=== PATIENT | female | born 1950 | race Caucasian/White ===

== ENCOUNTER → 2016-10-09 | Outpatient (CLI) | payer OTHER ==
[~2016-10-09] MED LIST: ASPEC81 PO; BUPR-269 PO; CALCTAB5 PO; CHOL100010 PO; INSUINJ4 SQ; METF1000 PO; METO25TA3 PO; MULTTAB58 PO; NTRGSL/4 UT; OMEP40CA PO; RANITAB33 PO; SIMV40TA2 PO; VITAMIN B12 INJ
[2016-10-09 17:53] LABS: CHOLESTEROL/HDL RATIO 2.9
== END | disposition home or self-care (01) ==
LOC: C.LABPVFM 11:28
PROVIDERS: ATTEND Internal Medicine Cardiovascular Disease
DX: E78.00 Pure hypercholesterolemia, unspecified (principal)

== ENCOUNTER → 2016-12-03 | Outpatient (CLI) | payer OTHER ==
--- NOTE | 2016-12-03 12:37 | DIAGNOSTIC IMAGING REPORT ---
ULTRASOUND OF THE CAROTID ARTERIES CLINICAL HISTORY: I65.29 Carotid artery [id number] COMPARISON STUDY: 04/14/2013 TECHNIQUE: Real-time, grayscale, and color Doppler sonography of the carotid arteries was performed. Imaging reviewed in the transverse and longitudinal planes. NASCET criteria was utilized for stenosis calcification. FINDINGS: There is mild to moderate atherosclerotic plaque present . The peak systolic velocity within the right internal carotid artery is 71 cm/sec. The systolic velocity ratio of right internal to common carotid artery is 1.4. The peak systolic velocity within the left internal carotid artery is 70 cm/sec. The systolic velocity ratio left internal to common carotid artery is 1.1. Antegrade flow is seen in the vertebral arteries. The external carotid arteries are patent. Blood pressure in the right arm measured 166 mm/Hg. Blood pressure in the left arm measured 163 mm/Hg. IMPRESSION: No evidence of hemodynamically significant carotid stenosis. Electronically signed by: Nitesh Upton M.D. 12/03/2016 12:35 PM Dictated Date/Time: 12/03/2016 12:34 PM
== END | disposition home or self-care (01) ==
LOC: C.ULTR 11:59
PROVIDERS: ATTEND Nurse Practitioner Family
DX: I65.23 Occlusion and stenosis of bilateral carotid arteries (principal); R42 Dizziness and giddiness; W19.XXXA Unspecified fall, initial encounter

== ENCOUNTER → 2017-01-10 | Outpatient (CLI) | payer OTHER ==
[2017-01-10 17:48] LABS: BLOOD UREA NITROGEN 13 mg/dl (7-18); BUN/CREATININE RATIO 23.4 (10-20); CALCIUM 8.8 mg/dl (8.5-10.1); CARBON DIOXIDE 27 mmol/L (21-32); CHLORIDE 105 mmol/L (98-107); CREATININE 0.56 mg/dl (0.60-1.20); GLUCOSE 118 mg/dl (70-99); SODIUM 142 mmol/L (136-145)
[2017-01-10 17:51] LABS: ESTIMATED AVERAGE GLUCOSE 166 mg/dl; HA1C FLAG Normal (Normal)
== END | disposition home or self-care (01) ==
LOC: C.LABPVFM 10:54
PROVIDERS: ATTEND Nurse Practitioner
DX: E55.9 Vitamin D deficiency, unspecified (principal); I10 Essential (primary) hypertension; E11.9 Type 2 diabetes mellitus without complications

== ENCOUNTER → 2017-01-16 | Outpatient (CLI) | payer OTHER | END | disposition home or self-care (01) | LOC: C.LABPVFM 14:01 | PROVIDERS: ATTEND Nurse Practitioner | DX: E55.9 Vitamin D deficiency, unspecified (principal); E53.8 Deficiency of other specified B group vitamins; R41.3 Other amnesia ==

== ENCOUNTER → 2017-02-25 | Outpatient (CLI) | payer OTHER ==
--- NOTE | 2017-02-25 14:31 | MAMMOGRAPHY REPORT ---
BILATERAL DIGITAL SCREENING MAMMOGRAM WITH CAD: 02/25/2017 CLINICAL HISTORY: Routine screening. TECHNIQUE: Current study was also evaluated with a Computer Aided Detection (CAD) system. Bilateral CC and MLO views were obtained. COMPARISON: Comparison is made to exams dated: 02/23/2016 mammogram, 09/22/2014 mammogram, 09/21/2013 m ammogram, 09/18/2012 mammogram, 01/29/2011 mammogram, and 01/26/2010 mammogram - [facility] enter. BREAST COMPOSITION: The tissue of both breasts is almost entirely fatty. FINDINGS: No suspicious masses, calcifications, or areas of architectural distortion are noted in ei ther breast. There has been no significant interval change compared to prior exams. IMPRESSION: ACR BI-RADS CATEGORY 1: NEGATIVE There is no mammographic evidence of malignancy. A 1 year screening mammogram is recommended. The pa tient will receive written notification of the results. Approximately 10% of breast cancers are not detected with mammography. A negative mammographic report should not delay biopsy if a clinically suggestive mass is present. Mindy Rangel M.D. ah/:02/25/2017 12:15:16 Ultrasound Technol: Thomas Chaudhari RT(R)(M), [facility] letter sent: Normal 1/2 BI-RADS Code: ACR BI-RADS Category 1: Negative
== END | disposition home or self-care (01) ==
LOC: C.MAMM 08:35
PROVIDERS: ATTEND Nurse Practitioner
DX: Z12.31 Encounter for screening mammogram for malignant neoplasm of breast (principal)

== ENCOUNTER → 2017-07-10 | Outpatient (CLI) | payer OTHER ==
[2017-07-10 13:06] LABS: BLOOD UREA NITROGEN 15 mg/dl (7-18); BUN/CREATININE RATIO 23.7 (10-20); CALCIUM 9.5 mg/dl (8.5-10.1); CARBON DIOXIDE 27 mmol/L (21-32); CHLORIDE 103 mmol/L (98-107); CREATININE 0.64 mg/dl (0.60-1.20); GLUCOSE 99 mg/dl (70-99); SODIUM 139 mmol/L (136-145)
[2017-07-10 13:35] LABS: ESTIMATED AVERAGE GLUCOSE 140 mg/dl; HA1C FLAG Normal (Normal)
== END | disposition home or self-care (01) ==
LOC: C.LABPVFM 11:06
PROVIDERS: ATTEND Nurse Practitioner
DX: E11.9 Type 2 diabetes mellitus without complications (principal); I10 Essential (primary) hypertension

== ENCOUNTER → 2017-07-30 | Outpatient (CLI) | payer OTHER ==
--- NOTE | 2017-07-30 16:30 | DIAGNOSTIC IMAGING REPORT ---
RIBS UNILATERAL WITH PA CHEST CLINICAL HISTORY: 67 years-old Female presenting with RIB PAIN LT. TECHNIQUE: Frontal and oblique views of the left ribs as well as PA view of the chest was obtained. COMPARISON: Chest x-ray from 06/20/2014. FINDINGS: Atherosclerosis of the aortic arch. Mild enlargement of the cardiac silhouette, unchanged. Bandlike opacity at the left lung base with blunting of the left costophrenic angle. No pneumothorax. Right lung and pleural space clear. Cholecystectomy clips noted. Suture margins noted in the epigastrium and left mid abdomen, possibly from prior gastric bypass. Cortical deformity of the anterolateral left third rib. No additional cortical deformity to suggest rib fracture. IMPRESSION: 1. Cortical deformity of the anterolateral left third rib. Correlate for point tenderness to assess for acuity. 2. Left basilar atelectasis and trace left pleural effusion suspected. Electronically signed by: Lino Gunter M.D. 07/30/2017 4:28 PM Dictated Date/Time: 07/30/2017 4:26 PM
== END | disposition home or self-care (01) ==
LOC: C.RADPV 15:57
PROVIDERS: ATTEND Family Medicine
DX: R07.81 Pleurodynia (principal); R93.7 Abnormal findings on diagnostic imaging of other parts of musculoskeletal system; R91.8 Other nonspecific abnormal finding of lung field

== ENCOUNTER 2017-08-22 13:16 | Emergency (ER) | payer OTHER ==
[~2017-08-22] VITALS: Ht 144.8 cm; Wt 82.9 kg
[2017-08-22 13:23] VITALS: TEMP 36.7; O2SAT 95; Ht 144.8 cm; Wt 82.9 kg
[2017-08-22 13:49] LABS: BASO % 0.5 %; BASO ABS # 0.04 K/uL (0-0.2); EOS % 1.6 %; EOS ABS # 0.13 K/uL (0-0.5); HEMATOCRIT 38.8 % (37-47); HEMOGLOBIN 12.6 g/dL (12.0-16.0); IG# 0.02 K/uL (0.00-0.02); LYMPH % 21.7 %; LYMPH ABS # 1.75 K/uL (1.2-3.4); MEAN CELL VOLUME 78.5 fL (80-100); MEAN CORPUSCULAR HEMOGLOBIN 25.5 pg (25-34); MEAN CORPUSCULAR HGB CONC 32.5 g/dl (32-36); MEAN PLATELET VOLUME 9.9 fL (7.4-10.4); MONO % 7.7 %; MONO ABS # 0.62 K/uL (0.11-0.59); NEUT % 68.3 %; PLATELET COUNT 233 K/uL (130-400); RED CELL DISTRIBUTION WIDTH CV 14.8 % (11.5-14.5); RED CELL DISTRIBUTION WIDTH SD 42.5 fL (36.4-46.3); WHITE BLOOD COUNT 8.06 K/uL (4.8-10.8)
[2017-08-22 14:00] LABS: PTT PATIENT 23.7 SECONDS (21.0-31.0)
[2017-08-22 14:14] LABS: ALBUMIN 3.7 gm/dl (3.4-5.0); ALT/SGPT 31 U/L (12-78); BLOOD UREA NITROGEN 15 mg/dl (7-18); CALCIUM 9.6 mg/dl (8.5-10.1); CARBON DIOXIDE 27 mmol/L (21-32); CREATININE 0.65 mg/dl (0.60-1.20); GLUCOSE 146 mg/dl (70-99); LIPASE 74 U/L (73-393); POTASSIUM 4.2 mmol/L (3.5-5.1); SODIUM 139 mmol/L (136-145)
--- NOTE | 2017-08-22 14:16 | DIAGNOSTIC IMAGING REPORT ---
HEAD WITHOUT CONTRAST (CT) CT DOSE: 537.48 mGy.cm HISTORY: Mental status change facial droop TECHNIQUE: Multiaxial CT images of the head were performed without the use of intravenous contrast. A dose lowering technique was utilized adhering to the principles of ALARA. Comparison: None. Findings: The paranasal sinuses and mastoid air cells are clear. The calvarium and skull base are intact. The ventricles and sulci are within normal limits. There is no mass, hematoma, midline shift, or acute infarct. Mild chronic small vessel change and atrophy considered age-related. Impression: No acute intracranial abnormality. Mild chronic atrophy and small vessel change unremarkable for age. The above report was generated using voice recognition software. It may contain grammatical, syntax or spelling errors. Electronically signed by: Leo Robles M.D. 08/22/2017 2:15 PM Dictated Date/Time: 08/22/2017 2:09 PM
[2017-08-22 14:20] LABS: ALKALINE PHOSPHATASE 70 U/L (45-117); AST/SGOT 19 U/L (15-37); CKMB 0.7 ng/ml (0.5-3.6); TOTAL PROTEIN 7.7 gm/dl (6.4-8.2)
[2017-08-22] MEDS ORDERED: BUPR200T2 PO (14:22)
[2017-08-22] MEDS ORDERED: METF-384 PO (14:22)
[2017-08-22] MEDS ORDERED: MULT-506 PO (14:22)
[2017-08-22] MEDS ORDERED: METO25TA3 PO (14:22)
[2017-08-22] MEDS ORDERED: CALC-51 PO (14:22)
[2017-08-22] MEDS ORDERED: CYNI1000 IM (14:22)
[2017-08-22] MEDS ORDERED: LISI2.5T5 PO (14:22)
[2017-08-22] MEDS ORDERED: CHOL1000 PO (14:22)
[2017-08-22] MEDS ORDERED: ASPI81TA28 PO (14:22)
[2017-08-22] MEDS ORDERED: INSDGI SC (14:22)
--- NOTE | 2017-08-22 14:42 | EMERGENCY ROOM VISIT NOTE ---
ED Visit Note First contact with patient: 13:27 Patient was seen by our PA/PAINT DIPPER. I was involved in the patient's care and did evaluate the patient myself. I was involved in the care throughout the ER stay. The patient presents with left facial numbness and weakness. 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 She has no extremity numbness or weakness-no other stroke findings. There is no facial cellulitis. Neurology will be contacted for advice on further care.
--- NOTE | 2017-08-22 16:56 | DIAGNOSTIC IMAGING REPORT ---
MRI OF THE BRAIN WITHOUT IV CONTRAST CLINICAL HISTORY: Left-sided facial droop. COMPARISON STUDY: CT of the brain dated 08/22/2017. TECHNIQUE: MRI of the brain was performed utilizing various T1 and T2-weighted sequences in the axial, sagittal, and coronal planes. IV contrast was not administered for this examination. The examination is modestly degraded by motion artifact. FINDINGS: Brain parenchyma: There are age-related involutional changes noting moderate to advanced confluent subcortical and periventricular microangiopathic disease. There is no hemorrhage or mass effect. There is no restricted diffusion to suggest acute ischemia. Thomas-white matter differentiation is preserved. No extra-axial fluid collection is seen. The cerebellar tonsils are normal in configuration. Ventricles, sulci, and cisterns: Prominent secondary to involutional change. Pituitary and sella: Unremarkable. Intracranial vasculature: Normal flow voids are maintained at the skull base. Orbits: The bony orbits are grossly intact. Orbital contents are normal in appearance noting bilateral ocular lens implants. Sinuses and mastoids: There is moderate mucosal thickening the right maxillary antrum. Trace fluid is seen within the sphenoid sinuses. Mucosal of thickening is seen within the ethmoid sinuses. The mastoid air cells are well pneumatized. Calvarium: Unremarkable. Cervical cord: Partially visualized cervical spinal cord is normal in morphology and signal intensity. IMPRESSION: No acute intracranial abnormality. Electronically signed by: Vimal Marquez M.D. 08/22/2017 4:54 PM Dictated Date/Time: 08/22/2017 4:52 PM
[2017-08-22] MEDS ORDERED: NITROFURANTOIN MONOHYDRATE 100 MG CAP PO STA (17:00)
[2017-08-22] MEDS ORDERED: NITR-5 PO (17:11)
[2017-08-22] MEDS ORDERED: PRED20TA2 PO (17:11)
--- NOTE | 2017-08-22 17:13 | EMERGENCY ROOM VISIT NOTE ---
History First contact with patient: 13:27 Chief Complaint: CVA SYMPTOMS Stated Complaint: STROKE SYMPTOMS Nursing Triage Summary: See triage note History of Present Illness The patient is a 67 year old female who presents to the Emergency Room with complaints of left facial weakness and droop which started at 8:30 PM last evening. The patient denies any weakness in her upper or lower extremities. The patient denies any memory loss. The patient denies any visual changes or dizziness. The patient denies any swelling of her legs or leg pain. The patient states that she went to [facility] today for an appointment and was sent here by ambulance for further evaluation. The patient denies any chest pain or shortness of breath. The patient denies any prior stroke she does admit to prior [place]. The patient is followed by Dr. Horowitz for her cardiology. The patient is not on any blood thinners. The patient does take cholesterol medication. Review of Systems 10 system review was performed and was negative unless stated otherwise history of present illness. Past Medical/Surgical History Medical Problems: (1) Diabetes (2) Heart disease (3) Hypertension Surgical Problems: (1) H/O gastric bypass (2) Hx of cholecystectomy Family History Diabetes mellitus FH: gallbladder disease FH: heart disease Hypertension Social History Smoking Status: Former Smoker Alcohol Use: none Drug Use: none Marital Status: Housing Status: lives with family Occupation Status: retired Current/Historical Medications Scheduled Aspirin (Aspirin Ec), 81 MG PO DAILY Bupropion (Wellbutrin Sr), 200 MG PO BID Calcium Carbonate-Vitamin D (Calcium), 1 TAB PO BID Cholecalciferol (Vitamin D3), 3 TAB PO DAILY Cyanocobalamin (Cyanocobalamin), 1 ML IM MONTHLY Insulin Glargine (Lantus), 30 UNITS SC DAILY Lisinopril (Lisinopril), 2.5 MG PO DAILY Metformin Hcl (Glucophage), 1,000 MG PO BID Metoprolol Succ (Toprol Xl) (Toprol-Xl), 12.5 MG PO DAILY Multivitamin (Multivitamin), 1 TAB PO DAILY Nitroglycerin (Nitrostat), 0.4 MG UT PRN Ranitidine Hcl (Zantac), 75 MG PO QAM Simvastatin (Zocor), 40 MG PO HS Physical Exam Vital Signs Date Time Temp Pulse Resp B/P (MAP) Pulse Ox O2 Delivery O2 Flow Rate FiO2 08/22/17 16:50 71 16 170/65 94 Room Air 08/22/17 13:34 68 08/22/17 13:23 95 Room Air 08/22/17 13:23 36.7 68 18 175/91 95 Room Air Physical Exam GENERAL: 67-year-old obese white female appears in no acute distress. MENTAL Status: Alert and oriented 3. EYES: PERRLA. EOMs intact. The patient is able to close her eyes but states she can still see a thin streak of light in the left eye. EARS: Canals clear. TMs without fluid level noted. FACE: Left-sided facial droop is noted. NECK: Supple, no lymphadenopathy noted. No carotid bruits noted. LUNGS: Clear auscultation without wheezes rales or rhonchi. CARDIAC: Regular rate and rhythm without murmur. Pulses is full and equal throughout. ABDOMEN: Positive bowel sounds all 4 quadrants. Soft, nontender to palpation without organomegaly or masses. NEURO: Slight decreased sensation on the left side of the face as compared to the right. Patient is able to raise her eyebrows, puff out her cheeks and stick out her tongue although her tongue deviates to the right. Strength of the tongue is equal to the left as well as to the right. She is able to shrug her shoulders. Bilateral upper and lower extremities with 5 out of 5 strength and symmetrical. Alternating finger motions are intact. Cerebellar function intact with [id number]. Negative pronator drift. LOWER EXTREMITY is: Calves are nontender to palpation . No Cyanosis or Edema Noted Medical Decision & Procedures ER Provider Diagnostic Interpretation: Patient Name: RALPH AGOSTO Unit Number: [id number] Dictated: 08/22/171651 Transcribed: 08/22/171651 EV Printed Date/Time: [~ rep prt dt]/[~ rep prt tm] [~ rep ct labl] - [~ rep ct ivnm] [facility] [place] [address] Dictated: 08/22/171651 Transcribed: 08/22/171651 EV Printed Date/Time: [~ rep prt dt]/[~ rep prt tm] [~ rep ct labl] - [~ rep ct ivnm] MRI OF THE BRAIN WITHOUT IV CONTRAST CLINICAL HISTORY: Left-sided facial droop. COMPARISON STUDY: CT of the brain dated 08/22/2017. TECHNIQUE: MRI of the brain was performed utilizing various T1 and T2-weighted sequences in the axial, sagittal, and coronal planes. IV contrast was not administered for this examination. The examination is modestly degraded by motion artifact. FINDINGS: Brain parenchyma: There are age-related involutional changes noting moderate to advanced confluent subcortical and periventricular microangiopathic disease. There is no hemorrhage or mass effect. There is no restricted diffusion to suggest acute ischemia. Thomas-white matter differentiation is preserved. No extra-axial fluid collection is seen. The cerebellar tonsils are normal in configuration. Ventricles, sulci, and cisterns: Prominent secondary to involutional change. Pituitary and sella: Unremarkable. Intracranial vasculature: Normal flow voids are maintained at the skull base. Orbits: The bony orbits are grossly intact. Orbital contents are normal in appearance noting bilateral ocular lens implants. Sinuses and mastoids: There is moderate mucosal thickening the right maxillary antrum. Trace fluid is seen within the sphenoid sinuses. Mucosal of thickening is seen within the ethmoid sinuses. The mastoid air cells are well pneumatized. Calvarium: Unremarkable. Cervical cord: Partially visualized cervical spinal cord is normal in morphology and signal intensity. IMPRESSION: No acute intracranial abnormality. Electronically signed by: Vimal Marquez M.D. 08/22/2017 4:54 PM Dictated Date/Time: 08/22/2017 4:52 PM The status of this report is Signed. Draft = Not yet reviewed or approved by Radiologist. Signed = Reviewed and approved by Radiologist. <AttendingPhy></AttendingPhy> <FamilyPhy>Eli Gavin C.R.N.P</FamilyPhy> < PrimaryPhy>Eli Gavin C.R.N.P</PrimaryPhy> <UnitNumber>[id number]</ UnitNumber> <VisitNumber>[id number]</VisitNumber> <PatientName>RALPH AGOSTO< /PatientName> <DateOfBirth>1950</DateOfBirth> <Location>[facility]</Location> < ServiceDate>08/22/17</ServiceDate> <MNE>ESINDI</MNE> <OrderingPhy>Ayanna Robles PA-C</OrderingPhy> <OrderingPhyMNE>f rep ord dr forrest</OrderingPhyMNE> < DictatingPhyMNE>f rep dict dr forrest</DictatingPhyMNE> <CCListMNE>f rep ct mne</ CCListMNE> <AdmittingPhyMNE>f pt admit dr forrest</AdmittingPhyMNE> <AttendingPhyMNE >f pt attend dr forrest</AttendingPhyMNE> <ConsultingPhyMNE>f pt consult dr forrest</ConsultingPhyMNE> <FamilyPhyMNE>f pt fam dr frorest</FamilyPhyMNE> <OtherPhyMNE>f pt other dr forrest</OtherPhyMNE> < PrimaryPhyMNE>f pt prim care dr forrest</PrimaryPhyMNE> <ReferringPhyMNE>f pt referring dr forrest</ReferringPhyMNE> Patient Name: RALPH AGOSTO Unit Number: [id number] Dictated: 08/22/171408 Transcribed: 08/22/17 140 MS Printed Date/Time: [~ rep prt dt]/[~ rep prt tm] [~ rep ct labl] - [~ rep ct ivnm] [facility] [place] [address] Dictated: 08/22/171408 Transcribed: 08/22/17 140 MS Printed Date/Time: [~ rep prt dt]/[~ rep prt tm] [~ rep ct labl] - [~ rep ct ivnm] HEAD WITHOUT CONTRAST (CT) CT DOSE: 537.48 mGy.cm HISTORY: Mental status change facial droop TECHNIQUE: Multiaxial CT images of the head were performed without the use of intravenous contrast. A dose lowering technique was utilized adhering to the principles of ALARA. Comparison: None. Findings: The paranasal sinuses and mastoid air cells are clear. The calvarium and skull base are intact. The ventricles and sulci are within normal limits. There is no mass, hematoma, midline shift, or acute infarct. Mild chronic small vessel change and atrophy considered age-related. Impression: No acute intracranial abnormality. Mild chronic atrophy and small vessel change unremarkable for age. The above report was generated using voice recognition software. It may contain grammatical, syntax or spelling errors. Electronically signed by: Leo Robles M.D. 08/22/2017 2:15 PM Dictated Date/Time: 08/22/2017 2:09 PM The status of this report is Signed. Draft = Not yet reviewed or approved by Radiologist. Signed = Reviewed and approved by Radiologist. <AttendingPhy></AttendingPhy> <FamilyPhy>Eli Gavin C.R.N.P</FamilyPhy> < PrimaryPhy>Eli Gavin C.R.N.P</PrimaryPhy> <UnitNumber>[id number]</ UnitNumber> <VisitNumber>[id number]</VisitNumber> <PatientName>RALPH AGOSTO< /PatientName> <DateOfBirth>1950</DateOfBirth> <Location>[facility]</Location> < ServiceDate>08/22/17</ServiceDate> <MNE>ESINDI</MNE> <OrderingPhy>Ayanna Robles PA-C</OrderingPhy> <OrderingPhyMNE>f rep ord dr forrest</OrderingPhyMNE> < DictatingPhyMNE>f rep dict dr forrest</DictatingPhyMNE> <CCListMNE>f rep ct mne</ CCListMNE> <AdmittingPhyMNE>f pt admit dr forrest</AdmittingPhyMNE> <AttendingPhyMNE >f pt attend dr forrest</AttendingPhyMNE> <ConsultingPhyMNE>f pt consult dr forrest</ConsultingPhyMNE> <FamilyPhyMNE>f pt fam dr forrest</FamilyPhyMNE> <OtherPhyMNE>f pt other dr forrest</OtherPhyMNE> < PrimaryPhyMNE>f pt prim care dr forrest</PrimaryPhyMNE> <ReferringPhyMNE>f pt referring dr forrest</ReferringPhyMNE> Laboratory Results 08/22/17 13:35 Red Blood Count 4.94, Mean Corpuscular Volume 78.5, Mean Corpuscular Hemoglobin 25.5, Mean Corpuscular Hemoglobin Concent 32.5, Mean Platelet Volume 9.9, Neutrophils (%) (Auto) 68.3, Lymphocytes (%) (Auto) 21.7, Monocytes (%) (Auto) 7.7, Eosinophils (%) (Auto) 1.6, Basophils (%) (Auto) 0.5, Neutrophils # (Auto) 5.50, Lymphocytes # (Auto) 1.75, Monocytes # (Auto) 0.62, Eosinophils # (Auto) 0.13, Basophils # (Auto) 0.04 08/22/17 13:35 Test 08/22/17 13:35 08/22/17 15:07 White Blood Count 8.06 K/uL (4.8-10.8) Red Blood Count 4.94 M/uL (4.2-5.4) Hemoglobin 12.6 g/dL (12.0-16.0) Hematocrit 38.8 % (37-47) Mean Corpuscular Volume 78.5 fL (80-100) Mean Corpuscular Hemoglobin 25.5 pg (25-34) Mean Corpuscular Hemoglobin Concent 32.5 g/dl (32-36) Platelet Count 233 K/uL (130-400) Mean Platelet Volume 9.9 fL (7.4-10.4) Neutrophils (%) (Auto) 68.3 % Lymphocytes (%) (Auto) 21.7 % Monocytes (%) (Auto) 7.7 % Eosinophils (%) (Auto) 1.6 % Basophils (%) (Auto) 0.5 % Neutrophils # (Auto) 5.50 K/uL (1.4-6.5) Lymphocytes # (Auto) 1.75 K/uL (1.2-3.4) Monocytes # (Auto) 0.62 K/uL (0.11-0.59) Eosinophils # (Auto) 0.13 K/uL (0-0.5) Basophils # (Auto) 0.04 K/uL (0-0.2) RDW Standard Deviation 42.5 fL (36.4-46.3) RDW Coefficient of Variation 14.8 % (11.5-14.5) Immature Granulocyte % (Auto) 0.2 % Immature Granulocyte # (Auto) 0.02 K/uL (0.00-0.02) Prothrombin Time 10.0 SECONDS (9.0-12.0) Prothromb Time International Ratio 1.0 (0.9-1.1) Activated Partial Thromboplast Time 23.7 SECONDS (21.0-31.0) Partial Thromboplastin Ratio 0.9 Anion Gap 10.0 mmol/L (3-11) Est Creatinine Clear Calc Drug Dose 75.7 ml/min Estimated GFR () 107.2 Estimated GFR (Non- 92.5 BUN/Creatinine Ratio 22.3 (10-20) Calcium Level 9.6 mg/dl (8.5-10.1) Total Bilirubin 0.6 mg/dl (0.2-1) Direct Bilirubin 0.1 mg/dl (0-0.2) Aspartate Amino Transf (AST/SGOT) 19 U/L (15-37) Alanine Aminotransferase (ALT/SGPT) 31 U/L (12-78) Alkaline Phosphatase 70 U/L (45-117) Total Creatine Kinase 53 U/L (26-192) Creatine Kinase MB 0.7 ng/ml (0.5-3.6) Creatine Kinase MB Ratio 1.3 (0-3.0) Troponin I < 0.015 ng/ml (0-0.045) Pro-B-Type Natriuretic Peptide 202 pg/ml (0-900) Total Protein 7.7 gm/dl (6.4-8.2) Albumin 3.7 gm/dl (3.4-5.0) Lipase 74 U/L (73-393) Urine Color YELLOW Urine Appearance CLEAR (CLEAR) Urine pH 7.5 (4.5-7.5) Urine Specific Witt 1.010 (1.000-1.030) Urine Protein NEG (NEG) Urine Glucose (UA) NEG (NEG) Urine Ketones NEG (NEG) Urine Occult Blood NEG (NEG) Urine Nitrite POS (NEG) Urine Bilirubin NEG (NEG) Urine Urobilinogen NEG (NEG) Urine Leukocyte Esterase MODERATE (NEG) Urine WBC (Auto) 1-5 /hpf (0-5) Urine RBC (Auto) 0-4 /hpf (0-4) Urine Hyaline Casts (Auto) 0 /lpf (0-5) Urine Epithelial Cells (Auto) 20-30 /lpf (0-5) Urine Bacteria (Auto) 4+ (NEG) ECG Indication: other (facial droop) Rhythm: normal sinus Findings: no acute ischemic change Change: no significant change ED Course The patient was evaluated. The patient's EMR medication list were reviewed. Patient's EKG was reviewed and interpreted by myself. There are no significant changes from 06/19/2014 as above. IV access was obtained. The patient was placed on a monitor and continuous pulse ox. CBC and differential, renal profile, LFTs and lipase levels were ordered. Coags were ordered. CK-MB, troponin and BNP were ordered. CT of the head was ordered interpreted by radiologist as above without any acute findings. Labs are reviewed and were unremarkable. The patient was independently evaluated by Dr. Prasad who agreed with treatment plan. I contacted Dr. Lara about the patient's physical findings. He stated if we got an MRI of the brain and that was negative this was most likely Smith's palsy. An MRI of the brain was then ordered. I spoke with the radiologist who stated an MRI without contrast was adequate MRI was reviewed as above without any abnormal findings. Labs are reviewed. Coags were normal. The patient's glucose was slightly elevated at 146. Remainder labs are unremarkable. Urinalysis revealed positive leukocytes positive nitrates and bacteria. The patient was given Macrobid 100 mg by mouth. She was also given prednisone 40 mg by mouth in the ER. The patient was informed of all findings and discharged home in stable condition.. Medical Decision Differential diagnosis include TIA, CVA, Smith's palsy [place] Drug Monitoring Program Search Results: patient reviewed within database Head Trauma GCS Score: 14 Medication Reconcilliation Current Medication List: was personally reviewed by me Blood Pressure Screening Patient's blood pressure: Elevated blood pressure Blood pressure disposition: Elevated BP felt to be situational Impression Primary Impression: Smith's palsy Additional Impression: UTI (urinary tract infection) Departure Information Dispostion Home / Self-Care Condition GOOD Prescriptions Nitrofurantoin Monohyd Macrocr (Macrobid) 100 Mg Cap 100 MG PO BID for 7 Days, #14 CAP Prov: Ayanna Robles PA-C 08/22/17 Prednisone (Prednisone Tab) 20 Mg Tab 2 TAB PO DAILY for 4 Days, #8 TAB Prov: Ayanna Robles PA-C 08/22/17 Referrals Eli Gavin, C.R.N.P (PCP) Forms HOME CARE DOCUMENTATION FORM, IMPORTANT VISIT INFORMATION, WORK / SCHOOL INSTRUCTIONS Patient Instructions ED UTI Cystitis Female, My [facility] Additional Instructions Take prednisone as prescribed. Keep close eye on your blood sugars all taking the prednisone since they may make her blood sugars go up. Take Macrobid as prescribed. Push fluids. Use [id number] Systane eye lubrication to the left eye until symptoms have resolved. Follow-up with your family doctor on Saturday for reevaluation. If symptoms worsen in the interim, return to ER.. Problem Qualifiers Additional Impression: UTI (urinary tract infection) Urinary tract infection type: acute cystitis Hematuria presence: without hematuria Qualified Codes: N30.00 - Acute cystitis without hematuria
[2017-08-22 17:42] VITALS: BP 115/76; PULSE 75; O2SAT 98
== END 2017-08-22 17:43 | disposition home or self-care (01) ==
LOC: EDBD 13:16 → C.EDB 13:17
DX: G51.0 Bell's palsy (principal); N39.0 Urinary tract infection, site not specified; I25.2 Old myocardial infarction; E11.9 Type 2 diabetes mellitus without complications; I10 Essential (primary) hypertension; Z90.49 Acquired absence of other specified parts of digestive tract; Z98.84 Bariatric surgery status; Z83.3 Family history of diabetes mellitus; Z82.49 Family history of ischemic heart disease and other diseases of the circulatory system; Z87.891 Personal history of nicotine dependence; Z79.82 Long term (current) use of aspirin; Z79.4 Long term (current) use of insulin; Z79.899 Other long term (current) drug therapy; E66.9 Obesity, unspecified; Z68.39 Body mass index [BMI] 39.0-39.9, adult

== ENCOUNTER → 2017-08-26 | Outpatient (CLI) | payer OTHER ==
[~2017-08-26] MED LIST changes: -ASPEC81 PO; +ASPI81TA28 PO; -BUPR-269 PO; +BUPR200T2 PO; +CALC-51 PO; -CALCTAB5 PO; +CHOL1000 PO; -CHOL100010 PO; +CYNI1000 IM; +INSDGI SC; -INSUINJ4 SQ; +LISI2.5T5 PO; +METF-384 PO; -METF1000 PO; +MULT-506 PO; -MULTTAB58 PO; +NITR-5 PO; -OMEP40CA PO; +PRED20TA2 PO; -VITAMIN B12 INJ
== END | disposition home or self-care (01) ==
LOC: C.LABPVFM 13:40
PROVIDERS: ATTEND Family Medicine
DX: G51.0 Bell's palsy (principal)

== ENCOUNTER → 2017-10-11 | Outpatient (CLI) | payer OTHER ==
[~2017-10-11] MED LIST changes: -NITR-5 PO; -PRED20TA2 PO
== END | disposition home or self-care (01) ==
LOC: C.LABPVFM 10:47
PROVIDERS: ATTEND Internal Medicine Cardiovascular Disease
DX: I10 Essential (primary) hypertension (principal); E78.00 Pure hypercholesterolemia, unspecified

== ENCOUNTER → 2017-12-03 | Outpatient (CLI) | payer OTHER ==
[~2017-12-03] MED LIST changes: +LISI-1116 PO; -LISI2.5T5 PO
[2017-12-03 13:37] LABS: HEMOGLOBIN A1C 7.3 % (4.5-5.6)
[2017-12-03 14:14] LABS: BLOOD UREA NITROGEN 12 mg/dl (7-18); CALCIUM 9.3 mg/dl (8.5-10.1); CARBON DIOXIDE 27 mmol/L (21-32); CREATININE 0.61 mg/dl (0.60-1.20); GLUCOSE 128 mg/dl (70-99); SODIUM 139 mmol/L (136-145)
== END | disposition home or self-care (01) ==
LOC: C.LABPVFM 11:12
PROVIDERS: ATTEND Family Medicine
DX: I10 Essential (primary) hypertension (principal); E11.9 Type 2 diabetes mellitus without complications; R30.0 Dysuria

== ENCOUNTER → 2017-12-09 | Outpatient (CLI) | payer OTHER | END | disposition home or self-care (01) | LOC: C.LABPVFM 13:30 | PROVIDERS: ATTEND Nurse Practitioner | DX: R53.83 Other fatigue (principal); R00.2 Palpitations ==

== ENCOUNTER → 2018-02-27 | Outpatient (CLI) | payer OTHER ==
--- NOTE | 2018-02-27 16:00 | MAMMOGRAPHY REPORT ---
BILATERAL DIGITAL SCREENING MAMMOGRAM TOMOSYNTHESIS WITH CAD: 02/27/2018 TECHNIQUE: The study was acquired using full field digital technology and interpreted from soft copy. Breast tomosynthesis in addition to standard 2D mammography was performed. Current study was also ev aluated with a Computer Aided Detection (CAD) system. COMPARISON: Comparison is made to exams dated: 02/25/2017 mammogram, 02/23/2016 mammogram, 09/22/2014 m ammogram, 09/21/2013 mammogram, 09/18/2012 mammogram, and 01/29/2011 mammogram - [facility] enter. BREAST COMPOSITION: The tissue of both breasts is almost entirely fatty. FINDINGS: No suspicious masses, calcifications, or areas of architectural distortion are noted in either breast . There has been no significant interval change compared to prior exams. Scattered bilateral benign-a ppearing calcifications are not significantly changed. Right subareolar asymmetry on the cc view is stable compared to prior exams including the 2009 exam. IMPRESSION: ACR BI-RADS CATEGORY 2: BENIGN There is no mammographic evidence of malignancy. A 1 year screening mammogram is recommended.( 019) The patient will receive written notification of the results. Some breast cancers are not detected with mammography. A negative mammographic report should not alaina y biopsy if a clinically suggestive mass is present. Mindy Rangel M.D. ah/:02/27/2018 13:57:37 Corporate Representative: RT [facility](Daniele)(M), [facility] letter sent: Normal 1/2 BI-RADS Code: ACR BI-RADS Category 2: Benign
== END | disposition home or self-care (01) ==
LOC: C.MAMM 13:30
PROVIDERS: ATTEND Nurse Practitioner
DX: Z12.31 Encounter for screening mammogram for malignant neoplasm of breast (principal)

== ENCOUNTER 2020-04-05 15:05 | Observation (INO) ==
[2020-04-05] MEDS ORDERED: SODIUM CHLORIDE 0.9% 1000ML 1,000 ML IV ONE (15:18)
[2020-04-05] MEDS ORDERED: ONDANSETRON INJ 2 MG/ML 2 ML VIAL IV STA (15:18)
[2020-04-05 15:35] LABS: Basophils # (auto) 0.02 K/uL (0-0.2); Basophils % (auto) 0.3 %; Eosinophils # (auto) 0.15 K/uL (0-0.5); Eosinophils % (auto) 2.1 %; Hematocrit (blood only) 40.6 % (37-47); Hemoglobin 13.2 g/dL (12.0-16.0); Immature Granulocytes # (auto) 0.02 K/uL (0.00-0.02); Immature Granulocytes % (auto) 0.3 %; Lymphocytes # (auto) 1.75 K/uL (1.2-3.4); Lymphocytes % (auto) 24.8 %; Mean Corpuscular Hemoglobin 26.5 pg (25-34); Mean Corpuscular Hgb Conc 32.5 g/dL (32-36); Mean Corpuscular Volume 81.4 fL (80-100); Mean Platelet Volume 10.2 fL (7.4-10.4); Monocytes # (auto) 0.63 K/uL (0.11-0.59); Monocytes % (auto) 8.9 %; Neutrophils # (auto) 4.48 K/uL (1.4-6.5); Neutrophils % (auto) 63.6 %; Platelet Count 211 K/uL (130-400); RDW Coefficient of Variation 14.5 % (11.5-14.5); RDW Standard Deviation 42.6 fL (36.4-46.3); Red Blood Count 4.99 M/uL (4.2-5.4); White Blood Count 7.05 K/uL (4.8-10.8)
--- NOTE | 2020-04-05 15:35 | Emergency Department Note ---
ED Visit Note I assisted Dr. Vargas in the care of this patient. Please see attending attestation for additional information. William Nunez DO Resident, Family & Community Medicine, [facility] . Resident Activity Tracking Resident Involvement: Resident Care Provided Care Provided: Adult Hospital Medicine : Headache Qualifiers: Headache type: unspecified Headache chronicity pattern: acute headache Intractability: not intractable Qualified Code(s): R51 - Headache
[2020-04-05] MEDS ORDERED: OPTIRAY 320 125ml IV ONE (15:43)
[2020-04-05 15:46] LABS: Partial Thromboplastin Ratio 0.9; Partial Thromboplastin Time 24.1 Seconds (21.0-31.0); Prothrombin Time 10.8 Seconds (9.0-12.0)
[2020-04-05 15:47] LABS: iSTAT Creatinine 0.4 mg/dl (0.6-1.3); iSTAT Hemoglobin 12.6 g/dl (12.0-16.0); iSTAT Ionized Calcium 1.18 mmol/l (1.12-1.32); iSTAT Potassium 4.3 mmol/L (3.3-5.0)
--- NOTE | 2020-04-05 15:50 | Emergency Department Note ---
Impression & Plan Brain TIA, Headache, Nausea ED Provider Note Provider: Bradley Vargas MD DATE OF SERVICE: 04/05/2020 CHIEF COMPLAINT: Weakness, headache, nausea HISTORY OF PRESENT ILLNESS: Patient is a 70-year-old female history of diabetes, CAD, hypertension, hyperlipidemia presenting here today via ambulance from her PCP's office. Around 1:45 PM developed some right-sided weakness in the right upper extremity and some slurred speech and right facial droop. Denies any trauma or recent illness. This has markedly improved since that time. Denies speech issues currently. Denies difficulty walking. Endorses some headache but is improving and nausea. Blood pressure was elevated for EMS but is improving here. Given 2 baby aspirin prior to arrival. Denies any visual changes. Denies a history of stroke. REVIEW OF SYSTEMS: A total of 10 review of systems was obtained and negative except as stated above in the HPI. PAST MEDICAL HISTORY: As noted above MEDICATIONS: Reviewed home medications. SOCIAL HISTORY: , lives at home, distant former smoker PHYSICAL EXAM: GENERAL: alert and oriented in no acute distress on stretcher Head: normocephalic and atraumatic EYES: No injection, discharge or icterus. PERRL NECK: Trachea midline. Supple. ENT: Mucous membranes pink and moist. Pharynx without erythema or exudate. LUNGS: Airway patent. No retractions. Breath sounds clear HEART: Regular rate and rhythm. No chest wall tenderness ABDOMEN: Soft and non-tender, without guarding or rebound. SKIN: Acyanotic, warm, dry, without rashes EXTREMITIES: Without swelling, tenderness or deformity NEUROLOGICAL: No aphasia. No facial droop or slurred speech at this time. Normal strength and tone in the extremities. Sensation maybe slightly decreased in RUE. No pronator drift or finger to nose ataxia. EK beats per normal sinus rhythm. No PVC. No acute ST segment elevation or depression. Lead III T wave inversion is notable. In comparison to previous available from August 222017 no change. CONTINUOUS CARDIAC MONITORING: was ordered and showed a heart rate of 65 bpm in NSR Patient's hypertension was referred to the hospitalist HOSPITAL COURSE: 1517 Resident evaluated the patient. 1534 Patient was first seen and H&P performed by myself 1608 Patient reassessed and updated. Patient was resting in bed states still some mild headache but no longer with weakness of the right upper extremity. Patient's laboratory studies and imaging reviewed. Differential includes Infection, dehydration, metabolic abnormality, hypo/hyperglycemia, electrolyte disturbance, anemia, hypoxia, cardiac sources, intracerebral event, toxicologic, neurologic, as well as other pathologies. IMPRESSION/MEDICAL DECISION MAKING: Patient presents with concerning symptoms developing of the past 2 hours for stroke. Made a stroke alert given this. Symptoms are mild now and given this I do not feel that she be a good TPA candidate given the risks associated with the medication. Blood pressure noted to be elevated but somewhat improving. Taken for scans. Basic labs obtained. No significant laboratory abnormality. CT of the head without evidence of bleed or mass. CT angiogram without significant acute occlusive disease noted per radiology report. Patient has minimal to no symptoms at this time. Do not believe again given this that she is a TPA candidate. Will admit for TIA-like symptomatologies given her age and risk factors as well as presentation earlier. Given some Reglan she does complain still of a mild headache. Blood pressure has been improving. Given 2 additional baby aspirin for total of 4 today. Patient's urinalysis is somewhat questionable will send for culture at this time but given she does endorse some dysuria treated with ceftriaxone empirically. No believe this entirely explains her symptoms today. DIAGNOSIS: TIA, right upper extremity weakness DISPOSITION: Hospitalist will evaluate Patient was agreeable with this plan. Past Med/Surg History Medical History (Updated 04/05/20 @ 16:22 by Bradley Vargas M.D.) Anemia Arteriosclerotic coronary artery disease Carotid artery plaque Carotid bruit Grief reaction Inflammatory polyps of colon Iron deficiency anemia Lyme disease Memory difficulty Osteopenia Tubular adenoma of colon Surgical History History of cataract surgery History of cholecystectomy History of coronary artery stent placement Cath stent 1 distal right coronary artery History of dental surgery History of gastric bypass History of hysterectomy Family History Family/Other Colorectal cancer Cousin Aunt Breast cancer Father Myocardial infarction Denies family history of Ovarian cancer Prostate cancer Social History Smoking Status: Former smoker Hx Alcohol Use: No Hx Substance Use: No Preferred Language: [place] marital status: Current Living Situation: Spouse current occupational status: retired Feels Safe at Home: Yes caffeine: Yes during the past year weight has: remained stable Dental Care, Regularly: No Seatbelt Use: always Sunscreen Use: No Allergies Allergies Allergy/AdvReac Type Severity Reaction Status Date / Time No Known Allergies Allergy Verified 04/05/20 16:52 Home Meds Home Medications Medication Instructions Recorded Confirmed cyanocobalamin (vitamin B-12) 1,000 mcg IM MONTHLY ml 03/27/19 04/05/20 1,000 mcg/mL injection solution aspirin [Aspirin Low Dose] 81 mg PO QAM 04/05/20 04/05/20 cholecalciferol (vitamin D3) 3,000 units PO QAM 04/05/20 04/05/20 escitalopram oxalate [Lexapro] 10 mg PO QAM 04/05/20 04/05/20 lisinopril 5 mg PO QAM 04/05/20 04/05/20 metformin 1,000 mg PO BID 04/05/20 04/05/20 metoprolol succinate 25 mg PO QAM 04/05/20 04/05/20 multivitamin [Daily Multi-Vitamin] 1 tab PO QAM 04/05/20 04/05/20 nitroglycerin 0.4 mg SL DIRECTED PRN 04/05/20 04/05/20 simvastatin 40 mg PO QPM 04/05/20 04/05/20 Previous Rx's Medication Instructions Recorded insulin glargine 100 unit/mL (3 40 units SQ HS 90 Days #36 ml 04/17/19 mL) subcutaneous pen Results & Data (ED) Vital Signs Vital Signs - 24 hr 04/05/20 15:14 04/05/20 15:22 04/05/20 15:31 Temperature 36.5 C Temperature Source Oral Pulse Rate 67 64 Pulse Rate [Apical] Pulse Rate from SpO2 Sensor 63 Pulse Rhythm [Apical] Respiratory Rate 20 18 Respiratory Effort / Characteristics Non-Labored Spontaneous Respiratory Depth Normal Respiratory Pattern Regular Blood Pressure 174/67 H 126/85 Blood Pressure [Right Arm] Blood Pressure Mean 102 113 Blood Pressure Mean [Right Arm] Pulse Oximetry 88 L 97 96 Oxygen Delivery Method Room Air Nasal Cannula Oxygen Flow Rate 2 Sepsis Recent Fever Within 48 Hours No Sepsis New/Unexplained Change in Mental Status No Sepsis Action Taken by Nursing No Action Required 04/05/20 16:01 04/05/20 16:07 04/05/20 17:25 Temperature Temperature Source Pulse Rate 64 62 Pulse Rate [Apical] 65 Pulse Rate from SpO2 Sensor Pulse Rhythm [Apical] Regular Respiratory Rate 18 17 18 Respiratory Effort / Characteristics Non-Labored Respiratory Depth Normal Respiratory Pattern Blood Pressure 167/76 H 172/81 H Blood Pressure [Right Arm] 157/73 H Blood Pressure Mean 110 130 Blood Pressure Mean [Right Arm] 101 Pulse Oximetry 96 96 98 Oxygen Delivery Method Room Air Oxygen Flow Rate Sepsis Recent Fever Within 48 Hours Sepsis New/Unexplained Change in Mental Status Sepsis Action Taken by Nursing Laboratory Data Result diagrams: 04/05/20 14:50 04/05/20 14:50 Lab Results 04/05/20 04/05/20 04/05/20 Range/Units 14:50 14:50 14:50 WBC 7.05 (4.8-10.8) K/uL RBC 4.99 (4.2-5.4) M/uL Hgb 13.2 (12.0-16.0) g/dL POC Hgb (12.0-16.0) g/dl Hct 40.6 (37-47) % POC Hct (37-47) % MCV 81.4 (80-100) fL MCH 26.5 (25-34) pg MCHC 32.5 (32-36) g/dL RDW Std Deviation 42.6 (36.4-46.3) fL RDW Coeff of Chris 14.5 (11.5-14.5) % Plt Count 211 (130-400) K/uL MPV 10.2 (7.4-10.4) fL Immature Gran % (Auto) 0.3 % Neut % (Auto) 63.6 % Lymph % (Auto) 24.8 % [place] % (Auto) 8.9 % Eos % (Auto) 2.1 % Baso % (Auto) 0.3 % Neut # (Auto) 4.48 (1.4-6.5) K/uL Lymph # (Auto) 1.75 (1.2-3.4) K/uL [place] # (Auto) 0.63 H (0.11-0.59) K/uL Eos # (Auto) 0.15 (0-0.5) K/uL Baso # (Auto) 0.02 (0-0.2) K/uL Immature Gran # (Auto) 0.02 (0.00-0.02) K/uL PT 10.8 (9.0-12.0) Seconds INR 1.0 (0.9-1.1) APTT 24.1 (21.0-31.0) Seconds PTT Ratio 0.9 POC Sodium (135-144) mmol/L Sodium 140 (136-145) mmol/L POC Potassium (3.3-5.0) mmol/L Potassium 3.8 (3.5-5.1) mmol/L POC Chloride (101-112) mmol/L Chloride 103 (98-107) mmol/L Carbon Dioxide 30 (21-32) mmol/L POC Total CO2 (24-31) mmol/L Anion Gap 7.0 (3-11) POC Anion Gap (16-25) mmol/L POC BUN (7-18) mg/dl BUN 10 (7-18) mg/dl Creatinine 0.49 L (0.6-1.2) mg/dl POC Creatinine (0.6-1.3) mg/dl Est Cr Clr Drug Dosing 100.5 ml/min Est GFR ( Amer) 115.2 Est GFR (Non-Af Amer) 99.4 BUN/Creatinine Ratio 19.8 (10-20) Glucose 104 H (70-99) mg/dl POC Glucose (other) (70-99) mg/dl Calcium 9.3 (8.5-10.1) mg/dl POC Ioniz Calcium [place] (1.12-1.32) mmol/l Magnesium 1.6 L (1.8-2.4) mg/dl Total Bilirubin 0.7 (0.2-1) mg/dl AST 11 L (15-37) U/L ALT 20 (12-78) U/L Alkaline Phosphatase 58 (45-117) U/L Troponin I < 0.015 (0-0.045) ng/ml Total Protein 7.7 (6.4-8.2) gm/dl Albumin 3.7 (3.4-5.0) gm/dl Globulin 4.0 (2.5-4.0) gm/dl Albumin/Globulin Ratio 0.9 (0.9-2) Urine Color Urine Appearance (Clear) Urine pH (4.5-7.5) Ur Specific [place] (1.000-1.030) Urine Protein (Negative) Urine Glucose (UA) (Negative) Urine Ketones (Negative) Urine Blood (Negative) Urine Nitrite (Negative) Urine Bilirubin (Negative) Urine Urobilinogen (Negative) Ur Leukocyte Esterase (Negative) Urine WBC (Auto) (0-5) /hpf Urine RBC (Auto) (0-4) /hpf U Hyaline Cast (Auto) (0-5) /lpf U Epithel Cells (Auto) (0-5) /lpf Urine Bacteria (Auto) (Negative) Blood Type Antibody Screen 04/05/20 04/05/20 04/05/20 Range/Units 15:24 15:34 16:23 WBC (4.8-10.8) K/uL RBC (4.2-5.4) M/uL Hgb (12.0-16.0) g/dL POC Hgb 12.6 (12.0-16.0) g/dl Hct (37-47) % POC Hct 37 (37-47) % MCV (80-100) fL MCH (25-34) pg MCHC (32-36) g/dL RDW Std Deviation (36.4-46.3) fL RDW Coeff of Chris (11.5-14.5) % Plt Count (130-400) K/uL MPV (7.4-10.4) fL Immature Gran % (Auto) % Neut % (Auto) % Lymph % (Auto) % [place] % (Auto) % Eos % (Auto) % Baso % (Auto) % Neut # (Auto) (1.4-6.5) K/uL Lymph # (Auto) (1.2-3.4) K/uL [place] # (Auto) (0.11-0.59) K/uL Eos # (Auto) (0-0.5) K/uL Baso # (Auto) (0-0.2) K/uL Immature Gran # (Auto) (0.00-0.02) K/uL PT (9.0-12.0) Seconds INR (0.9-1.1) APTT (21.0-31.0) Seconds PTT Ratio POC Sodium 140 (135-144) mmol/L Sodium (136-145) mmol/L POC Potassium 4.3 (3.3-5.0) mmol/L Potassium (3.5-5.1) mmol/L POC Chloride 99 L (101-112) mmol/L Chloride (98-107) mmol/L Carbon Dioxide (21-32) mmol/L POC Total CO2 32 H (24-31) mmol/L Anion Gap (3-11) POC Anion Gap 15.0 L (16-25) mmol/L POC BUN 11 (7-18) mg/dl BUN (7-18) mg/dl Creatinine (0.6-1.2) mg/dl POC Creatinine 0.4 L (0.6-1.3) mg/dl Est Cr Clr Drug Dosing ml/min Est GFR ( Amer) Est GFR (Non-Af Amer) BUN/Creatinine Ratio (10-20) Glucose (70-99) mg/dl POC Glucose (other) 110 H (70-99) mg/dl Calcium (8.5-10.1) mg/dl POC Ioniz Calcium [place] 1.18 (1.12-1.32) mmol/l Magnesium (1.8-2.4) mg/dl Total Bilirubin (0.2-1) mg/dl AST (15-37) U/L ALT (12-78) U/L Alkaline Phosphatase (45-117) U/L Troponin I (0-0.045) ng/ml Total Protein (6.4-8.2) gm/dl Albumin (3.4-5.0) gm/dl Globulin (2.5-4.0) gm/dl Albumin/Globulin Ratio (0.9-2) Urine Color [place] Urine Appearance Clear (Clear) Urine pH 7.0 (4.5-7.5) Ur Specific [place] 1.031 H (1.000-1.030) Urine Protein Negative (Negative) Urine Glucose (UA) Negative (Negative) Urine Ketones Negative (Negative) Urine Blood Negative (Negative) Urine Nitrite Positive A (Negative) Urine Bilirubin Negative (Negative) Urine Urobilinogen Negative (Negative) Ur Leukocyte Esterase Trace H (Negative) Urine WBC (Auto) 1-5 (0-5) /hpf Urine RBC (Auto) 0-4 (0-4) /hpf U Hyaline Cast (Auto) 0 (0-5) /lpf U Epithel Cells (Auto) 10-20 H (0-5) /lpf Urine Bacteria (Auto) 4+ H (Negative) Blood Type A Positive Antibody Screen NEGATIVE Administered Medications Discontinued Medications Aspirin (Aspirin Chew 324 Mg) 162 mg PO NOW STA Stop: 04/05/20 16:14 Last Admin: 04/05/20 16:16 Dose: 162 mg Documented by: [id number] Sodium Chloride (Nss 1000ml) 1,000 mls @ 999 mls/hr IV .Q1H1M ONE Stop: 04/05/20 16:18 Last Infusion: 04/05/20 17:26 Dose: 0 mls/hr Documented by: [id number] Admin: 04/05/20 15:58 Dose: 999 mls/hr Documented by: [id number] Ceftriaxone Sodium (Rocephin) 1,000 mg in 50 mls @ 100 mls/hr IV NOW STA Stop: 04/05/20 17:27 Last Admin: 04/05/20 17:26 Dose: 100 mls/hr Documented by: [id number] Ioversol (Optiray 320 125ml) 116 ml IV ONCE ONE Stop: 04/05/20 15:44 Last Admin: 04/05/20 15:43 Dose: 116 ml Documented by: [id number] Metoclopramide HCl (Metoclopramide Hcl Inj 5 Mg/Ml 2 Ml Vial) 5 mg IV ONE ONE Stop: 04/05/20 16:14 Last Admin: 04/05/20 16:16 Dose: 5 mg Documented by: [id number] Ondansetron HCl (Ondansetron Inj 2 Mg/Ml 2 Ml Vial) 4 mg IV NOW STA Stop: 04/05/20 15:19 Last Admin: 04/05/20 15:58 Dose: 4 mg Documented by: [id number] Discharge Plan Visit Data Chief Complaint: Illness Stated Complaint: HEADACHE, DIZZINESS, NAUSEA ED Provider: Bradley Vargas ED Midlevel Provider: William Nunez Discharge Problem: Brain TIA, Headache, Nausea Patient Disposition: Being Evaluated by Hospitalist Forms Stand Alone Forms: My [facility] Prescriptions Prescriptions: No Action Lantus Solostar U-100 Insulin 100 unit/mL (3 mL) insulin pen 40 units SQ HS 90 Days Qty: 36 RF: 5 cyanocobalamin (vitamin B-12) 1,000 mcg/mL solution 1,000 mcg IM MONTHLY RF: 0 aspirin [Aspirin Low Dose] 81 mg Tablet,Delayed Release (Dr/Ec) 81 mg PO QAM RF: 0 multivitamin [Daily Multi-Vitamin] tablet 1 tab PO QAM RF: 0 simvastatin 40 mg tablet 40 mg PO QPM RF: 0 metformin 1,000 mg tablet 1,000 mg PO BID RF: 0 nitroglycerin 0.4 mg tablet, sublingual 0.4 mg SL DIRECTED PRN (Reason: Chest Pain) RF: 0 lisinopril 5 mg tablet 5 mg PO QAM RF: 0 metoprolol succinate 25 mg tablet extended release 24 hr 25 mg PO QAM RF: 0 escitalopram oxalate [Lexapro] 10 mg tablet 10 mg PO QAM RF: 0 cholecalciferol (vitamin D3) 3,000 unit tablet 3,000 units PO QAM RF: 0 Referrals Referrals: Eli Gavin CRNP [Primary Care Provider] -
--- NOTE | 2020-04-05 15:53 | CT Scan Report ---
CT head/brain wo con CLINICAL HISTORY: Stroke evaluation COMPARISON STUDY: MRI the brain dated 08/22/2017 TECHNIQUE: Axial CT of the brain is performed from the vertex to the skull base. IV contrast was not administered for this examination. A dose lowering technique was utilized adhering to the principles of ALARA. CT DOSE: FINDINGS: No intra or extra-axial mass lesions are visualized. There is no CT evidence of acute cortical infarc tion. There is no evidence of midline shift. There is no acute hemorrhage. No calvarial fractures ar e visualized. There are patchy white matter hypodensities likely on a small vessel basis. There is no evidence of pathologic ventricular dilatation. There is mild sphenoid sinus mucosal thickening IMPRESSION: No acute intracranial findings ACT 112: Negative or not required by law. Electronically signed by: Nitesh Upton M.D. 04/05/2020 3:52 PM
[2020-04-05 15:54] LABS: Alanine Aminotransferase 20 U/L (12-78); Albumin Level 3.7 gm/dl (3.4-5.0); Aspartate Aminotransferase 11 U/L (15-37); BUN Creatinine Ratio 19.8 (10-20); Blood Urea Nitrogen 10 mg/dl (7-18); Calcium 9.3 mg/dl (8.5-10.1); Carbon Dioxide 30 mmol/L (21-32); Chloride 103 mmol/L (98-107); Creatinine Clr Calc Pharmacy 100.5 ml/min; Est GFR (African American) 115.2; Est GFR (Non-African American) 99.4; Glucose 104 mg/dl (70-99); Magnesium 1.6 mg/dl (1.8-2.4); Potassium 3.8 mmol/L (3.5-5.1); Sodium 140 mmol/L (136-145)
[2020-04-05 15:59] LABS: Albumin Globulin Ratio 0.9 (0.9-2); Alkaline Phosphatase 58 U/L (45-117); Bilirubin,Total 0.7 mg/dl (0.2-1); Total Protein 7.7 gm/dl (6.4-8.2); Troponin I < 0.015 ng/ml (0-0.045)
--- NOTE | 2020-04-05 16:08 | CT Scan Report ---
CT angio neck with con CLINICAL HISTORY: Stroke evaluation COMPARISON STUDY: Carotid Doppler ultrasound dated 12/03/2016 TECHNIQUE: CT angiography was performed from the aortic arch to the skull base. MIP imaging was perfo rmed. The patient was scanned in a dynamic helical fashion during intravenous administration of 116 c c of Optiray 320. A dose lowering technique was utilized adhering to the principles of ALARA. CT DOSE: 1415.99 mGy.cm Technique: CT angiogram of the carotid and vertebral arteries was obtained using intravenous contrast and 3-D reconstruction. NASCET criteria was utilized. Findings: The right carotid revealed no evidence of aneurysm and no evidence of dissection. There is no evidenc e of hemodynamic significant stenosis. The left carotid revealed no evidence of hemodynamic significant stenosis. There is no evidence of an eurysm. There is no evidence of dissection. There is mild to moderate left common carotid plaque with out evidence of hemodynamically significant stenosis. There is unusual appearance the proximal basila r artery. There is a small web versus marked focal tortuosity. This finding is of doubtful acute clin ical significance. There is no evidence of hemodynamically significant vertebral stenosis. There is n o evidence of vertebral dissection. There is mild atheromatous narrowing the proximal left subclavian artery. There is mucosal thickening within the sphenoid sinus. IMPRESSION: 1. No evidence of hemodynamically significant carotid stenosis 2. No evidence of vertebral artery stenosis 3. Unusual appearance of the proximal basilar artery. There is a small web versus marked focal tortuo sity. This finding is of doubtful acute clinical significance. ACT 112: Negative or not required by law. Electronically signed by: Nitesh Upton M.D. 04/05/2020 4:07 PM
--- NOTE | 2020-04-05 16:11 | CT Scan Report ---
CT ANGIOGRAM OF THE BRAIN CLINICAL HISTORY: Strokelike symptoms. COMPARISON STUDY: Unenhanced CT of the brain performed concurrently on 04/05/2020. TECHNIQUE: Following the IV administration of 116 cc of Optiray 320, CT angiogram of the brain was pe rformed from the skull base to the vertex. Images are reviewed in the axial, sagittal, and coronal pl anes. 3-D MIPS images are created and assessed. IV contrast was administered without complication. A dose lowering technique was utilized adhering to the principles of ALARA. FINDINGS: Brain parenchyma: There is age-related involutional change noting moderate to advanced subcortical an d periventricular microangiopathic disease. There is no hemorrhage, mass effect, or evidence of acute territorial ischemia by CT criteria. There is no evidence of enhancing mass lesion on the angiogram phase images. No extra-axial fluid collection is seen. Thomas-white matter differentiation is preserved . Ventricles, sulci, and cisterns: Prominent secondary to involutional change. CT angiogram of the brain: There is atherosclerotic calcification of the cavernous carotid arteries. The internal carotid arteries are widely patent, as are the anterior and middle cerebral arteries. Th e vertebrobasilar system and posterior cerebral arteries are widely patent. The vertebral arteries ar e codominant. There is tortuosity at the origin of the basilar artery with a possible with. There is mild focal dilatation of the basilar and the site which measures up to 5 mm. No definite aneurysm is identified. There is no high-grade stenosis or focal vessel cutoff identified throughout the intracra nial circulation. Dural sinuses: Clear as visualized. Orbits: The bony orbits are intact. The orbital contents are normal as visualized noting bilateral oc ular lens implants. Sinuses and mastoids: Mild mucosal thickening is noted in the sphenoid sinuses. There is trace mucosa l thickening in the right maxillary antrum. The remaining paranasal sinuses are clear. The mastoid ai r cells are well pneumatized. Calvarium: Unremarkable. IMPRESSION: 1. There is no hemorrhage, mass effect, or evidence of acute territorial ischemia by CT criteria noti ng angiographic phase technique. 2. Changes at the origin of the basilar artery as above. This is of doubtful acute significance. 3. Otherwise unremarkable CT angiogram of the brain. ACT 112: Negative or not required by law. Electronically signed by: Vimal Marquez M.D. 04/05/2020 4:10 PM
[2020-04-05] MEDS ORDERED: METOCLOPRAMIDE HCL INJ 5 MG/ML 2 ML VIAL IV ONE (16:13)
[2020-04-05] MEDS ORDERED: ASPIRIN CHEW 324 MG PO STA (16:13)
--- NOTE | 2020-04-05 16:36 | XRay Report ---
XR chest 1V portable HISTORY: 70 years-old Female weakness acute weakness COMPARISON: Chest and rib radiographs 07/30/2017 TECHNIQUE: Portable AP view of the chest FINDINGS: Calcified plaque of the thoracic aortic arch. Mild cardiomegaly. Mild chronic interstitial coarsening of the lung bases. There is no pneumothorax, large pleural effusion, overt pulmonary edema or airspa ce consolidation typical for pneumonia. Degenerative changes of the shoulders and spine. Mild sigmoid al thoracolumbar scoliosis. IMPRESSION: Cardiomegaly without acute process. ACT 112: Negative or not required by law. The above report was generated using voice recognition software. It may contain grammatical, syntax o r spelling errors. Electronically signed by: Karson Matamoros M.D. 04/05/2020 4:35 PM
[2020-04-05 16:38] LABS: Appearance Urine Clear (Clear); Bacteria Urine Automated 4+ (Negative); Bilirubin Urine Negative (Negative); Blood Urine Negative (Negative); Cast Urine Automated 0 /lpf (0-5); Color Urine Orange; Glucose Urine UA Negative (Negative); Ketones Urine Negative (Negative); Leukocyte Esterase Urine Trace (Negative); Nitrite Urine Positive (Negative); Protein Urine Negative (Negative); RBC Urine Automated 0-4 /hpf (0-4); Specific Gravity Urine 1.031 (1.000-1.030); Urobilinogen Urine Negative (Negative)
[2020-04-05] MEDS ORDERED: cefTRIAXone SODIUM 1,000 MG/50 ML BAG IV STA (16:58)
[2020-04-05] MEDS ORDERED: MAGNESIUM SULFATE / D5W 1 GM/100 ML BAG IV ONE (17:30)
--- NOTE | 2020-04-05 17:31 | History & Physical Report ---
Date of Service April 05, 2020 Assessment & Plan (1) Stroke-like symptoms: Symptoms currently resolved. NIH 0. ABCD 2 score 7 -high risk We will hold antihypertensives at this time. DAPT - aspirin 81 mg p.o. daily and clopidogrel 75 mg p.o. daily Continue simvastatin 40 mg p.o. every afternoon given previous LDL at goal. MRI brain without contrast PT/OT/speech Consult neurology (2) Vitamin D deficiency: Continue cholecalciferol 3000 units p.o. every morning (3) Vitamin B12 deficiency: Low normal despite B12 IM injections. Will add oral supplementation. (4) Diabetes mellitus: HbA1C 7.6 in February Hold metformin due to IV contrast given with CTA Usually takes Lantus 40 units SQ at bedtime Switch to Lantus 20 units twice daily with NovoLog a.m. 110-140, correction 20, carb ratio 7 (5) UTI (urinary tract infection): Symptomatic with urinary urgency although going on for the last month. Continue ceftriaxone 1 g IV pending follow up urine culture (6) Depression: Continue Lexapro 10 mg p.o. every morning (7) DVT prophylaxis: SCDs Admission and Anticipated Discharge Date Admission Date: 04/05/2020 History of Present Illness Chief Complaint: Stroke-like symptoms Primary Care Provider: KATARZYNA Sibley Cristiane Montenegro is a 70-year-old female who presents to the ER with stroke-like symptoms. Approximately 1:30-1:45pm onset, right upper extremity weakness, severe headache on left side, and word finding difficulty. She was taken to her primary care doctor who called for an ambulance to come to the ER. In the ER her symptoms were mostly resolved therefore no TPA recommended. Symptoms resolved in approximately 2 hours. At the time of admission she has no symptoms. She has never had a stroke before. Notable history of hyperlipidemia, hypertension, type 2 diabetes. She was also noted to have a possible UTI in the ER. She does allude to urinary urgency for the last month although denies fevers, chills, suprapubic or flank tenderness, dysuria, urinary frequency. Allergies Allergy/AdvReac Type Severity Reaction Status Date / Time No Known Allergies Allergy Verified 04/05/20 16:52 Home Medications Home Medications Medication Instructions Recorded Confirmed Type cyanocobalamin (vitamin B-12) 1,000 mcg IM MONTHLY ml 03/27/19 04/05/20 History 1,000 mcg/mL injection solution insulin glargine 100 unit/mL (3 40 units SQ HS 90 Days #36 ml 04/17/19 04/05/20 Rx mL) subcutaneous pen aspirin [Aspirin Low Dose] 81 mg PO QAM 04/05/20 04/05/20 History cholecalciferol (vitamin D3) 3,000 units PO QAM 04/05/20 04/05/20 History escitalopram oxalate [Lexapro] 10 mg PO QAM 04/05/20 04/05/20 History lisinopril 5 mg PO QAM 04/05/20 04/05/20 History metformin 1,000 mg PO BID 04/05/20 04/05/20 History metoprolol succinate 25 mg PO QAM 04/05/20 04/05/20 History multivitamin [Daily Multi-Vitamin] 1 tab PO QAM 04/05/20 04/05/20 History nitroglycerin 0.4 mg SL DIRECTED PRN 04/05/20 04/05/20 History simvastatin 40 mg PO QPM 04/05/20 04/05/20 History Past Med/Surg History Medical History Anemia Arteriosclerotic coronary artery disease Carotid artery plaque Carotid bruit Grief reaction Inflammatory polyps of colon Iron deficiency anemia Lyme disease Memory difficulty Osteopenia Tubular adenoma of colon Surgical History History of cataract surgery History of cholecystectomy History of coronary artery stent placement Cath stent 1 distal right coronary artery History of dental surgery History of gastric bypass History of hysterectomy Family History Family/Other Colorectal cancer Cousin Aunt Breast cancer Father Myocardial infarction Denies family history of Ovarian cancer Prostate cancer Social History Smoking Status: Former smoker Hx Alcohol Use: No Hx Substance Use: No Preferred Language: Greek Communication Ability: Effective Beliefs That Will Affect Care: None marital status: Current Living Situation: Spouse current occupational status: retired Feels Safe at Home: Yes caffeine: Yes during the past year weight has: remained stable Dental Care, Regularly: No Seatbelt Use: always Sunscreen Use: No Review of Systems Review of Systems: All systems reviewed & are unremarkable except as noted in HPI & below Physical Exam Constitutional: WD/WN, vitals as above Eyes: PERRL, conjunctivae normal, anicteric sclerae ENMT: external ear and nose normal, oropharynx normal Neck: trachea midline, no thyromegaly Respiratory: normal respiratory effort, lungs clear to auscultation Cardiovascular: Rate/Rhythm: regular rate and regular rhythm Heart Sounds: no murmur Vessels: no JVD Extremities: normal capillary refill; no calf tenderness and no pedal edema Gastrointestinal (Abdomen): normal bowel sounds, soft, nontender, no hepatosplenomegaly Musculoskeletal: no cyanosis or clubbing, extremities motor strength 5/5 Skin: no rashes, warm and dry Neurologic: CN's II-XI intact bilaterally, moves all extremities and awake; no focal motor deficits and not confused Speech / Cognition: normal speech Motor/Sensory: no tremor, no pronator drift and no sensory deficit Psychiatric: A+Ox3, euthymic affect Genitourinary: no CVA tenderness Lymphatic: no cervical or axillary lymphadenopathy Results & Data Results & [facility] ([facility]) Vital Signs (Past 12 Hours) Vital Signs Temp Pulse Pulse Resp BP BP Pulse Ox 04/05/20 17:25 65 18 157/73 H 98 04/05/20 16:07 62 17 172/81 H 96 04/05/20 16:01 64 18 167/76 H 96 04/05/20 15:31 64 18 126/85 96 04/05/20 15:22 97 04/05/20 15:14 36.5 C 67 20 174/67 H [address] head/brain wo con IMPRESSION: No acute intracranial findings CT ANGIOGRAM OF THE BRAIN IMPRESSION: 1. There is no hemorrhage, mass effect, or evidence of acute territorial ischemia by CT criteria noting angiographic phase technique. 2. Changes at the origin of the basilar artery as above. This is of doubtful acute significance. 3. Otherwise unremarkable CT angiogram of the brain. CT angio neck with con IMPRESSION: 1. No evidence of hemodynamically significant carotid stenosis 2. No evidence of vertebral artery stenosis 3. Unusual appearance of the proximal basilar artery. There is a small web versus marked focal tortuosity. This finding is of doubtful acute clinical significance. ECG Indication: other (Strokelike symptoms) Rate (beats per minute): 62 Rhythm: normal sinus Findings: no acute ischemic change Comparison ECG Date: from (August 22, 2017) Change: no significant change Code Status & VTE Plan Code Status Full VTE Prophylaxis Plan VTE Prophylaxis will be ordered: Yes Reason for no VTE drug order: Treatment not indicated PG Care Time/CCT Total # of Minutes Spent Total Time Spent with Patient: Total time spent is greater than 50% in coordination of care (as documented) at patient's floor/unit and/or counseling patient: Coding Level of Care Code 51492 OBS Care - Level 3 Diagnoses Stroke-like symptoms R29.90 Vitamin D deficiency E55.9 Vitamin B12 deficiency E53.8 Diabetes mellitus E11.9 UTI (urinary tract infection) N39.0 Depression F32.9 DVT prophylaxis Z29.9
[2020-04-05] MEDS ORDERED: ESCITALOPRAM OXALATE 10 MG TAB PO ONE (18:30)
[2020-04-05] MEDS ORDERED: GLUCAGON FOR INJ 1 MG VIAL SQ PRN (19:43)
[2020-04-05] MEDS ORDERED: ONDANSETRON INJ 2 MG/ML 2 ML VIAL IV PRN (19:43)
[2020-04-05] MEDS ORDERED: CARBOHYDRATES FOR HYPOGLYCEMIA PO PRN (19:43)
[2020-04-05] MEDS ORDERED: PHARMACIST DISCHARGE MED REC CONSULT PRN (19:43)
[2020-04-05] MEDS ORDERED: GLUCOSE 10 TABS/TUBE PO PRN (19:43)
[2020-04-05] MEDS ORDERED: GLUCOSE 40% GEL 15 GM TUBE PO PRN (19:43)
[2020-04-05] MEDS ORDERED: ALUMINUM/MAGNESIUM SUSP 30 ML UDC PO PRN (19:43)
[2020-04-05] MEDS ORDERED: POLYETHYLENE (MIRALAX) 17 GM PACK PO PRN (19:43)
[2020-04-05] MEDS ORDERED: ACETAMINOPHEN 325 MG TAB PO PRN (19:43)
[2020-04-05] MEDS ORDERED: DEXTROSE 50% 50 ML SYRINGE IV PRN (19:43)
[2020-04-05] MEDS ORDERED: CLOPIDOGREL BISULFATE 75 MG TAB PO ONE (20:00)
[2020-04-05] MEDS ORDERED: SIMVASTATIN 40 MG TAB PO SCH (21:00)
[2020-04-05] MEDS: INSULIN ASPART 100 UNITS/ML 3 ML PEN SC SCH (21:09)
[2020-04-05] MEDS: INSULIN GLARGINE SOLOSTAR 100 UNITS/ML 3 ML PEN SC SCH (21:10)
--- NOTE | 2020-04-06 06:05 | Electrocardiogram Report ---
Test Reason : Blood Pressure : / mmHG Vent. Rate : 062 BPM Atrial Rate : 062 BPM P-R Int : 162 ms QRS Dur : 098 ms QT Int : 438 ms P-R-T Axes : 025 006 034 degrees QTc Int : 444 ms Normal sinus rhythm Inferior infarct (cited on or before 20-JUN-1999) Cannot rule out Anterior infarct , age undetermined Abnormal ECG When compared with ECG of 22-AUG-2017 13:23, No significant change was found Confirmed by Harrison Spears ([id number]) on 04/06/2020 6:05:21 AM Referred By: Confirmed By:Harrison Spears
[2020-04-06 06:34] LABS: Basophils # (auto) 0.02 K/uL (0-0.2); Basophils % (auto) 0.3 %; Eosinophils # (auto) 0.16 K/uL (0-0.5); Eosinophils % (auto) 2.3 %; Hematocrit (blood only) 38.6 % (37-47); Hemoglobin 12.6 g/dL (12.0-16.0); Immature Granulocytes # (auto) 0.01 K/uL (0.00-0.02); Immature Granulocytes % (auto) 0.1 %; Lymphocytes # (auto) 1.61 K/uL (1.2-3.4); Lymphocytes % (auto) 23.5 %; Mean Corpuscular Hemoglobin 26.8 pg (25-34); Mean Corpuscular Hgb Conc 32.6 g/dL (32-36); Mean Platelet Volume 9.7 fL (7.4-10.4); Monocytes % (auto) 10.2 %; Neutrophils # (auto) 4.34 K/uL (1.4-6.5); Neutrophils % (auto) 63.6 %; Platelet Count 206 K/uL (130-400); RDW Coefficient of Variation 14.5 % (11.5-14.5); RDW Standard Deviation 43.3 fL (36.4-46.3); Red Blood Count 4.71 M/uL (4.2-5.4); White Blood Count 6.84 K/uL (4.8-10.8)
[2020-04-06 06:50] LABS: Estimated Average Glucose 169 mg/dl; Hemoglobin A1C 7.5 % (4.5-5.6)
[2020-04-06 06:57] LABS: BUN Creatinine Ratio 12.9 (10-20); Calcium 9.2 mg/dl (8.5-10.1); Creatinine Clr Calc Pharmacy 93.6 ml/min; Est GFR (African American) 112.3; Est GFR (Non-African American) 96.9; Potassium 3.8 mmol/L (3.5-5.1)
--- NOTE | 2020-04-06 07:49 | Magnetic Resonance Report ---
MRI OF THE BRAIN WITHOUT CONTRAST CLINICAL HISTORY: expressive dysphasia, RUE weakness COMPARISON STUDY: MRI the brain dated 08/22/2017, CT scan dated 04/05/2020 FINDINGS: Sagittal T1, axial diffusion, proton density and T2 weighted axial, coronal FLAIR, and axial T1-weigh alicia images were acquired. No intra or extra-axial mass lesions are visualized Axial diffusion-weighted images reveal no evidence of acute or subacute infarction. There is no evidence of ventricular dilatation. Proton density T2-weighted and FLAIR images reveal mild to moderate foci of increased T2 signal withi n the white matter, likely on a small vessel basis. There are no abnormal flow voids. There is sphenoid sinus mucosal thickening. IMPRESSION: 1. No acute intracranial findings 2. No evidence of intracranial mass in this noncontrast study 3. No evidence of acute or subacute infarction ACT 112: Negative or not required by law. Electronically signed by: Nitesh Upton M.D. 04/06/2020 7:47 AM
[2020-04-06] MEDS: INSULIN GLARGINE SOLOSTAR 100 UNITS/ML 3 ML PEN SC SCH (08:24)
[2020-04-06] MEDS: INSULIN ASPART 100 UNITS/ML 3 ML PEN SC SCH ×2 (08:35→12:40)
[2020-04-06] MEDS ORDERED: CYANOCOBALAMIN 500 MCG TABLET (VITAMIN B-12) PO SCH (09:00)
[2020-04-06] MEDS ORDERED: MULTIVITAMIN TAB PO SCH (09:00)
[2020-04-06] MEDS ORDERED: METOPROLOL SUCC 25MG EXT REL TAB PO SCH (09:00)
[2020-04-06] MEDS ORDERED: CLOPIDOGREL BISULFATE 75 MG TAB PO SCH (09:00)
[2020-04-06] MEDS ORDERED: lisinopriL 5 MG TAB PO SCH (09:00)
[2020-04-06] MEDS ORDERED: ESCITALOPRAM OXALATE 10 MG TAB PO SCH (09:00)
[2020-04-06] MEDS ORDERED: ASPIRIN 81 MG ECTAB PO SCH (09:00)
[2020-04-06] MEDS ORDERED: CHOLECALCIFEROL 1,000 UNITS 25 MCG TAB PO SCH (09:00)
--- NOTE | 2020-04-06 10:03 | Neurology Consultation ---
Date of Consultation April 06, 2020 Assessment & Plan (1) TIA (transient ischemic attack): Transient ischemic attack localizing to the left cerebral hemisphere, characterized by dysarthria, possible element of expressive aphasia, and right hemiparesis, face and arm, primarily arm. Symptoms resolved in about 1 hour. Negative neuro imaging evaluation and intact neurological examination this morning. Stroke/TIA risk factors for this patient include hypertension, hyperlipidemia, and diabetes mellitus. I would recommend adding clopidogrel 75 mg/day to her medication regimen. After 3 weeks, however, patient should discontinue daily low-dose aspirin and continue with clopidogrel monotherapy. Follow-up with results of echocardiogram. Consider obtaining a 30-day cardiac event monitor. No further immediate recommendations. History of Present Illness Reason for Consultation: Strokelike symptoms Requesting Physician: Nick Smallwood MD Attending Physician: Ajit Jhaveri DO History of Present Illness The patient is a 70-year-old female who presented to the emergency department yesterday with a chief complaint of slurred speech and right upper extremity weakness. Her symptoms resolved within about 1 hour, she was significantly improved by the time she was evaluated in the emergency department. She recalls having some difficulty with word finding and perhaps some weakness along the right side of her face as well. She was driving as a passenger in a motor vehicle at the time of symptom onset. Her then brought her to the emergency department for further assessment. She recalls having some mild headache and dizziness, no associated vision disturbance or vertigo. She does not recall having significant weakness of the right lower limb. Patient denies having any symptomatic recurrence overnight or this morning. She currently feels fine and denies any residual or lingering neurological symptoms. Past medical history notable for hypertension, diabetes mellitus, and hyperlipidemia. She is a former smoker although quit 20 years ago. Patient's blood pressure was moderately elevated yesterday, although appears improved today. She was not hypoglycemic at the time of presentation. Comprehensive neuro imaging has been completed including CT of the head, CT angiography of the head and neck, and follow-up brain MRI. No significant abnormalities identified on these test. No evidence of acute or subacute stroke. Imaging described in further detail below. Allergies Allergy/AdvReac Type Severity Reaction Status Date / Time No Known Allergies Allergy Verified 04/05/20 16:52 Home Medications Home Medications Medication Instructions Recorded Confirmed Type cyanocobalamin (vitamin B-12) 1,000 mcg IM MONTHLY ml 03/27/19 04/05/20 History 1,000 mcg/mL injection solution insulin glargine 100 unit/mL (3 40 units SQ HS 90 Days #36 ml 04/17/19 04/05/20 Rx mL) subcutaneous pen aspirin [Aspirin Low Dose] 81 mg PO QAM 04/05/20 04/05/20 History cholecalciferol (vitamin D3) 3,000 units PO QAM 04/05/20 04/05/20 History escitalopram oxalate [Lexapro] 10 mg PO QAM 04/05/20 04/05/20 History lisinopril 5 mg PO QAM 04/05/20 04/05/20 History metformin 1,000 mg PO BID 04/05/20 04/05/20 History metoprolol succinate 25 mg PO QAM 04/05/20 04/05/20 History multivitamin [Daily Multi-Vitamin] 1 tab PO QAM 04/05/20 04/05/20 History nitroglycerin 0.4 mg SL DIRECTED PRN 04/05/20 04/05/20 History simvastatin 40 mg PO QPM 04/05/20 04/05/20 History Patient History Medical History Anemia Arteriosclerotic coronary artery disease Carotid artery plaque Carotid bruit Grief reaction Inflammatory polyps of colon Iron deficiency anemia Lyme disease Memory difficulty Osteopenia Tubular adenoma of colon Surgical History History of cataract surgery History of cholecystectomy History of coronary artery stent placement Cath stent 1 distal right coronary artery History of dental surgery History of gastric bypass History of hysterectomy Family History Family/Other Colorectal cancer Cousin Aunt Breast cancer Father Myocardial infarction Denies family history of Ovarian cancer Prostate cancer Social History Smoking Status: Former smoker Hx Alcohol Use: No Hx Substance Use: No Preferred Language: [place]ian Communication Ability: Effective Beliefs That Will Affect Care: None marital status: Current Living Situation: Spouse current occupational status: retired Feels Safe at Home: Yes caffeine: Yes during the past year weight has: remained stable Dental Care, Regularly: No Seatbelt Use: always Sunscreen Use: No Review of Systems Constitutional: no fever and no chills Eyes: no blind spots and no diplopia Ear, Nose, Mouth, Throat: no ear pain and no hearing loss Respiratory: no cough and no dyspnea Cardiovascular: no chest pain and no palpitations Gastrointestinal: no nausea and no vomiting Genitourinary: no urinary incontinence Musculoskeletal: + back pain Integumentary: + lesions Granuloma annulare Neurologic: as per Subjective / HPI, + localized weakness and + abnormal speech Psychiatric: no depression and no anxiety Hematologic / Lymphatic: no easy bleeding and no easy bruising Exam (Neuro) Constitutional: well developed and well nourished; no acute distress Eyes: normal visual shrestha by confrontation, PERRL, normal accommodation and EOM intact bilaterally; no fundoscopic abnormality, no nystagmus and no papilledema Cardiovascular: Vessels: normal carotid upstroke; no carotid bruit Neurologic: Oriented to:: Person, Place and Time Memory: Short Term Intact and Remote Intact Attention: Span Intact and Concentration Intact Language: Naming Objects and Repeating Phrases Speech Fluency: negative Dysarthria Speech Aphasia: negative Aphasia Fund of Knowledge: Current Events, Past History and Vocabulary Cranial Nerves: Normal II (Visual shrestha full to confrontation, visual acuity normal), III, IV, (Pupils equal round reactive to light and accommodation, eye movements normal), V (Facial sensation intact), VII (There is no facial droop or weakness), VIII (Hearing intact), IX, X (Palate elevates to midline), XI (Shoulder shrug intact) and XII (Tongue protrudes to midline) Motor Strength: Normal Lower Extremities and Normal Upper Extremities; negative Pronator Drift Motor Tone: Normal Lower Extremities and Normal Upper Extremities Muscle Bulk/Involuntary Movements: No Involuntary Movements; negative Muscle Atrophy Sensation: Light Touch Intact, Pain/Temperature Intact, Vibration Intact and Proprioception Intact Coordination: Normal; negative Limited Balance, Dysdiadochokinesia, Finger-Nose Abnormal and Heel-Chavez Abnormal Deep Tendon Reflexes: Rt Triceps: 2+, Lt Triceps: 2+, Rt Biceps: 2+, Lt Biceps: 2+, Rt Brachioradialis: 2+, Lt Brachioradialis: 2+, Rt Patellar: 2+, Lt Patellar: 2+, Rt Ankle: 2+ and Lt Ankle: 2+ Special Tests: negative Babinski Present Gait: Normal Station and Gait Results & Data ([facility]) Vital Signs (Past 12 Hours) Vital Signs Temp Pulse Pulse Resp BP Pulse Ox 04/06/20 07:26 72 04/06/20 06:52 36.9 C 71 18 117/71 90 04/06/20 03:58 37.0 C 69 18 132/66 92 04/06/20 01:53 71 04/05/20 23:25 36.3 C L 72 20 157/73 H 90 04/05/20 22:20 67 Laboratory Results WBC 6.84, hemoglobin 12.6, hematocrit 38.6, platelet count 206, sodium 142, potassium 3.8, BUN 7, creatinine 0.53, glucose 89, hemoglobin A1c 7.5, calcium 9.2, triglycerides 209, cholesterol 113, LDL 36, VLDL 42, HDL [address] of the head negative for hemorrhage or acute process. CTA of the head reveals some tortuosity at the origin of the basilar artery. CTA of the neck negative for hemodynamically significant carotid or vertebral stenosis. Unusual appearance to the proximal basilar artery noted, possibly due to a small web or focal tortuosity. MRI of the brain negative for acute or subacute stroke. There is a mild to moderate degree of chronic small vessel ischemic change. I reviewed the images as well as the radiologist's interpretation of these tests. An electrocardiogram reveals a normal sinus rhythm, 62 bpm Coding Level of Care Code 61452 Initial In Care Lvl 3 Diagnoses TIA (transient ischemic attack) G45.9
[2020-04-06] MEDS ORDERED: STROKE PATIENT DISCHARGE STA (12:41)
--- NOTE | 2020-04-06 12:44 | Discharge Summary ---
Date of Service April 06, 2020 Admission HPI Per Admitting Provider Cristiane Montenegro is a 70-year-old female who presents to the ER with stroke-like symptoms. Approximately 1:30-1:45pm onset, right upper extremity weakness, severe headache on left side, and word finding difficulty. She was taken to her primary care doctor who called for an ambulance to come to the ER. In the ER her symptoms were mostly resolved therefore no TPA recommended. Symptoms resolved in approximately 2 hours. At the time of admission she has no symptoms. She has never had a stroke before. Notable history of hyperlipidemia, hypertension, type 2 diabetes. She was also noted to have a possible UTI in the ER. She does allude to urinary urgency for the last month although denies fevers, chills, suprapubic or flank tenderness, dysuria, urinary frequency. Principal Diagnosis Transient ischemic attack Discharge Exam Constitutional well developed, + obese and comfortable; no acute distress Eyes PERRL, conjunctivae normal, anicteric sclerae ENMT external ear and nose normal, oropharynx normal Neck trachea midline, no thyromegaly Respiratory normal respiratory effort, lungs clear to auscultation Cardiovascular RRR, no murmur, no edema Gastrointestinal (Abdomen) normal bowel sounds, soft, nontender, no hepatosplenomegaly Musculoskeletal no cyanosis or clubbing, extremities motor strength 5/5 Skin no rashes, warm and dry Neurologic patellar DTR's 2+ bilat, sensation intact and PERRL, EOMI, accommodation nl, no face palsy, no dysarthria Psychiatric A+Ox3, euthymic affect Lymphatic no cervical or axillary lymphadenopathy Discharge Data Allergies Allergy/AdvReac Type Severity Reaction Status Date / Time No Known Allergies Allergy Verified 04/05/20 16:52 Consultations 04/05/20 16:35 ED Decision to Admit Stat 04/05/20 19:43 Consult Case Management - Discharge Planning Routine Consult Neurology Routine Ordered Studies 04/05/20 15:17 CT angio head w con Stat CT angio neck with con Stat CT head/brain wo con Stat 04/05/20 19:43 MR brain wo con Routine Hospital Course (1) Stroke-like symptoms: Symptoms currently resolved. NIH 0. MRI brain did NOT show any evidence of acute stroke evaluated by Dr. Mike, neurology, appreciate recommendations, will need to provide secondary stroke prevention treat with Plavix 75mg and aspirin for 21 days, after that time stop aspirin and only use Plavix will continue Zocor as LDL is at goal increase Lisinopril to 10mg for better blood pressure goal, can be titrated up as outpatient goal is < 140/90 HbA1c not quite at goal at 7.5%, work with PCP to improve a little more, goal would be 7.0% may be able to increase Lantus as long as there are no hypoglycemic episodes will order 30 day monitor to wear at home to look for paroxysmal atrial fibri llation will discharge to home, she is feeling well, no neurological deficits (2) Vitamin D deficiency: Continue cholecalciferol 3000 units p.o. every morning (3) Vitamin B12 deficiency: Low normal despite B12 IM injections. Will add oral supplementation. (4) Diabetes mellitus: HbA1C 7.6 in February, now 7.5% Usually takes Lantus 40 units SQ at bedtime on discharge will continue Metformin and Lantus 40 units HS could consider increasing Lantus slightly, or splitting dose, try to follow lower carb diet (5) UTI (urinary tract infection): Symptomatic with urinary urgency although going on for the last month. treated with ceftriaxone 1 g IV urine culture grew out E coli, coleman sensitive discharged on Keflex 500mg BID for 5 more days (6) Depression: Continue Lexapro 10 mg p.o. every morning Total Time Total Time Spent Total Time Spent (In Minutes): 32 minutes Total Time Includes: Examination of the Patient, Discharge Planning, Medication Reconciliation and Communication With Other Providers (Dr. Mike) Discharge Plan Discharge Items Patient Disposition: Home - Self-Care Reason For Visit: STROKE LIKE SYMPTOMS,UTI Discharge Diagnosis: Transient ischemic attack UTI, gram negative bacilli Condition on Discharge: Good Goals: medical management of risk factors for stroke Holter monitor for 30 days to assess for atrial fibrillation complete course of Keflex for UTI Activity: Resume your previous activity Exercise/Sports: Gradually increase as tolerated Driving/Machine Use: Resume 3 days after discharge Weightbearing: Full weightbearing Non-emergency contact: Primary Care Provider Call non-emergency contact if: you have any medication questions and your symptoms worsen Follow-up/Referrals: Eli Gavin CRNP [Primary Care Provider] - 04/13/20 11:30 am (we have scheduled a follow up appt with Dr Pollack on Apr 13 @ 1130. Please arrive 15 minutes prior to appt time. If this appt does not fit your schedule please call [phone] to reschedule.) Brandon Mike MD [Physician] - 06/01/20 3:00 pm (You have an appt with Dr Mike on SaturdayJun 01 at 3pm. Please arrive 15 minutes prior to your appt time. [address] [phone]) Diet: Carb Consistent or DM2 and Heart Healthy Addtl Attending Provider Instructions: Medications: - PLAVIX: 75mg daily, take with aspirin for 21 days and then stop the aspirin and only take Plavix - LISINOPRIL: increase to 10mg daily for better blood pressure control - KEFLEX: 500mg twice a day for 5 more days to treat UTI STOP ASPIRIN AFTER 21 DAYS Transient ischemic attack: symptoms of stroke that lasted one hour, MRI brain without any clear signs of stroke having a TIA increases the risk of having stroke in the future we will work to minimize your future risk by treating blood pressure, diabetes, cholesterol will get a Holter monitor to try to identify atrial fibrillation as risk factor Plavix 75mg daily for antiplatelet therapy continue aspirin for 21 days and then stop aspirin, use only Plavix continue Zocor will increase Lisinopril 10mg daily Hb A1c is 7.5%, could be better controlled, continue Lantus and metformin could consider increasing Lantus slightly if you don't have issues with hypoglycemia try to follow a lower carbohydrate diet follow up with primary care provider UTI, culture growing gram negative bacilli past cultures have grown sensitive E coli will complete 5 more days of Keflex, start tomorrow morning Risk Factors for Stroke: You can reduce your chances of stroke by working with your medical provider to adopt a healthy lifestyle. Some specific ways to lower your chance of stroke are: * If you are a smoker, now is the time to stop smoking cigarettes * If you are diabetic, improve the control of your blood sugars * Avoid excessive amounts of alcohol * Control high blood pressure * Lose weight if you are overweight * Be sure to lead an active lifestyle * Eat a healthy diet low in salt, cholesterol and fat You should know about other risk factors for stroke that you are unable to control. These include: * Age 55 years or older * Male gender * Certain racial groups: , or / * Family History of Stroke, Mini stroke or Heart Attack * Sickle Cell Disease Follow Up: It is important for you to keep your follow up appointments with your medical provider. Who to Call and When: Medical Emergencies: Call 911 immediately if you experience any of the following warning signs and symptoms of Stroke: * Sudden numbness or weakness of the face, arm or leg, especially on one side of the body * Sudden confusion, trouble speaking or understanding * Sudden trouble seeing in one or both eyes * Sudden trouble walking, dizziness, loss of balance or coordination * Sudden severe headache with no cause Do not delay calling 911 if you experience any warning signs or symptoms of a stroke. Delay in seeking medical attention may affect what treatments can be given to you. . Pending Studies at Discharge: Yes Studies:: echocardiogram Stand-Alone Forms: [facility], Smoking Cessation Medications and DC Order Prescriptions: New clopidogrel 75 mg Tablet 75 mg PO QAM 30 Days Qty: 30 RF: 3 lisinopril 10 mg tablet 10 mg PO DAILY Qty: 30 RF: 3 cephalexin [Keflex] 500 mg capsule 500 mg PO BID 5 Days Qty: 10 RF: 0 Continued Lantus Solostar U-100 Insulin 100 unit/mL (3 mL) insulin pen 40 units SQ HS 90 Days Qty: 36 RF: 5 cyanocobalamin (vitamin B-12) 1,000 mcg/mL solution 1,000 mcg IM MONTHLY RF: 0 aspirin [Aspirin Low Dose] 81 mg Tablet,Delayed Release (Dr/Ec) 81 mg PO QAM RF: 0 multivitamin [Daily Multi-Vitamin] tablet 1 tab PO QAM RF: 0 simvastatin 40 mg tablet 40 mg PO QPM RF: 0 metformin 1,000 mg tablet 1,000 mg PO BID RF: 0 nitroglycerin 0.4 mg tablet, sublingual 0.4 mg SL DIRECTED PRN (Reason: Chest Pain) RF: 0 metoprolol succinate 25 mg tablet extended release 24 hr 25 mg PO QAM RF: 0 escitalopram oxalate [Lexapro] 10 mg tablet 10 mg PO QAM RF: 0 cholecalciferol (vitamin D3) 3,000 unit tablet 3,000 units PO QAM RF: 0 Discontinued lisinopril 5 mg tablet 5 mg PO QAM RF: 0 Discharge Orders: Discharge Order (Routine); Ordered 04/06/20 Ordered By: Ajit John/Other Patient Handouts: Managing Type 2 Diabetes Admission Data Admit Date/Time: 04/05/20 17:41 Attending Provider: Ajit Jhaveri Admit Provider: Nick Smallwood Primary Care Provider: Eli Gavin Other Providers: Nick Smallwood ; Brandon Mike Other Interventions: Discharge Summary Assessment (RN) Last Done: 04/06/20 13:44 Coding Level of Care Code 72664 OBS Care - Discharge Diagnoses Stroke-like symptoms R29.90 Vitamin D deficiency E55.9 Vitamin B12 deficiency E53.8 Diabetes mellitus E11.9 UTI (urinary tract infection) N39.0 Depression F32.9
[2020-04-06] MEDS ORDERED: cefTRIAXone SODIUM 2,000 MG in DEXTROSE 5% 50 ML IV ONE (13:00)
--- NOTE | 2020-04-06 13:42 | Pharmacy Report ---
Pharmacist Stroke Counseling - Date of Service April 06, 2020 - Scope: Pharmacy has been consulted to provide medication discharge counseling for this patient admitted with [ischemic stroke] [hemorrhagic stroke] [transient ischemic attack] as per the Pharmacist Discharge Counseling for Stroke Patients Pro tocol. - Medications on Discharge: Home Medications Medication Instructions Recorded Confirmed cyanocobalamin (vitamin B-12) 1,000 mcg IM MONTHLY ml 03/27/19 04/05/20 1,000 mcg/mL injection solution aspirin [Aspirin Low Dose] 81 mg PO QAM 04/05/20 04/05/20 cholecalciferol (vitamin D3) 3,000 units PO QAM 04/05/20 04/05/20 escitalopram oxalate [Lexapro] 10 mg PO QAM 04/05/20 04/05/20 lisinopril 5 mg PO QAM 04/05/20 04/05/20 metformin 1,000 mg PO BID 04/05/20 04/05/20 metoprolol succinate 25 mg PO QAM 04/05/20 04/05/20 multivitamin [Daily Multi-Vitamin] 1 tab PO QAM 04/05/20 04/05/20 nitroglycerin 0.4 mg SL DIRECTED PRN 04/05/20 04/05/20 simvastatin 40 mg PO QPM 04/05/20 04/05/20 Medication Instructions Recorded insulin glargine 100 unit/mL (3 40 units SQ HS 90 Days #36 ml 04/17/19 mL) subcutaneous pen cephalexin [Keflex] 500 mg PO BID 5 Days #10 cap 04/06/20 clopidogrel 75 mg PO QAM 30 Days #30 tab 04/06/20 lisinopril 10 mg PO DAILY #30 tab 04/06/20 - Action: The above medications, specifically ones for stroke treatment/prophylaxis, have been reviewed in detail with the patient and/or patient off premise service representative(s) prior to discharge. This includes indication, common adverse reactions, drug interactions, and medication administration. Medication counseling has been employed using the teach-back method to ensure understanding. - Outcome: The patient and/or patient off premise service representative(s) have demonstrated understanding of the medications. Additional comments: Reviewed new medications with patient over the phone. Talked about plan for continuation of plavix/aspirin for 3 weeks, then continuation of plavix alone. Patient aware to monitor for any increase in bruising/bleeding. Noted dose increase for her lisinopril. No questions/concerns from patient during interview. Thank you for allowing pharmacy to be involved in the care of this patient. Please call [phone] with any additional questions
--- NOTE | 2020-04-06 15:07 | XCELERA ---
[id number]
== END 2020-04-06 15:42 | disposition home or self-care (01) ==
LOC: 2N 15:05 → ED 15:05 → SUATTDRO 17:41 → 2N 19:04 → 2W 21:11

== ENCOUNTER 2020-08-12 17:14 | Observation (INO) ==
--- NOTE | 2020-08-12 17:35 | Emergency Department Note ---
Impression & Plan TIA (transient ischemic attack), Hypertension, Vomiting ED Provider Note NAME: RALPH AGOSTO AGE: 70 SEX: F : 1950 ARRIVES VIA: Walk-In INFORMANT: Patient ED PROVIDER(S): Andrea Benavides DO CHIEF COMPLAINT: Right hand weakness trouble talking and confusion HPI: Patient is a 70-year-old female who presents the ER for symptoms which started around 12:00. She notes that at that point she noticed right hand weakness. Associated with that she has been having trouble with her tongue and talking. She notes she cannot get out what she wants to say. Headache started after that. She has been having some vomiting. She denies any chest pain or shortness of breath. Denies any belly pain, nausea, vomiting or diarrhea. No dysuria, urgency, or frequency. She admits to taking Plavix. No other exacerbating or remitting factors. ROS: See above HPI for pertinent positives & negatives. A total of 10 systems reviewed and were otherwise negative. PAST MEDICAL HISTORY:See Below PAST SURGICAL HISTORY:See Below FAMILY HISTORY:See Below SOCIAL HISTORY:See Below HOME MEDICATIONS:See Below ALLERGIES:See Below VITALS:See Below PHYSICAL EXAMINATION: GENERAL: Sitting up in bed, alert, chronically ill-appearing, intermittently dry heaving EYE EXAM: normal conjunctiva. PERRL and EOM's intact. OROPHARYNX: mucous membranes are moist NECK: supple, no nuchal rigidity, no adenopathy, non-tender LUNGS: Clear to auscultation. Normal chest wall mechanics HEART: no murmurs, S1 normal and S2 normal ABDOMEN: abdomen soft, non-tender, normo-active bowel sounds, no masses, no rebound or guarding. BACK: Back is symmetrical on inspection and there is no deformity, no midline tenderness, no CVA tenderness. SKIN: no rashes and no bruising UPPER EXTREMITIES: upper extremities are grossly normal. LOWER EXTREMITIES: No pitting edema. NEURO EXAM: Normal sensorium, cranial nerves II-XII intact with exception of a mild right-sided facial droop, normal speech with word finding, no weakness of arms, no weakness of legs. No drift.Gross sensation intact. MEDICAL DECISION MAKING: Patient is a 70-year-old female who presents the ER for right hand weakness and she was out of the window for TPA due to the extended period of time that she waited. Labs showed no significant leukocytosis or anemia. INR unremarkable. BMP with slight elevation of glucose. Magnesium was low at 1.7. LFTs troponin were unremarkable. CT as well as CT angio of the head and neck were unremarkable. Covid was negative. Case was discussed with Dr. Garcia from [facility]. She notes the patient is out of the TPA window. Would allow blood pressures to be between 180-220. Patient was given IV Zofran fluids and a dose of morphine for the headache. Pressures did come down to 180s. She was updated bedside. Discussed with hospitalist for further evaluation. Triage Nursing notes reviewed. Prior medical records reviewed Vital Signs: reviewed and remarkable for HTN and tachy Differential diagnosis: Differential Diagnosis includes but is not limited to ischemic Stroke, hemorrha gic stroke, bells palsy, mass, neoplasm, migraine headache, seizure, subarachnoid hemorrhage, TIA, and transient global amnesia. ER treatment provided: See below Diagnostics interpreted by me: ECG: Sinus tachycardia rate of 109 Normal axis No PVCs Poor baseline Nonspecific ST wave changes in the inferior and lateral leads Cardiac Monitoring: An order was placed for continuous cardiac monitoring. The monitor shows a rate of 101 with sinus rhythm. Laboratory studies: As stated above and show below. Imaging studies: CT angio of the head and neck as well as noncontrast of the head showed no acute pathology Consultation(s): Discussed with Dr. Garcia from [facility] as discussed above Discussed the hospitalist for further evaluation ED COURSE: Procedures: none Critical Care: None Past Med/Surg History Medical History (Updated 08/12/20 @ 22:27 by Andrea Benavides DO) Anemia Arteriosclerotic coronary artery disease Carotid artery plaque Carotid bruit Grief reaction Headache Inflammatory polyps of colon Iron deficiency anemia Lyme disease Memory difficulty Nausea Osteopenia Tubular adenoma of colon Surgical History History of cataract surgery History of cholecystectomy History of coronary artery stent placement Cath stent 1 distal right coronary artery History of dental surgery History of gastric bypass History of hysterectomy Family History Family/Other Colorectal cancer Cousin Aunt Breast cancer Father Myocardial infarction Denies family history of Ovarian cancer Prostate cancer Social History Smoking Status: Former smoker Hx Alcohol Use: No Hx Substance Use: No Preferred Language: Andorran Communication Ability: Effective Beliefs That Will Affect Care: None marital status: Current Living Situation: Spouse current occupational status: retired Feels Safe at Home: Yes caffeine: Yes during the past year weight has: remained stable Dental Care, Regularly: No Seatbelt Use: always Sunscreen Use: No Assistive Devices: Denture - Upper and Denture - Lower Allergies Allergies Allergy/AdvReac Type Severity Reaction Status Date / Time No Known Allergies Allergy Verified 08/12/20 19:08 Home Meds Home Medications Medication Instructions Recorded Confirmed cyanocobalamin (vitamin B-12) 1,000 mcg IM MONTHLY ml 03/27/19 08/12/20 1,000 mcg/mL injection solution cholecalciferol (vitamin D3) 3,000 units PO QAM 04/05/20 08/12/20 metoprolol succinate 25 mg PO QAM 04/05/20 08/12/20 multivitamin [Daily Multi-Vitamin] 1 tab PO QAM 04/05/20 08/12/20 nitroglycerin 0.4 mg SL DIRECTED PRN 04/05/20 08/12/20 simvastatin 40 mg PO QPM 04/05/20 08/12/20 acetaminophen [Tylenol Extra 1,000 mg PO Q6H PRN 08/10/20 08/12/20 Strength] lisinopril 10 mg PO QAM 08/10/20 08/12/20 Previous Rx's Medication Instructions Recorded clopidogrel 75 mg tablet 75 mg PO QAM #90 tab 04/13/20 metformin 1,000 mg tablet 1,000 mg PO BID #180 tab 04/25/20 insulin glargine 100 unit/mL (3 45 unit SQ HS 90 Days #40.5 ml 06/09/20 mL) subcutaneous pen Results & Data (ED) Vital Signs Vital Signs - 24 hr 08/12/20 17:19 08/12/20 18:00 08/12/20 18:25 Pulse Rate 123 H Pulse Rate [Right Finger] 100 H Respiratory Rate 18 14 Respiratory Effort / Characteristics Non-Labored Respiratory Depth Normal Respiratory Pattern Regular Blood Pressure 222/104 H Blood Pressure [Right Arm] 201/118 H Blood Pressure Mean 143 Blood Pressure Mean [Right Arm] 145 Pulse Oximetry 94 88 L 95 Oxygen Delivery Method Room Air Room Air Nasal Cannula Oxygen Flow Rate 2 Sepsis Recent Fever Within 48 Hours No Sepsis New/Unexplained Change in Mental Status Yes Sepsis Action Taken by Nursing Physician Notified 08/12/20 18:34 08/12/20 18:46 Pulse Rate Pulse Rate [Right Finger] 95 H 96 H Respiratory Rate 19 14 Respiratory Effort / Characteristics Non-Labored Respiratory Depth Normal Respiratory Pattern Blood Pressure Blood Pressure [Right Arm] 203/104 H 196/97 H Blood Pressure Mean Blood Pressure Mean [Right Arm] 137 130 Pulse Oximetry 99 98 Oxygen Delivery Method Nasal Cannula Nasal Cannula Oxygen Flow Rate 2 2 Sepsis Recent Fever Within 48 Hours Sepsis New/Unexplained Change in Mental Status Sepsis Action Taken by Nursing Laboratory Data Result diagrams: 08/12/20 17:33 08/12/20 17:33 Lab Results 08/12/20 08/12/20 08/12/20 Range/Units 17:33 17:33 17:33 WBC 10.00 (4.8-10.8) K/uL RBC 5.12 (4.2-5.4) M/uL Hgb 13.5 (12.0-16.0) g/dL Hct 41.6 (37-47) % MCV 81.3 (80-100) fL MCH 26.4 (25-34) pg MCHC 32.5 (32-36) g/dL RDW Std Deviation 42.8 (36.4-46.3) fL RDW Coeff of Chris 14.6 H (11.5-14.5) % Plt Count 258 (130-400) K/uL MPV 10.2 (7.4-10.4) fL Immature Gran % (Auto) 0.4 % Neut % (Auto) 67.8 % Lymph % (Auto) 23.0 % [place] % (Auto) 7.0 % Eos % (Auto) 1.6 % Baso % (Auto) 0.2 % Neut # (Auto) 6.78 H (1.4-6.5) K/uL Lymph # (Auto) 2.30 (1.2-3.4) K/uL [place] # (Auto) 0.70 H (0.11-0.59) K/uL Eos # (Auto) 0.16 (0-0.5) K/uL Baso # (Auto) 0.02 (0-0.2) K/uL Immature Gran # (Auto) 0.04 H (0.00-0.02) K/uL PT 10.3 (9.0-12.0) Seconds INR 1.0 (0.9-1.1) APTT 24.8 (21.0-31.0) Seconds PTT Ratio 0.9 Sodium (136-145) mmol/L Potassium (3.5-5.1) mmol/L Chloride (98-107) mmol/L Carbon Dioxide (21-32) mmol/L Anion Gap (3-11) BUN (7-18) mg/dl Creatinine (0.6-1.2) mg/dl Est Cr Clr Drug Dosing ml/min Est GFR ( Amer) Est GFR (Non-Af Amer) BUN/Creatinine Ratio (10-20) Glucose (70-99) mg/dl POC Glucose (70-99) mg/dl Calcium (8.5-10.1) mg/dl Magnesium (1.8-2.4) mg/dl Total Bilirubin (0.2-1) mg/dl AST (15-37) U/L ALT (12-78) U/L Alkaline Phosphatase (45-117) U/L Troponin I (0-0.045) ng/ml Total Protein (6.4-8.2) gm/dl Albumin (3.4-5.0) gm/dl Globulin (2.5-4.0) gm/dl Albumin/Globulin Ratio (0.9-2) COVID-19 Eval Order SARS-CoV-2, RNA, NAAT (NEGATIVE) Blood Type A Positive Antibody Screen NEGATIVE 08/12/20 08/12/20 08/12/20 Range/Units 17:33 17:52 17:56 WBC (4.8-10.8) K/uL RBC (4.2-5.4) M/uL Hgb (12.0-16.0) g/dL Hct (37-47) % MCV (80-100) fL MCH (25-34) pg MCHC (32-36) g/dL RDW Std Deviation (36.4-46.3) fL RDW Coeff of Chris (11.5-14.5) % Plt Count (130-400) K/uL MPV (7.4-10.4) fL Immature Gran % (Auto) % Neut % (Auto) % Lymph % (Auto) % [place] % (Auto) % Eos % (Auto) % Baso % (Auto) % Neut # (Auto) (1.4-6.5) K/uL Lymph # (Auto) (1.2-3.4) K/uL [place] # (Auto) (0.11-0.59) K/uL Eos # (Auto) (0-0.5) K/uL Baso # (Auto) (0-0.2) K/uL Immature Gran # (Auto) (0.00-0.02) K/uL PT (9.0-12.0) Seconds INR (0.9-1.1) APTT (21.0-31.0) Seconds PTT Ratio Sodium 137 (136-145) mmol/L Potassium 4.2 (3.5-5.1) mmol/L Chloride 102 (98-107) mmol/L Carbon Dioxide 26 (21-32) mmol/L Anion Gap 9.0 (3-11) BUN 14 (7-18) mg/dl Creatinine 0.65 (0.6-1.2) mg/dl Est Cr Clr Drug Dosing 75.4 ml/min Est GFR ( Amer) 105.0 Est GFR (Non-Af Amer) 90.6 BUN/Creatinine Ratio 21.7 H (10-20) Glucose 126 H (70-99) mg/dl POC Glucose 143 H (70-99) mg/dl Calcium 9.2 (8.5-10.1) mg/dl Magnesium 1.7 L (1.8-2.4) mg/dl Total Bilirubin 0.6 (0.2-1) mg/dl AST 8 L (15-37) U/L ALT 18 (12-78) U/L Alkaline Phosphatase 56 (45-117) U/L Troponin I < 0.015 (0-0.045) ng/ml Total Protein 8.3 H (6.4-8.2) gm/dl Albumin 4.1 (3.4-5.0) gm/dl Globulin 4.2 H (2.5-4.0) gm/dl Albumin/Globulin Ratio 1.0 (0.9-2) COVID-19 Eval Order Covid19 IDNow Pending sale to [facility] SARS-CoV-2, RNA, NAAT (NEGATIVE) Blood Type Antibody Screen 08/12/20 Range/Units 17:56 WBC (4.8-10.8) K/uL RBC (4.2-5.4) M/uL Hgb (12.0-16.0) g/dL Hct (37-47) % MCV (80-100) fL MCH (25-34) pg MCHC (32-36) g/dL RDW Std Deviation (36.4-46.3) fL RDW Coeff of Chris (11.5-14.5) % Plt Count (130-400) K/uL MPV (7.4-10.4) fL Immature Gran % (Auto) % Neut % (Auto) % Lymph % (Auto) % [place] % (Auto) % Eos % (Auto) % Baso % (Auto) % Neut # (Auto) (1.4-6.5) K/uL Lymph # (Auto) (1.2-3.4) K/uL [place] # (Auto) (0.11-0.59) K/uL Eos # (Auto) (0-0.5) K/uL Baso # (Auto) (0-0.2) K/uL Immature Gran # (Auto) (0.00-0.02) K/uL PT (9.0-12.0) Seconds INR (0.9-1.1) APTT (21.0-31.0) Seconds PTT Ratio Sodium (136-145) mmol/L Potassium (3.5-5.1) mmol/L Chloride (98-107) mmol/L Carbon Dioxide (21-32) mmol/L Anion Gap (3-11) BUN (7-18) mg/dl Creatinine (0.6-1.2) mg/dl Est Cr Clr Drug Dosing ml/min Est GFR ( Amer) Est GFR (Non-Af Amer) BUN/Creatinine Ratio (10-20) Glucose (70-99) mg/dl POC Glucose (70-99) mg/dl Calcium (8.5-10.1) mg/dl Magnesium (1.8-2.4) mg/dl Total Bilirubin (0.2-1) mg/dl AST (15-37) U/L ALT (12-78) U/L Alkaline Phosphatase (45-117) U/L Troponin I (0-0.045) ng/ml Total Protein (6.4-8.2) gm/dl Albumin (3.4-5.0) gm/dl Globulin (2.5-4.0) gm/dl Albumin/Globulin Ratio (0.9-2) COVID-19 Eval Order SARS-CoV-2, RNA, NAAT NEGATIVE (NEGATIVE) Blood Type Antibody Screen Administered Medications Discontinued Medications Sodium Chloride (Nss 1000ml) 500 mls @ 999 mls/hr IV .Q31M ONE Stop: 08/12/20 18:41 Last Infusion: 08/12/20 18:51 Dose: 0 mls/hr Documented by: [id number] Admin: 08/12/20 18:25 Dose: 999 mls/hr Documented by: [id number] Promethazine HCl 12.5 mg/ (Sodium Chloride) 50.5 mls @ 202 mls/hr IV NOW STA Stop: 08/12/20 19:33 Last Infusion: 08/12/20 20:12 Dose: 0 mls/hr Documented by: [id number] Admin: 08/12/20 19:42 Dose: 202 mls/hr Documented by: [id number] Ioversol (Optiray 320 125ml) 116 ml IV ONCE ONE Stop: 08/12/20 17:42 Last Admin: 08/12/20 17:43 Dose: 116 ml Documented by: [id number] Morphine Sulfate (Morphine Sulfate 4 Mg/Ml 1 Ml Carp\Vial) 4 mg IV NOW STA Stop: 08/12/20 18:13 Last Admin: 08/12/20 18:25 Dose: 4 mg Documented by: [id number] Ondansetron HCl (Ondansetron Inj 2 Mg/Ml 2 Ml Vial) Confirm Administered Dose 4 mg .ROUTE .STK-MED ONE Stop: 08/12/20 18:02 Last Admin: 08/12/20 18:05 Dose: 4 mg Documented by: [id number] Ondansetron HCl (Ondansetron Inj 2 Mg/Ml 2 Ml Vial) 4 mg IV NOW STA Stop: 08/12/20 18:38 Last Admin: 08/12/20 18:42 Dose: 4 mg Documented by: [id number] Discharge Plan Visit Data Chief Complaint: Stroke/CVA Symptoms Stated Complaint: STROKE, ED Provider: Andrea Benavides Discharge Problem: TIA (transient ischemic attack), Hypertension, Vomiting Patient Disposition: Admitted As Inpatient Discharge Instructions Interventions: ED Discharge Assessment Last Done: 08/12/20 20:21 Discharge Problem: Hypertension Qualifiers: Hypertension type: unspecified Qualified Code(s): I10 - Essential (primary) hypertension Vomiting Qualifiers: Vomiting type: unspecified Vomiting Intractability: unspecified Nausea presence: unspecified Qualified Code(s): R11.10 - Vomiting, unspecified
[2020-08-12] MEDS ORDERED: OPTIRAY 320 125ml IV ONE (17:41)
[2020-08-12 17:45] LABS: Basophils # (auto) 0.02 K/uL (0-0.2); Basophils % (auto) 0.2 %; Eosinophils # (auto) 0.16 K/uL (0-0.5); Eosinophils % (auto) 1.6 %; Hematocrit (blood only) 41.6 % (37-47); Hemoglobin 13.5 g/dL (12.0-16.0); Immature Granulocytes # (auto) 0.04 K/uL (0.00-0.02); Immature Granulocytes % (auto) 0.4 %; Mean Corpuscular Hemoglobin 26.4 pg (25-34); Mean Corpuscular Hgb Conc 32.5 g/dL (32-36); Mean Corpuscular Volume 81.3 fL (80-100); Mean Platelet Volume 10.2 fL (7.4-10.4); Neutrophils # (auto) 6.78 K/uL (1.4-6.5); Neutrophils % (auto) 67.8 %; Platelet Count 258 K/uL (130-400); RDW Coefficient of Variation 14.6 % (11.5-14.5); RDW Standard Deviation 42.8 fL (36.4-46.3); Red Blood Count 5.12 M/uL (4.2-5.4)
--- NOTE | 2020-08-12 17:51 | CT Scan Report ---
CT head/brain wo con CLINICAL HISTORY: Stroke Like Symptoms COMPARISON STUDY: CT scan dated 08/10/2020 TECHNIQUE: Axial CT of the brain is performed from the vertex to the skull base. IV contrast was not administered for this examination. A dose lowering technique was utilized adhering to the principles of ALARA. CT DOSE: FINDINGS: No intra or extra-axial mass lesions are visualized. There is no CT evidence of acute cortical infarc tion. There is no evidence of midline shift. There is no acute hemorrhage. No calvarial fractures ar e visualized. There are moderate white matter hypodensities likely on a small vessel basis. There is no evidence of pathologic ventricular dilatation. There is no evidence of acute sinusitis IMPRESSION: No acute intracranial findings ACT 112: Negative or not required by law. Electronically signed by: Nitesh Upton M.D. 08/12/2020 5:50 PM
[2020-08-12 18:01] LABS: Partial Thromboplastin Ratio 0.9; Partial Thromboplastin Time 24.8 Seconds (21.0-31.0); Prothrombin Time 10.3 Seconds (9.0-12.0)
[2020-08-12] MEDS ORDERED: ONDANSETRON INJ 2 MG/ML 2 ML VIAL ONE (18:01)
--- NOTE | 2020-08-12 18:01 | CT Scan Report ---
CT angio neck with con CLINICAL HISTORY: Stroke Like Symptoms COMPARISON STUDY: 04/05/2020 TECHNIQUE: CT angiography was performed from the aortic arch to the skull base. MIP imaging was perfo rmed. The patient was scanned in a dynamic helical fashion during intravenous administration of 116 c c of Optiray 320. A dose lowering technique was utilized adhering to the principles of ALARA. CT DOSE: 1458.95 mGy.cm Technique: CT angiogram of the carotid and vertebral arteries was obtained using intravenous contrast and 3-D reconstruction. NASCET criteria was utilized. Findings: Visualized portions lung apices reveal mild interlobular septal thickening and multiple scattered sub pleural right apical subcentimeter nodules likely infectious/inflammatory. The right carotid revealed no evidence of aneurysm and no evidence of dissection. There is no evidenc e of hemodynamic significant stenosis. The left carotid revealed no evidence of hemodynamic significant stenosis. There is no evidence of an eurysm. There is no evidence of dissection. Calcific plaque is visualized at the left carotid bifurca tion without evidence of significant luminal narrowing. There is no evidence of hemodynamically significant vertebral stenosis. There is no evidence of verte bral dissection. The vertebral basilar junction remains unusual in appearance with tortuosity as well as a possible basilar web. IMPRESSION: No evidence of hemodynamically significant carotid or vertebral artery stenosis. No evidence of disse ction. ACT 112: Negative or not required by law. Electronically signed by: Nitesh Upton M.D. 08/12/2020 6:00 PM
[2020-08-12 18:04] LABS: Alanine Aminotransferase 18 U/L (12-78); Albumin Level 4.1 gm/dl (3.4-5.0); Aspartate Aminotransferase 8 U/L (15-37); BUN Creatinine Ratio 21.7 (10-20); Blood Urea Nitrogen 14 mg/dl (7-18); Calcium 9.2 mg/dl (8.5-10.1); Carbon Dioxide 26 mmol/L (21-32); Chloride 102 mmol/L (98-107); Creatinine Clr Calc Pharmacy 75.4 ml/min; Est GFR (Non-African American) 90.6; Glucose 126 mg/dl (70-99); Magnesium 1.7 mg/dl (1.8-2.4); Potassium 4.2 mmol/L (3.5-5.1); Sodium 137 mmol/L (136-145)
--- NOTE | 2020-08-12 18:05 | CT Scan Report ---
CT angio head w con CLINICAL HISTORY: Stroke Like Symptoms TECHNIQUE: CT angiography of the head was performed in a dynamic helical fashion during intravenous a dministration of 116 cc of Optiray 320. MIP imaging was performed. A dose lowering technique was util ized adhering to the principles of ALARA. CT DOSE: COMPARISON STUDY: April 05, 2020 FINDINGS: There are no lesion suspicious for aneurysm. There are no major intracranial branch occlusi ons. The dural venous sinuses appear patent. There is tortuosity of the vertebral basilar junction. T he proximal basilar artery continues to have an unusual appearance of a small web cannot be excluded. This remains unchanged. This is felt to be of acute clinical significance. IMPRESSION: 1. No change from the prior study. No significant findings. ACT 112: Negative or not required by law. Electronically signed by: Nitesh Upton M.D. 08/12/2020 6:04 PM
[2020-08-12 18:09] LABS: Alkaline Phosphatase 56 U/L (45-117); Bilirubin,Total 0.6 mg/dl (0.2-1); Globulin 4.2 gm/dl (2.5-4.0); Total Protein 8.3 gm/dl (6.4-8.2); Troponin I < 0.015 ng/ml (0-0.045)
[2020-08-12] MEDS ORDERED: SODIUM CHLORIDE 0.9% 1000ML 500 ML IV ONE (18:11)
[2020-08-12] MEDS ORDERED: MoRPHine SULFATE 4 MG/ML 1 ML CARP\\VIAL IV STA (18:12)
[2020-08-12] MEDS ORDERED: ONDANSETRON INJ 2 MG/ML 2 ML VIAL IV STA (18:37)
--- NOTE | 2020-08-12 18:45 | XRay Report ---
XR chest 1V portable CLINICAL HISTORY: Stroke Like Symptoms COMPARISON STUDY: 08/10/2020 FINDINGS: The heart is enlarged. There is elevation of interstitium, likely secondary to mild interst itial pulmonary edema. Interstitial infectious/inflammatory processes could appear similar but is fel t to be typically less likely. There is no focal pulmonary consolidation. There are no pleural effusi ons.[ IMPRESSION: 1. Interval development of interstitial thickening, likely secondary to mild interstitial pulmonary e patricia. ACT 112: Negative or not required by law. Electronically signed by: Nitesh Upton M.D. 08/12/2020 6:44 PM
[2020-08-12] MEDS ORDERED: PROMETHAZINE HCL 12.5 MG in SODIUM CHLORIDE 0.9% 50 ML IV STA (19:19)
--- NOTE | 2020-08-12 20:37 | History & Physical Report ---
Date of Service August 12, 2020 Assessment & Plan (1) TIA (transient ischemic attack): Suspected TIA with right upper extremity weakness and expressive dysphasia similar to prior TIA in April. Complete stroke workup with MRI wo contrast Given recent TTE will defer this to neurology if required. Add aspirin to clopidogrel Continue simvastatin given LDL at goal (will defer to neurology whether they feel this needs to be increased to a high density statin. Allow permissive hypertension (discontinue lisinopril). PT/OT/Speech consult Consult neurology (2) Vomiting: ? Due to hypertensive urgency however suspect made worse with morphine use, will try to avoid further opiates. Continue ondansetron 4 mg every 6 hourly as needed. Additional Phenergan to be given now. (3) Hypertension: Hold lisinopril to allow for permissive hypertension. We will continue her usual metoprolol to avoid rebound tachycardia. Treat blood pressure overnight if systolic persistently > 220. (4) Diabetes mellitus: HbA1c with a.m. labs. Previously 6.6 in May. Consult pharmacy for glycemic control in the setting of acute TIA/CVA (5) DVT prophylaxis: SCDs. No chemical prophylaxis unless there is prolonged past tomorrow. Admission and Anticipated Discharge Date Admission Date: August 12, 2020 History of Present Illness Chief Complaint: Strokelike symptoms Primary Care Provider: KATARZYNA Sibley Cristiane Montenegro is a 70 year old female who presents to the ER with stroke-like symptoms. She noted right arm weakness quickly followed by expressive dysphasia (she felt unable to get the right words out) and bilateral lower extremity lack of co-ordination which started at 12pm and lasted for 15 minutes (although she still notes very mild right upper extremity weakness). Associated frontal headache, nausea and vomiting. The vomiting has got worse since morphine was given in the ER. No history of migraines. She had a similar episode in April with normal MRI findings at that time. Treated with dual antiplatelet therapy at the time but subsequently switched to clopidogrel alone. 30-day outpatient event monitor was negative for atrial fibrillation. In the ER she was outside the window to administer TPA. Telestroke was called and recommended usual stroke work-up at this time. Recommended allowing permissive hypertension with systolic blood pressure > 180. CT head and angiograms showed no acute intracranial findings. She was referred to medicine for admission and ongoing management for strokelike symptoms -suspected TIA. Allergies Allergy/AdvReac Type Severity Reaction Status Date / Time No Known Allergies Allergy Verified 08/12/20 19:08 Home Medications Medication Instructions Recorded Confirmed Type cyanocobalamin (vitamin B-12) 1,000 mcg IM MONTHLY ml 03/27/19 08/12/20 History 1,000 mcg/mL injection solution cholecalciferol (vitamin D3) 3,000 units PO QAM 04/05/20 08/12/20 History metoprolol succinate 25 mg PO QAM 04/05/20 08/12/20 History multivitamin [Daily Multi-Vitamin] 1 tab PO QAM 04/05/20 08/12/20 History nitroglycerin 0.4 mg SL DIRECTED PRN 04/05/20 08/12/20 History simvastatin 40 mg PO QPM 04/05/20 08/12/20 History clopidogrel 75 mg tablet 75 mg PO QAM #90 tab 04/13/20 08/12/20 Rx metformin 1,000 mg tablet 1,000 mg PO BID #180 tab 04/25/20 08/12/20 Rx insulin glargine 100 unit/mL (3 45 unit SQ HS 90 Days #40.5 ml 06/09/20 08/12/20 Rx mL) subcutaneous pen acetaminophen [Tylenol Extra 1,000 mg PO Q6H PRN 08/10/20 08/12/20 History Strength] lisinopril 10 mg PO QAM 08/10/20 08/12/20 History Past Med/Surg History Medical History (Updated 08/13/20 @ 10:32 by Nick Smallwood MD) Anemia Arteriosclerotic coronary artery disease Carotid artery plaque Carotid bruit Grief reaction Headache Inflammatory polyps of colon Iron deficiency anemia Lyme disease Memory difficulty Nausea Osteopenia Tubular adenoma of colon Surgical History History of cataract surgery History of cholecystectomy History of coronary artery stent placement Cath stent 1 distal right coronary artery History of dental surgery History of gastric bypass History of hysterectomy Family History Family/Other Colorectal cancer Cousin Aunt Breast cancer Father Myocardial infarction Denies family history of Ovarian cancer Prostate cancer Social History Smoking Status: Former smoker Hx Alcohol Use: No Hx Substance Use: No Preferred Language: [place] Communication Ability: Effective Beliefs That Will Affect Care: None marital status: Current Living Situation: Spouse current occupational status: retired Feels Safe at Home: Yes caffeine: Yes during the past year weight has: remained stable Dental Care, Regularly: No Seatbelt Use: always Sunscreen Use: No Assistive Devices: Denture - Upper and Denture - Lower Review of Systems Review of Systems: All systems reviewed & are unremarkable except as noted in HPI & below Physical Exam Constitutional: well developed, + acute distress (vomiting) and + morbidly obese; + not well nourished Eyes: PERRL, conjunctivae normal, anicteric sclerae ENMT: external ear and nose normal, oropharynx normal Neck: normal visual inspection and trachea midline Respiratory: normal respiratory effort, lungs clear to auscultation Cardiovascular: RRR, no murmur, no edema Gastrointestinal (Abdomen): normal bowel sounds, soft, nontender, no hepatosplenomegaly Musculoskeletal: no cyanosis or clubbing, extremities motor strength 5/5 Skin: no rashes, warm and dry Neurologic: moves all extremities, + focal motor deficit (Mild reduced pm head cook strength on right side) and awake; not confused Speech / Cognition: normal speech Motor/Sensory: no tremor, no pronator drift and no sensory deficit Psychiatric: A+Ox3, euthymic affect Results & Data Results & Data ([facility]) Vital Signs (Past 12 Hours) Vital Signs Pulse Pulse Resp BP BP Pulse Ox 08/12/20 18:46 96 H 14 196/97 H 98 08/12/20 18:34 95 H 19 203/104 H 99 08/12/20 18:25 100 H 14 201/118 H 95 08/12/20 17:19 123 H 18 222/[address] head/brain wo con IMPRESSION: No acute intracranial findings CT angio head w con IMPRESSION: 1. No change from the prior study. No significant findings. CT angio neck with con IMPRESSION: No evidence of hemodynamically significant carotid or vertebral artery stenosis. No evidence of dissection. Medications Administered ER medications given: None ECG Indication: tachycardia Rate (beats per minute): 109 Rhythm: sinus tachycardia Findings: no acute ischemic change Comparison ECG Date: from (August 10, 2020) Change: the following changes noted (Rate change only) Code Status & VTE Plan Code Status Full VTE Prophylaxis Plan VTE Prophylaxis will be ordered: Yes PG Care Time/CCT Total # of Minutes Spent Total Time Spent with Patient: Total time spent is greater than 50% in coordination of care (as documented) at patient's floor/unit and/or counseling patient: Coding Level of Care Code 12843 OBS Care - Level 3 Diagnoses TIA (transient ischemic attack) G45.9 Vomiting R11.10 Nausea presence: unspecified Vomiting Intractability: unspecified Vomiting type: unspecified Hypertension I10 Hypertension type: unspecified Diabetes mellitus E11.9 DVT prophylaxis Z29.9 (1) Vomiting Nausea presence: unspecified Vomiting Intractability: unspecified Vomiting type: unspecified Qualified Code(s): R11.10 - Vomiting, unspecified (2) Hypertension Hypertension type: unspecified Qualified Code(s): I10 - Essential (primary) hypertension
[2020-08-12] MEDS ORDERED: ALUMINUM/MAGNESIUM SUSP 30 ML UDC PO PRN (22:00)
[2020-08-12] MEDS ORDERED: POLYETHYLENE (MIRALAX) 17 GM PACK PO PRN (22:00)
[2020-08-12] MEDS ORDERED: ACETAMINOPHEN 325 MG TAB PO PRN (22:00)
[2020-08-12] MEDS ORDERED: PHARMACIST DISCHARGE MED REC CONSULT PRN (22:00)
[2020-08-12] MEDS ORDERED: ONDANSETRON INJ 2 MG/ML 2 ML VIAL IV PRN (22:00)
[2020-08-12] MEDS ORDERED: ACETAMINOPHEN 500 MG TAB PO PRN (22:06)
[2020-08-12] MEDS ORDERED: SIMVASTATIN 40 MG TAB PO SCH (22:10)
[2020-08-12] MEDS ORDERED: PHARMACY GLYCEMIC MGMT CONSULT PRN (22:16)
[2020-08-12] MEDS ORDERED: CARBOHYDRATES FOR HYPOGLYCEMIA PO PRN (22:30)
[2020-08-12] MEDS ORDERED: GLUCOSE 40% GEL 15 GM TUBE PO PRN (22:30)
[2020-08-12] MEDS ORDERED: GLUCOSE 10 TABS/TUBE PO PRN (22:30)
[2020-08-12] MEDS ORDERED: DEXTROSE 50% 50 ML SYRINGE IV PRN (22:30)
[2020-08-12] MEDS ORDERED: GLUCAGON FOR INJ 1 MG VIAL SQ PRN (22:30)
[2020-08-12] MEDS ORDERED: INSULIN GLARGINE SOLOSTAR 100 UNITS/ML 3 ML PEN SC ONE (22:45)
[2020-08-12] MEDS: LACTATED RINGER'S 1,000 ML IV SCH (22:52)
[2020-08-12] MEDS: INSULIN ASPART 100 UNITS/ML 3 ML PEN SC SCH (22:59)
[2020-08-12] MEDS: ASPIRIN 81 MG ECTAB PO SCH (23:34)
[2020-08-13] MEDS: INSULIN ASPART 100 UNITS/ML 3 ML PEN SC SCH ×2 (00:29→06:21)
--- NOTE | 2020-08-13 07:23 | Magnetic Resonance Report ---
MRI OF THE BRAIN WITHOUT CONTRAST CLINICAL HISTORY: expressive dysphasia, RUE weakness ?CVA COMPARISON STUDY: MRI the brain dated 04/05/2020, noncontrast head CT dated 08/12/2020 FINDINGS: Sagittal T1, axial diffusion, proton density and T2 weighted axial, coronal FLAIR, and axial T1-weigh alicia images were acquired. No intra or extra-axial mass lesions are visualized Axial diffusion-weighted images reveal no evidence of acute or subacute infarction. There is no evidence of ventricular dilatation. Proton density T2-weighted and FLAIR images reveal scattered foci of increased T2 signal within the w romie matter, likely on a small vessel basis. There are no abnormal flow voids. IMPRESSION: 1. No acute intracranial findings 2. No evidence of acute or subacute infarction 3. No evidence of intracranial mass in this noncontrast study 4. Foci of increased T2 and FLAIR signal within the white matter, similar to the prior study and like ly on a small vessel ischemic basis ACT 112: Negative or not required by law. Electronically signed by: Nitesh Upton M.D. 08/13/2020 7:22 AM
[2020-08-13 07:30] LABS: Basophils # (auto) 0.01 K/uL (0-0.2); Basophils % (auto) 0.1 %; Hemoglobin 11.9 g/dL (12.0-16.0); Immature Granulocytes # (auto) 0.02 K/uL (0.00-0.02); Immature Granulocytes % (auto) 0.2 %; Lymphocytes # (auto) 1.72 K/uL (1.2-3.4); Lymphocytes % (auto) 17.4 %; Mean Corpuscular Hemoglobin 26.2 pg (25-34); Mean Corpuscular Hgb Conc 32.2 g/dL (32-36); Mean Corpuscular Volume 81.3 fL (80-100); Monocytes # (auto) 1.12 K/uL (0.11-0.59); Monocytes % (auto) 11.3 %; Neutrophils # (auto) 7.03 K/uL (1.4-6.5); Platelet Count 247 K/uL (130-400); RDW Coefficient of Variation 14.6 % (11.5-14.5); RDW Standard Deviation 43.1 fL (36.4-46.3); Red Blood Count 4.55 M/uL (4.2-5.4)
[2020-08-13 07:52] LABS: Estimated Average Glucose 137 mg/dl; Hemoglobin A1C 6.4 % (4.5-5.6)
[2020-08-13] MEDS: ASPIRIN 81 MG ECTAB PO SCH (08:12)
[2020-08-13] MEDS: LACTATED RINGER'S 1,000 ML IV SCH (08:12)
[2020-08-13 08:13] LABS: BUN Creatinine Ratio 30.7 (10-20); Creatinine Clr Calc Pharmacy 115.4 ml/min; Est GFR (African American) 121.2; Est GFR (Non-African American) 104.6; Potassium 3.6 mmol/L (3.5-5.1)
[2020-08-13] MEDS ORDERED: METOPROLOL SUCC 25MG EXT REL TAB PO SCH (09:00)
[2020-08-13] MEDS ORDERED: CHOLECALCIFEROL 1,000 UNITS 25 MCG TAB PO SCH (09:00)
[2020-08-13] MEDS ORDERED: CLOPIDOGREL BISULFATE 75 MG TAB PO SCH (09:00)
[2020-08-13] MEDS ORDERED: MULTIVITAMIN TAB PO SCH (09:00)
--- NOTE | 2020-08-13 10:08 | Neurology Consultation ---
Date of Consultation August 13, 2020 Assessment & Plan (1) TIA (transient ischemic attack): Probable TIA localizing to the left cerebral hemisphere/left middle cerebral artery territory. This episode occurs while on clopidogrel 75 mg/day. As with her previous evaluations, no evidence of a significant vascular lesion on CT angiography of the head and neck that would potentially explain her symptoms. However, given this patient's history of ischemic cardiomyopathy with areas of severe hypokinesis and akinesis identified on echocardiography this past April I wonder if she may be having recurrent cardiac embolic events. It is notable that her recent outpatient 30-day cardiac event monitor was negative for atrial fibrillation, however. At this point, I would recommend obtaining an up-to-date transthoracic echocardiogram with bubble study to evaluate for any significant change and possibly exclude a thrombus. Would recommend dual antiplatelet therapy for 3 weeks consisting of daily low- dose aspirin and clopidogrel 75 mg/day. After which, I would discontinue the aspirin and continue with clopidogrel monotherapy as longer duration dual antiplatelet therapy is not proven effective for secondary stroke risk reduction relative to increased bleeding risk. However, it may be advisable to consider anticoagulation for this patient in light of her previous echocardiogram findings. Would follow-up with up-to-date echocardiogram as above and consider obtaining a cardiology consultation in this regard as well. She does follow with Dr. Horowitz as an outpatient. Another diagnostic possibility for this patient could include complicated migraine. However, I am a bit reluctant to attribute her presentations to this condition. She does not have a known history of migraine and I think it would require that we overlook her cardiovascular risk factors. History of Present Illness Reason for Consultation: Strokelike symptoms Requesting Physician: Nick Smallwood MD Attending Physician: Nick Smallwood MD History of Present Illness The patient is a 70-year old female with a chief complaint of right arm weakness and associated difficulty with expressive speech that began acutely yesterday afternoon while at home paying bills. She also experienced an associated low- grade headache as well as nausea and vomiting. She admits that the weakness and speech change resolved within a few hours although she elected to come to the emergency department 5 hours later for further evaluation and management. She was observed to have a mild right sided facial droop during her initial evaluation. She was outside of the window for administration of TPA. Initial imaging evaluation including CT of the head and CT angiography of the head and neck were completed and are unremarkable. She was admitted to the hospital for further evaluation and management with a diagnosis of probable TIA which upon further review and according to the patient was very similar to her presentation this past April during which time I had evaluated her in the hospital for a probable TIA localizing to the left cerebral hemisphere characterized by dysarthria, possible expressive aphasia, and a right hemiparesis affecting the face and arm, primarily the arm, resolving in about 1 hour. Stroke risk factors at that time included hypertension, hyperlipidemia, and diabetes mellitus. She also has a history of a chronic ischemic cardiomyopathy for which she follows with Dr. Horowitz. At the time of this patient's last hospitalization she had been taking daily low-dose aspirin. She was treated with dual antiplatelet therapy for 3 weeks and subsequently discontinued aspirin in favor of clopidogrel 75 mg/day. She did complete an outpatient 30-day cardiac event monitor this past May that was negative for atrial fibrillation. I saw her for a clinic follow-up appointment on 06/01/2020 and had recommended that she continue with clopidogrel, atorvastatin, and her other cardiovascular risk modifying medications at that time. She has also complained of some mild difficulty with memory, although nothing that appears to be significant. I see that she had presented to our emergency department on 08/10/2020 complaining of headache. She had an unremarkable CT of the head at that time. Her headache may have been related to hypertension and hypomagnesemia. The patient did complete a follow- up brain MRI during her current hospitalization. No acute process identified. No evidence of acute or subacute stroke, hemorrhage, or other significant pathology other than chronic small vessel ischemic disease, similar to her previous MRI done 04/05/2020. Patient does not have a known history of migraine and she denies this particular diagnosis. She does admit that her headache and nausea have resolved. Allergies Allergy/AdvReac Type Severity Reaction Status Date / Time No Known Allergies Allergy Verified 08/12/20 19:08 Home Medications Medication Instructions Recorded Confirmed Type cyanocobalamin (vitamin B-12) 1,000 mcg IM MONTHLY ml 03/27/19 08/12/20 History 1,000 mcg/mL injection solution cholecalciferol (vitamin D3) 3,000 units PO QAM 04/05/20 08/12/20 History metoprolol succinate 25 mg PO QAM 04/05/20 08/12/20 History multivitamin [Daily Multi-Vitamin] 1 tab PO QAM 04/05/20 08/12/20 History nitroglycerin 0.4 mg SL DIRECTED PRN 04/05/20 08/12/20 History simvastatin 40 mg PO QPM 04/05/20 08/12/20 History clopidogrel 75 mg tablet 75 mg PO QAM #90 tab 04/13/20 08/12/20 Rx metformin 1,000 mg tablet 1,000 mg PO BID #180 tab 04/25/20 08/12/20 Rx insulin glargine 100 unit/mL (3 45 unit SQ HS 90 Days #40.5 ml 06/09/20 08/12/20 Rx mL) subcutaneous pen acetaminophen [Tylenol Extra 1,000 mg PO Q6H PRN 08/10/20 08/12/20 History Strength] lisinopril 10 mg PO QAM 08/10/20 08/12/20 History Patient History Medical History Anemia Arteriosclerotic coronary artery disease Carotid artery plaque Carotid bruit Grief reaction Headache Inflammatory polyps of colon Iron deficiency anemia Lyme disease Memory difficulty Nausea Osteopenia Tubular adenoma of colon Surgical History History of cataract surgery History of cholecystectomy History of coronary artery stent placement Cath stent 1 distal right coronary artery History of dental surgery History of gastric bypass History of hysterectomy Family History Family/Other Colorectal cancer Cousin Aunt Breast cancer Father Myocardial infarction Denies family history of Ovarian cancer Prostate cancer Social History Smoking Status: Former smoker Hx Alcohol Use: No Hx Substance Use: No Preferred Language: [place] Communication Ability: Effective Beliefs That Will Affect Care: None marital status: Current Living Situation: Spouse current occupational status: retired Feels Safe at Home: Yes caffeine: Yes during the past year weight has: remained stable Dental Care, Regularly: No Seatbelt Use: always Sunscreen Use: No Assistive Devices: Denture - Upper and Denture - Lower Review of Systems Constitutional: no fever and no chills Eyes: no blind spots and no diplopia Ear, Nose, Mouth, Throat: no ear pain and no hearing loss Respiratory: no cough and no dyspnea Cardiovascular: no chest pain and no palpitations Gastrointestinal: as per Subjective / HPI, + nausea and + vomiting Genitourinary: no dysuria Musculoskeletal: no myalgia Integumentary: no rash and no lesions Neurologic: as per Subjective / HPI, + localized weakness, + headache(s) and + abnormal speech These symptoms have resolved. Psychiatric: no depression and no anxiety Hematologic / Lymphatic: no easy bleeding and no easy bruising Exam (Neuro) Constitutional: well developed and well nourished; no acute distress Eyes: normal visual shrestha by confrontation, PERRL, normal accommodation and EOM intact bilaterally; no fundoscopic abnormality, no nystagmus and no papilledema Cardiovascular: Vessels: normal carotid upstroke; no carotid bruit Neurologic: Oriented to:: Person, Place and Time Memory: Short Term Intact and Remote Intact Attention: Span Intact and Concentration Intact Language: Naming Objects and Repeating Phrases Speech Fluency: negative Dysarthria Speech Aphasia: negative Aphasia Fund of Knowledge: Current Events, Past History and Vocabulary Cranial Nerves: Normal II (Visual shrestha full to confrontation, visual acuity normal), III, IV, (Pupils equal round reactive to light and accommodation, eye movements normal), V (Facial sensation intact), VII (There is no facial droop or weakness), VIII (Hearing intact), IX, X (Palate elevates to midline), XI (Shoulder shrug intact) and XII (Tongue protrudes to midline) Motor Strength: Normal Lower Extremities and Normal Upper Extremities; negative Pronator Drift Motor Tone: Normal Lower Extremities and Normal Upper Extremities Muscle Bulk/Involuntary Movements: No Involuntary Movements; negative Muscle Atrophy Sensation: Light Touch Intact, Pain/Temperature Intact, Vibration Intact and Proprioception Intact Coordination: Normal; negative Limited Balance, Dysdiadochokinesia, Finger-Nose Abnormal and Heel-Chavez Abnormal Deep Tendon Reflexes: Rt Triceps: 2+, Lt Triceps: 2+, Rt Biceps: 2+, Lt Biceps: 2+, Rt Brachioradialis: 2+, Lt Brachioradialis: 2+, Rt Patellar: 2+, Lt Patellar: 2+, Rt Ankle: 2+ and Lt Ankle: 2+ Special Tests: negative Babinski Present Gait: Normal Station and Gait Results & Data ([facility]) Vital Signs (Past 12 Hours) Vital Signs Temp Pulse Pulse Resp BP Pulse Ox 08/13/20 07:41 36.9 C 87 16 118/72 92 08/13/20 03:36 37.1 C 84 15 112/65 95 08/13/20 00:17 89 08/12/20 22:55 36.9 C 90 17 188/90 H 95 08/12/20 22:04 92 H Laboratory Results WBC 9.90, hemoglobin 11.9, hematocrit 37.0, platelet count 247, sodium 138, potassium 3.6, BUN 13, creatinine 0.42, glucose 79, hemoglobin A1c 6.4, calcium 9.0 Lipid panel completed 04/06/2020 reviewed: Triglycerides 209, cholesterol 113, LDL 36, VLDL 42, HDL [address] of the head negative for hemorrhage or acute process. CTA of the head and neck negative for hemodynamically significant stenosis, dissection, or aneurysm. There is some tortuosity at the origin of the basilar artery that was seen on a previous CTA done this past April as well. MRI of the brain negative for acute or subacute stroke. There is evidence of chronic small vessel ischemic disease. These findings were observed by the interpreting radiologist. I reviewed the images and agree. An electrocardiogram completed yesterday revealed sinus tachycardia, 109 bpm. There was some evidence of an inferior chronic infarct that have been seen on previous ECG as well. 30-day cardiac event monitoring completed on 05/12/2020 reviewed. Normal sinus rhythm, few PACs and PVCs. No atrial fibrillation. An echocardiogram completed 04/06/2020 revealed a mildly dilated left ventricle with low normal systolic function, ejection fraction 50 to 55% with severe hypokinesis to akinesis of the basal to mid inferior wall. Akinesis of the inferolateral wall. Mild hypokinesis of the base to mild inferoseptal wall. No left ventricular hypertrophy. No visualized right to left interatrial shunting. Left atrium moderately dilated. Coding Level of Care Code 84706 Initial Inpt Care Lvl 3 Diagnoses TIA (transient ischemic attack) G45.9
--- NOTE | 2020-08-13 11:06 | Electrocardiogram Report ---
Test Reason : Blood Pressure : / mmHG Vent. Rate : 109 BPM Atrial Rate : 109 BPM P-R Int : 164 ms QRS Dur : 108 ms QT Int : 340 ms P-R-T Axes : 072 034 007 degrees QTc Int : 457 ms Poor data quality, interpretation may be adversely affected Sinus tachycardia Possible Inferior infarct (cited on or before 20-JUN-1999) Abnormal ECG When compared with ECG of 10-AUG-2020 12:22, Premature ventricular complexes are no longer Present Confirmed by Erasmo Salvador ([id number]) on 08/13/2020 11:06:14 AM Referred By: REFERRED SELF Confirmed By:Magdiel Salvador
[2020-08-13] MEDS ORDERED: INSULIN ASPART 100 UNITS/ML 3 ML PEN SC SCH (11:30)
--- NOTE | 2020-08-13 11:36 | Pharmacy Report ---
Pharmacy Glycemic Short Note 2 - Date of Service August 13, 2020 - Glycemic Short BSG Results (Last 24 hours): 08/12/20 08/12/20 08/12/20 17:33 17:52 22:03 Glucose 126 H POC Glucose 143 H 178 H 08/13/20 08/13/20 08/13/20 00:22 06:19 07:10 Glucose 79 POC Glucose 161 H 87 OUTPATIENT ANTIDIABETIC REGIMEN: * Lantus 45 units SQ qHS * metformin * A1c = 6.6% 06/02/20 ASSESSMENT: * Cristiane is a 70 yo T2DM female admitted for TIA * She is well controlled at home on Lantus + metformin * She was given a partial dose of Lantus last evening for NPO status. Diet to be resumed today with lunch. * Fasting BSG is below goal despite reduction in Lantus. Will titrate dose conservatively. * Will split home dose of 45 units/day into a 50% basal and 50% bolus regimen. PLAN FOR INPATIENT GLYCEMIC CONTROL: * Hold outpatient oral diabetes medications * Basal insulin * Lantus per scale SQ qHS * 15 units for BSG < 120 * 20 units for BSG 120-200 * 25 units for BSG > 200 * Bolus insulin * NovoLog per scale ACHS or Q6hrs while NPO * Goal Range: Low 110 mg/dL - High 140 mg/dL * Correction Factor: 30 mg/dL/unit * Nutritional / Prandial insulin per carb ratio of 1 unit per 12 grams CHO consumed PLAN FOR DISCHARGE: * A1c of 6.6% is at goal * May continue home regimen on discharge
--- NOTE | 2020-08-13 12:15 | XCELERA ---
[id number]
--- NOTE | 2020-08-13 16:36 | Discharge Summary ---
Date of Service August 13, 2020 Admission HPI Per Admitting Provider Cristiane Montenegro is a 70 year old female who presents to the ER with stroke-like symptoms. She noted right arm weakness quickly followed by expressive dysphasia (she felt unable to get the right words out) and bilateral lower extremity lack of co-ordination which started at 12pm and lasted for 15 minutes (although she still notes very mild right upper extremity weakness). Associated frontal headache, nausea and vomiting. The vomiting has got worse since morphine was given in the ER. No history of migraines. She had a similar episode in April with normal MRI findings at that time. Treated with dual antiplatelet therapy at the time but subsequently switched to clopidogrel alone. 30-day outpatient event monitor was negative for atrial fibrillation. In the ER she was outside the window to administer TPA. Telestroke was called and recommended usual stroke work-up at this time. Recommended allowing permissive hypertension with systolic blood pressure > 180. CT head and angiograms showed no acute intracranial findings. She was referred to medicine for admission and ongoing management for strokelike symptoms -suspected TIA. Principal Diagnosis TIA Discharge Exam Constitutional WD/WN, vitals as above Respiratory normal respiratory effort, lungs clear to auscultation Cardiovascular Rate/Rhythm: regular rate and regular rhythm Heart Sounds: + murmur (systolic ) Gastrointestinal (Abdomen) normal bowel sounds, soft, nontender, no hepatosplenomegaly Musculoskeletal no cyanosis or clubbing, extremities motor strength 5/5 Skin no rashes, warm and dry Neurologic CN's II-XI intact bilaterally, moves all extremities and awake Psychiatric A+Ox3, euthymic affect Discharge Data Allergies Allergy/AdvReac Type Severity Reaction Status Date / Time No Known Allergies Allergy Verified 08/12/20 19:08 Consultations 08/12/20 18:23 ED Decision to Admit Stat 08/12/20 22:00 Consult Case Management - Discharge Planning Routine Consult Neurology Routine Ordered Studies 08/12/20 17:29 CT angio head w con Stat CT angio neck with con Stat CT head/brain wo con Stat 08/12/20 19:35 MR brain wo con Stat Hospital Course (1) TIA (transient ischemic attack): TIA with right upper extremity weakness and expressive dysphasia similar to prior TIA in April. MRI, CTA head/neck - no acute findings, no hemodynamically significant carotid or vertebral stenosis Echo showed chronic WMA/severe inferior hypokinesis. Patient was sinus rhythm with PVCs on the monitor. Continue clopidogrel, add 81 mg asa for 3 weeks and then discontinue Change simvastatin to atorvastatin for better plaque stability Allowed permissive hypertension (held lisinopril) PT/OT/Speech consult Consulted neurology Discussed necessity of anticoagulation with cardiology per neurology rec - no anticoagulation but would have patient follow with her general office assistant (Dr. Horowitz) outpatient and possibly obtain loop recorder to evaluate for occult atrial fibrillation (2) Vomiting: Possibly due to hypertensive urgency - no vomiting today, able to eat a small amount (3) Hypertension: Hold lisinopril to allow for permissive hypertension, continued metoprolol Blood pressures in ED as high as 222/104, but today 1teens/70s (4) Diabetes mellitus: A1c . Previously 6.4% in May. Resume home meds at discharge but hold metformin until Saturday for CT contrast (5) Pulmonary hypertension: On echo right ventricular systolic pressure elevated at 30-40 mmHg Sleep apnea? Could consider sleep study if patient has not had in the past (6) Hypomagnesemia: Mag 1.7 on admission - appears frequently low in looking back through past values initiate po replacment for home (7) Elevated blood protein: Follow up with pcp (8) DVT prophylaxis: SCDs. Total Time Total Time Spent Total Time Spent (In Minutes): greater than 30 minutes Discharge Plan Discharge Items Patient Disposition: Home - Self-Care Reason For Visit: STROKE LIKE SYMPTOMS Discharge Diagnosis: TIA (trans ischemic attack) Activity: Resume your previous activity Driving/Machine Use: no driving until cleared by your provider Non-emergency contact: Primary Care Provider Call non-emergency contact if: you have any medication questions and your symptoms worsen Follow-up/Referrals: Eli Gavin CRNP [Primary Care Provider] - (follow up one week ) Dheeraj Horowitz MD [Physician] - (follow up in one week ) Diet: Heart Healthy Addtl Attending Provider Instructions: (1) TIA (transient ischemic attack): You were admitted for a TIA, sometimes referred to as a "mini-stroke". Your MRI and CT did not show a stroke had occurred in your brain, meaning there is no indication of new brain cell due to oxygen deprivation. You should add a baby aspirin for the next three weeks and then discontinue. Continue clopidogrel Your simvastatin was changed to atorvastatin Please follow up with your general office assistant in a week to discuss any further cardiac monitoring that he may wish you to have. Please wait to resume driving until you are cleared by your primary care provider at follow up Because you had contrast with your brain imaging you will need to HOLD YOUR METFORMIN until Tuesday 08/15 (2) Hypertension: Your blood pressure was quite high on admission but has now normalized. Please check your blood pressure daily at home and keep a log to take with you to your primary care provider (3) Hypomagnesemia It appears that you frequently have low serum magnesium. Will have you start a daily supplement and follow up with your provider Pending Studies at Discharge: No Stand-Alone Forms: Medications to Prevent Stroke, My [email or web address], Smoking Cessation Medications and DC Order Prescriptions: New atorvastatin 40 mg Tablet 40 mg PO QAM Qty: 30 RF: 0 aspirin 81 mg Tablet,Delayed Release (Dr/Ec) 81 mg PO QAM Qty: 21 RF: 0 magnesium oxide 500 mg tablet 500 mg PO DAILY Qty: 30 RF: 0 Continued metformin 1,000 mg tablet 1,000 mg PO BID Qty: 180 RF: 3 Lantus Solostar U-100 Insulin 100 unit/mL (3 mL) insulin pen 45 unit SQ HS 90 Days Qty: 40.5 RF: 5 cyanocobalamin (vitamin B-12) 1,000 mcg/mL solution 1,000 mcg IM MONTHLY RF: 0 clopidogrel 75 mg tablet 75 mg PO QAM Qty: 90 RF: 1 multivitamin [Daily Multi-Vitamin] tablet 1 tab PO QAM RF: 0 nitroglycerin 0.4 mg tablet, sublingual 0.4 mg SL DIRECTED PRN (Reason: Chest Pain) RF: 0 metoprolol succinate 25 mg tablet extended release 24 hr 25 mg PO QAM RF: 0 cholecalciferol (vitamin D3) 3,000 unit tablet 3,000 units PO QAM RF: 0 acetaminophen [Tylenol Extra Strength] 500 mg Tablet 1,000 mg PO Q6H PRN (Reason: Fever Or Pain) RF: 0 lisinopril 10 mg tablet 10 mg PO QAM RF: 0 Discontinued simvastatin 40 mg tablet 40 mg PO QPM RF: 0 Discharge Orders: Discharge Order (Routine); Ordered 08/13/20 Ordered By: Anna Arnold Admission Data Admit Date/Time: 08/12/20 19:09 Attending Provider: Andrea Benson Admit Provider: Nick Smallwood Primary Care Provider: Eli Gavin Other Providers: Nick Smallwood ; Brandon Mike Other Interventions: Discharge Summary Assessment (RN) Last Done: 08/13/20 17:23 Supervising Physician Co-Signing Physician Notes I personally examined the patient and verified all rose points of history and exam, discussed case, and agree with decision making with Tuan COLÓN feeling better. ready to go home. vitals noted nad heent nc at mmm no focal neuro deficits noted TIA -outpt w/u ongoing for possible cardioembolic source. symptoms quite similar to prior so concern also on intracranial small vessel disease - change statin to atorva, asa/plavix both for 3wks then plavix stable for home, otherwise as above Coding Level of Care Code D/C Day Management >30 mins Diagnoses TIA (transient ischemic attack) G45.9 Vomiting R11.10 Nausea presence: unspecified Vomiting Intractability: unspecified Vomiting type: unspecified Hypertension I10 Hypertension type: unspecified Diabetes mellitus E11.9 Pulmonary hypertension I27.20 Hypomagnesemia E83.42 Elevated blood protein E88.09 DVT prophylaxis Z29.9
[2020-08-13] MEDS ORDERED: STROKE PATIENT DISCHARGE STA (16:58)
--- NOTE | 2020-08-13 17:31 | Pharmacy Report ---
Pharmacist Stroke Counseling - Date of Service August 13, 2020 - Scope: Pharmacy has been consulted to provide medication discharge counseling for this patient admitted with transient ischemic attack as per the Pharmacist Discharge Counseling for Stroke Patients Protocol. - Medications on Discharge: Home Medications Medication Instructions Recorded Confirmed cyanocobalamin (vitamin B-12) 1,000 mcg IM MONTHLY ml 03/27/19 08/12/20 1,000 mcg/mL injection solution cholecalciferol (vitamin D3) 3,000 units PO QAM 04/05/20 08/12/20 metoprolol succinate 25 mg PO QAM 04/05/20 08/12/20 multivitamin [Daily Multi-Vitamin] 1 tab PO QAM 04/05/20 08/12/20 nitroglycerin 0.4 mg SL DIRECTED PRN 04/05/20 08/12/20 acetaminophen [Tylenol Extra 1,000 mg PO Q6H PRN 08/10/20 08/12/20 Strength] lisinopril 10 mg PO QAM 08/10/20 08/12/20 New Rx's Medication Instructions Recorded clopidogrel 75 mg tablet 75 mg PO QAM #90 tab 04/13/20 metformin 1,000 mg tablet 1,000 mg PO BID #180 tab 04/25/20 insulin glargine 100 unit/mL (3 45 unit SQ HS 90 Days #40.5 ml 06/09/20 mL) subcutaneous pen aspirin 81 mg PO QAM #21 tab 08/13/20 atorvastatin 40 mg PO QAM #30 tab 08/13/20 magnesium oxide 500 mg PO DAILY #30 tab 08/13/20 - Action: The above medications, specifically ones for stroke treatment/prophylaxis, have been reviewed in detail with the patient and/or patient product representative(s) prior to discharge. This includes indication, common adverse reactions, drug interactions, and medication administration. Medication counseling has been employed using the teach-back method to ensure understanding. - Outcome: The patient and/or patient product representative(s) have demonstrated understanding of the medications. Additional comments: - Patient understands that simvastatin will be changed to atorvastatin and to look out for new onset muscle pains/weaknesses - Patient to hold metformin until Saturday given recent iodinated contrast - patient agreeable - Lastly, patient understands that aspirin to be taken with clopidogrel for 21 day period and then return to clopidogrel only - No obvious barriers to medication compliance noted Thank you for allowing pharmacy to be involved in the care of this patient. Please call [phone] with any additional questions
[2020-08-13] MEDS ORDERED: INSULIN GLARGINE SOLOSTAR 100 UNITS/ML 3 ML PEN SC SCH (21:00)
[2020-08-14] MEDS ORDERED: ATORVASTATIN 40 MG TAB PO SCH (09:00)
== END 2020-08-13 18:10 | disposition home or self-care (01) ==
LOC: 2N 17:14 → ED 17:14 → SUATTDRO 19:09 → 2N 20:21

== ENCOUNTER 2022-09-14 07:45 | Observation (INO) ==
--- NOTE | 2022-08-01 11:24 | PAT Medication Instructions ---
Medication Instructions Date of Service August 01, 2022 Home Medications Medication Instructions Recorded aspirin 81 mg tablet,delayed 81 mg PO QAM #21 tabs 08/13/20 release pen needle, diabetic 31 gauge x #100 ea 02/15/2112/18" (Azucena Pentlourdes) atorvastatin 40 mg tablet 40 mg PO QAM #90 tabs 09/04/21 lisinopril 10 mg tablet 10 mg PO QAM #90 tabs 12/01/21 tramadol 50 mg tablet 50 mg PO Q8H PRN pain #30 tabs 12/08/21 metoprolol succinate 25 mg 25 mg PO QAM #90 tabs 03/06/22 tablet,extended release 24 hr blood sugar diagnostic (OneTouch #200 ea 04/23/22 Verio test strips) clopidogrel 75 mg tablet 75 mg PO QAM #90 tabs 05/24/22 metformin 1,000 mg tablet 1,000 mg PO BID #180 tabs 06/11/22 alendronate 70 mg tablet (Fosamax) 70 mg PO .COMPLEX #12 tabs 06/12/22 Saccharomyces boulardii 250 mg 250 mg PO BID #20 caps 07/17/22 capsule (Florastor) loratadine 10 mg tablet (Claritin) 10 mg PO DAILY PRN itching #30 tabs 07/23/22 cyanocobalamin (vitamin B-12) 1,000 mcg/mL injection solution 1,000 mcg IM MONTHLY cholecalciferol (vitamin D3) 75 mcg (3,000 unit) tablet 3,000 units PO QAM multivitamin (Daily Multi-Vitamin tablet) 1 tab PO QAM nitroglycerin 0.4 mg sublingual tablet 0.4 mg sublingual DIRECTED PRN Chest Pain acetaminophen 500 mg tablet (Tylenol Extra Strength) 1,000 mg PO Q6H PRN Fever Or Pain aspirin 81 mg tablet,delayed release 81 mg PO QAM atorvastatin 40 mg tablet 40 mg PO QAM lisinopril 10 mg tablet 10 mg PO QAM tramadol 50 mg tablet 50 mg PO Q8H PRN pain metoprolol succinate 25 mg tablet,extended release 24 hr 25 mg PO QAM clopidogrel 75 mg tablet 75 mg PO QAM metformin 1,000 mg tablet 1,000 mg PO BID alendronate 70 mg tablet (Fosamax) 70 mg PO .COMPLEX Saccharomyces boulardii 250 mg capsule (Florastor) 250 mg PO BID loratadine 10 mg tablet (Claritin) 10 mg PO DAILY PRN itching escitalopram oxalate 20 mg tablet 20 mg PO QAM magnesium oxide 500 mg tablet 1,500 mg PO HS Continue as directed nitroglycerin 0.4 mg sublingual tablet 0.4 mg sublingual DIRECTED PRN Chest Pain (if needed) alendronate 70 mg tablet (Fosamax) 70 mg PO .COMPLEX ASK your prescriber and surgeon clopidogrel 75 mg tablet 75 mg PO QAM (in order for spinal anesthesia, Clopidogrel needs to be stopped 7 days before surgery. Please check if okay with doctor that prescribes this to you) DO NOT take the morning of surgery cyanocobalamin (vitamin B-12) 1,000 mcg/mL injection solution 1,000 mcg IM MO NTHLY cholecalciferol (vitamin D3) 75 mcg (3,000 unit) tablet 3,000 units PO QAM multivitamin (Daily Multi-Vitamin tablet) 1 tab PO QAM lisinopril 10 mg tablet 10 mg PO QAM metformin 1,000 mg tablet 1,000 mg PO BID Saccharomyces boulardii 250 mg capsule (Florastor) 250 mg PO BID loratadine 10 mg tablet (Claritin) 10 mg PO DAILY PRN itching Take morning of surgery With a small sip of water, OTHERWISE NOTHING TO EAT OR DRINK AFTER MIDNIGHT: acetaminophen 500 mg tablet (Tylenol Extra Strength) 1,000 mg PO Q6H PRN Fever Or Pain (if needed) aspirin 81 mg tablet,delayed release 81 mg PO QAM (continue as normal unless told otherwise by surgeon) atorvastatin 40 mg tablet 40 mg PO QAM tramadol 50 mg tablet 50 mg PO Q8H PRN pain (if needed) metoprolol succinate 25 mg tablet,extended release 24 hr 25 mg PO QAM escitalopram oxalate 20 mg tablet 20 mg PO QAM Take evening before surgery acetaminophen 500 mg tablet (Tylenol Extra Strength) 1,000 mg PO Q6H PRN Fever Or Pain (if needed) tramadol 50 mg tablet 50 mg PO Q8H PRN pain (if needed) metformin 1,000 mg tablet 1,000 mg PO BID Saccharomyces boulardii 250 mg capsule (Florastor) 250 mg PO BID loratadine 10 mg tablet (Claritin) 10 mg PO DAILY PRN itching (if needed) magnesium oxide 500 mg tablet 1,500 mg PO HS Other Notes If you have any questions please call us at [phone] or [phone] or [phone] or [phone]
--- NOTE | 2022-08-08 14:36 | Anesthesiology Consultation ---
Date of Service August 08, 2022 Assessment & Plan (1) Encounter for pre-operative examination: - COVID screening: Per assessment on 08/08: No known COVID-19 positive contacts or current COVID-19 related symptoms. Travel screen negative. At surgeon discretion if preop Covid testing being done. - Check BSG AM DOS - PCP office visit (07/23/22): "72-year-old female with multiple comorbidities presents for ER follow-up. While the diagnosis of urinary tract infection remains in question given the findings on urine culture as noted above, she did have dysuria, hematuria, and bladder wall thickening on CT scan which would support the diagnosis. I recommend she continue and finish out the course of cefdinir, especially as her symptoms have improved while taking antibiotic. 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 She does have a history of tobacco use, and in the setting of hematuria, she may warrant a cystoscopy but will defer that to urology's discretion. Notably, she is on dual antiplatelet therapy which increases her risk for any bleeding concerns. Regarding the itchiness that she describes without any notable rash, I recommend keeping her skin hydrated with creams and trialing as needed Claritin/Zyr amisha/Marta -prescribed Claritin but counseled it may not be covered by insurance and gave instructions on obtaining OTC medication. We also discussed trying to minimize being overheated with her clothing apparel to try to see if this is triggering her itchiness. Her left knee pain is likely secondary to exacerbation of osteoarthritis from her fall. Continue with Tylenol and recomm end reaching out to her orthopedic surgeon to see if there is any other treatment options considering she has knee replacement surgery scheduled in less than 2 months. Red flag signs and symptoms were discussed and return precautions were provided. All questions were answered and patient is in agreement with the plan. Follow up PRN." - Urology office visit (08/01/22): "We discussed gross hematuria in detail. We discussed that there can be several benign causes, however hematuria is never considered normal. We reviewed the work-up for gross hematuria, including urine cytology, cystoscopy and imaging of the upper urinary tracts. We discussed the relative risks and benefits of performing this work-up, and agreed to proceed. PLAN: Urine cytology.. CT abdomen/pelvis w/wo contrast.. Cystoscopy.. Renal angiomyolipoma: We reviewed the finding of likely angiomyolipoma on her recent CT scan. We discussed that this is typically a benign mass and would not be expected to spread, however could become symptomatic if she develops a bleed. She would prefer not to undergo any surgical removal. At 6 mm, I would not exp ect her to become symptomatic from this, and it would be reasonable to monitor. We will do her full hematuria work-up first and if that is negative, we can proceed with surveillance of the AML." Patient scheduled for cystoscopy with urology (09/12; SONJA)- awaiting results. Chart Review Chart Review: Patient seen in Pre Admission Testing Teaching & Discussion Pre-Anesthesia Teaching/Discussion Notes: Instructed NPO after midnight before surgery,except medications with 15 cc of water. Medication instructions provided according to the PAT guidelines. History Surgery Operation Date: 09/14/22 07:00 Proposed Procedures p Left Total Knee Arthroplasty - Brandon Nagy DO Height/Weight Height: 4 ft 9 in Weight: 70.4 kg Allergies Allergy/AdvReac Type Severity Reaction Status Date / Time No Known Allergies Allergy Verified 08/01/22 13:55 Medications Home Medications Medication Instructions Recorded Confirmed Last Taken cyanocobalamin (vitamin B-12) 1,000 mcg IM MONTHLY 03/27/19 08/01/22 07/21/20 1,000 mcg/mL injection solution cholecalciferol (vitamin D3) 75 3,000 units PO QAM 04/05/20 08/01/22 08/12/20 mcg (3,000 unit) tablet multivitamin (Daily Multi-Vitamin 1 tab PO QAM 04/05/20 08/01/22 08/12/20 tablet) nitroglycerin 0.4 mg sublingual 0.4 mg sublingual DIRECTED PRN 04/05/20 08/01/22 Unknown tablet Chest Pain acetaminophen 500 mg tablet 1,000 mg PO Q6H PRN Fever Or Pain 08/10/20 08/01/22 08/09/20 (Tylenol Extra Strength) aspirin 81 mg tablet,delayed 81 mg PO QAM #21 tabs 08/13/20 08/01/22 Unknown release pen needle, diabetic 31 gauge x #100 ea 02/15/21 08/01/22 Unknown 5/16" (Unifine Pentips) atorvastatin 40 mg tablet 40 mg PO QAM #90 tabs 09/04/21 08/01/22 Unknown lisinopril 10 mg tablet 10 mg PO QAM #90 tabs 12/01/21 08/01/22 Unknown tramadol 50 mg tablet 50 mg PO Q8H PRN pain #30 tabs 12/08/21 08/01/22 Unknown metoprolol succinate 25 mg 25 mg PO QAM #90 tabs 03/06/22 08/01/22 Unknown tablet,extended release 24 hr blood sugar diagnostic (OneTouch #200 ea 04/23/22 08/01/22 Unknown Verio test strips) clopidogrel 75 mg tablet 75 mg PO QAM #90 tabs 05/24/22 08/01/22 Unknown metformin 1,000 mg tablet 1,000 mg PO BID #180 tabs 06/11/22 08/01/22 Unknown alendronate 70 mg tablet (Fosamax) 70 mg PO .COMPLEX #12 tabs 06/12/22 08/01/22 Unknown Saccharomyces boulardii 250 mg 250 mg PO BID #20 caps 07/17/22 08/01/22 Unknown capsule (Florastor) loratadine 10 mg tablet (Claritin) 10 mg PO DAILY PRN itching #30 tabs 07/23/22 08/01/22 Unknown escitalopram oxalate 20 mg tablet 20 mg PO QAM 07/31/22 08/01/22 Unknown magnesium oxide 500 mg tablet 1,500 mg PO HS 07/31/22 08/01/22 Unknown Past Medical History Medical History Bladder mass urology appt with Dr. Jerez on 08/01 CAD (coronary artery disease) Stent x1 (1998) Follows with Dr. Horowitz Cardiac murmur Trace to mild MR per 08/19/20 echo Carotid artery plaque Per 08/12/20 neck CTA: Calcific plaque is visualized at the left carotid bifurcation without evidence of significant luminal narrowing. No evidence of hemodynamically significant carotid or vertebral artery stenosis. DM type 2 (diabetes mellitus, type 2) Hematuria Bladder mass noted on recent CT- referred to urology History of myocardial infarction 1998 History of TIA (transient ischemic attack) x2 (most recent was approximately 1.5 years ago)- reason for plavix HLD (hyperlipidemia) HTN (hypertension) Iron deficiency anemia Lyme disease hx Memory difficulty Osteoarthritis Osteopenia Osteoporosis Renal cyst Spinal stenosis Exercise / Class Metabolic Activity III < 4 Walking/Shop/Light housework Past Family History Family History Family/Other Colorectal cancer Cousin Aunt Breast cancer Father Myocardial infarction Denies family history of Ovarian cancer Prostate cancer Past Surgical History Surgical History History of cardiac catheterization 1998 - stent placed 1999 - no stents History of cataract surgery History of cholecystectomy History of colonoscopy History of dental surgery History of esophagogastroduodenoscopy (EGD) History of gastric bypass History of hysterectomy PONV (postoperative nausea and vomiting) Status post placement of implantable loop recorder Past Anesthesia History No Hx of Anesthesia Complications and No Family Hx of Anesthesia Complications History of PONV History of PONV (+ nausea) and Hx of Motion Sickness (Remote hx) Social History Smoking Status: Former smoker Do You Dip or Chew Tobacco: No Smoking End Date: Quit 1998 Hx Alcohol Use: No Hx Substance Use: No substance use type: does not use Review of Systems + snoring. No witnessed apneic events. Patient denies chest pain, shortness of breath, fever, chills, cough, wheezing, palpitations. Physical Exam Vital Signs VITALS BP 127/57 P 56 TEMP 97.9 SP02 96%RA RESP 18 PHYSICAL Full cervical extension range of motion. Full TMJ range of motion. TMD 3 finger breaths Mallampati Score 1 Dentition: full upper/lower dentures Lungs: clear throughout to auscultation Cardiac: regular rate and rhythm, II-III/ systolic with with radiation to carotids vs bruit Spine: normal Extremities: no edema Lab Results Anesthesia Preop Results Results Anesthesia Widget: WBC 5.90 K/ul (4.8-10.8) 08/08/22 Hgb 11.4 g/dl (12.0-16.0) L 08/08/22 Hct 35.1 % (34.1-44.9) 08/08/22 Plt 211 K/uL (130-400) 08/08/22 Na 140 mmol/L (136-145) 08/08/22 K 4.2 mmol/L (3.5-5.1) 08/08/22 Cl 104 mmol/L (98-107) 08/08/22 CO2 29 mmol/L (21-32) 08/08/22 BUN 21 mg/dl (6-23) 08/08/22 Creat 0.51 mg/dl (0.6-1.2) L 08/08/22 Glucose Level 116 mg/dl (70-99(Fasting)) H 08/08/22 PT 10.6 Seconds (9.0-12.0) 08/08/22 PTT 25.6 Seconds (21.0-31.0) 08/08/22 INR 1.0 (0.9-1.1) 08/08/22 HA1c 6.3 % (4.5-5.6) H 08/08/22 Urine Color Yellow 07/17/22 Urine Appearance Clear (Clear) 07/17/22 Urine pH 6.5 (4.5-7.5) 07/17/22 Urine Specific [place] 1.018 (1.000-1.030) 07/17/22 Urine Protein Trace (Negative) H 07/17/22 Urine Glucose (UA) 3+ (Negative) H 07/17/22 Urine Ketones Negative (Negative) 07/17/22 Urine Blood 3+ (Negative) H 07/17/22 Urine Nitrite Negative (Negative) 07/17/22 Urine Bilirubin Negative (Negative) 07/17/22 Urine Urobilinogen Negative (Negative) 07/17/22 Urine Leukocyte Esterase 1+ (Negative) H 07/17/22 Urine WBC (Auto) >30 /hpf (0-5) H 07/17/22 Urine RBC (Auto) 10-30 /hpf (0-4) H 07/17/22 Urine Hyaline Casts (Auto) 1-5 /lpf (0-5) 07/17/22 Urine Epithelial Cells (Auto) 20-30 /lpf (0-5) H 07/17/22 Urine Bacteria (Auto) Negative (Negative) 07/17/22 Blood Type A Positive 08/08/22 Antibody Screen NEGATIVE 08/08/22 Testing Electrocardiogram Date: 03/17/22 Sinus rhythm with occasional PVCs at 72 bpm. Inferior infarct (cited on or before 06/20/1999). Chest X-Ray Date: 07/17/22 CXR with right sided rib series: FINDINGS: No acute fractures are seen in the right ribs. There is suggestion of old healed fractures. The chest wall and soft tissues are normal. Calcified aortic knob is seen. The lungs are clear. No evidence of pleural effusion or pneumothorax. IMPRESSION: No evidence of acute fracture or other acute abnormalities in the visualized portions of the chest. Echocardiogram Date: 08/19/20 EF 50%. Borderline global hypokinesis of the left ventricle. Trace to mild MR. Other Testing Head CT (07/17/22) FINDINGS: No acute intracranial hemorrhage, midline shift, intracranial mass, hydrocephalus, territorial ischemia or abnormal extra-axial collection. Age- related involutional changes. White matter hypodensities suggestive of chronic hypervascular ischemic disease. Unchanged ventriculomegaly, likely on an ex vacuo basis. The calvarium is intact. Prior bilateral lens repair. The paranasal sinuses, mastoid air cells, and middle ear cavities are clear. IMPRESSION: No acute intracranial abnormality or calvarial fracture. Neck CTA (08/12/20) Findings: Visualized portions lung apices reveal mild interlobular septal thickening and multiple scattered subpleural right apical subcentimeter nodules likely infectious/inflammatory. The right carotid revealed no evidence of aneurysm and no evidence of dissection. There is no evidence of hemodynamic significant stenosis. The left carotid revealed no evidence of hemodynamic significant stenosis. There is no evidence of aneurysm. There is no evidence of dissection. Calcific plaque is visualized at the left carotid bifurcation without evidence of significant luminal narrowing. There is no evidence of hemodynamically significant vertebral stenosis. There is no evidence of vertebral dissection. The vertebral basilar junction remains unusual in appearance with tortuosity as well as a possible basilar web. IMPRESSION: No evidence of hemodynamically significant carotid or vertebral artery stenosis. No evidence of dissection. COVID-19 Risk Screen Screening Information COVID-19 Screen Date: 08/09/22 Exposure 21 Days Family/Household +COVID Last 21 Days: No Exposure 10 Days Any COVID Exposure Last 10 Days: No Symptoms Last 10 Days Experienced COVID Sx Last 10 Days: No + COVID 0-90 Days COVID + in Last 0-90 Days: No
--- NOTE | 2022-09-14 06:41 | History & Physical Report ---
Date of Service September 14, 2022 Assessment & Plan (1) Osteoarthritis of left knee: We will proceed with a left total knee arthroplasty. Postoperatively she will be started back on her aspirin and Plavix. She will be kept overnight in the hospital for postop medical management. She plans to use [employer] upon discharge. History of Present Illness Chief Complaint: Osteoarthritis of the left knee. Primary Care Provider: KATARZYNA Sibley Cristiane is a pleasant 72-year-old female who has been dealing with chronicworsening left knee pain. She is struggling more and more with it. X- rays and clinical examination have been diagnostic for advanced osteoarthritis of the left knee. After failing conservative treatment, she has elected to p roceed with a left total knee arthroplasty. . Allergies Allergy/AdvReac Type Severity Reaction Status Date / Time No Known Allergies Allergy Verified 08/24/22 11:10 Home Medications Medication Instructions Recorded Confirmed Type cyanocobalamin (vitamin B-12) 1,000 mcg IM MONTHLY 03/27/19 08/24/22 History 1,000 mcg/mL injection solution cholecalciferol (vitamin D3) 75 3,000 units PO QAM 04/05/20 08/24/22 History mcg (3,000 unit) tablet multivitamin (Daily Multi-Vitamin 1 tab PO QAM 04/05/20 08/24/22 History tablet) nitroglycerin 0.4 mg sublingual 0.4 mg sublingual DIRECTED PRN 04/05/20 08/24/22 History tablet Chest Pain acetaminophen 500 mg tablet 1,000 mg PO Q6H PRN Fever Or Pain 08/10/20 08/24/22 History (Tylenol Extra Strength) aspirin 81 mg tablet,delayed 81 mg PO QAM #21 tabs 08/13/20 08/24/22 Rx release pen needle, diabetic 31 gauge x #100 ea 02/15/21 08/01/22 Rx 5/16" (Unifine Pentips) atorvastatin 40 mg tablet 40 mg PO QAM #90 tabs 09/04/21 08/24/22 Rx lisinopril 10 mg tablet 10 mg PO QAM #90 tabs 12/01/21 08/24/22 Rx tramadol 50 mg tablet 50 mg PO Q8H PRN pain #30 tabs 12/08/21 08/24/22 Rx metoprolol succinate 25 mg 25 mg PO QAM #90 tabs 03/06/22 08/24/22 Rx tablet,extended release 24 hr blood sugar diagnostic (OneTouch #200 ea 04/23/22 08/01/22 Rx Verio test strips) clopidogrel 75 mg tablet 75 mg PO QAM #90 tabs 05/24/22 08/24/22 Rx metformin 1,000 mg tablet 1,000 mg PO BID #180 tabs 06/11/22 08/24/22 Rx alendronate 70 mg tablet (Fosamax) 70 mg PO .COMPLEX #12 tabs 06/12/22 08/24/22 Rx Saccharomyces boulardii 250 mg 250 mg PO BID #20 caps 07/17/22 08/24/22 Rx capsule (Florastor) loratadine 10 mg tablet (Claritin) 10 mg PO DAILY PRN itching #30 tabs 07/23/22 08/24/22 Rx escitalopram oxalate 20 mg tablet 20 mg PO QAM 07/31/22 08/24/22 History magnesium oxide 500 mg tablet 1,500 mg PO HS 07/31/22 08/24/22 History Past Med/Surg History Medical History Bladder mass urology appt with Dr. Jerez on 08/01 CAD (coronary artery disease) Stent x1 (1998) Follows with Dr. Horowitz Cardiac murmur Trace to mild MR per 08/19/20 echo Carotid artery plaque Per 08/12/20 neck CTA: Calcific plaque is visualized at the left carotid bifurcation without evidence of significant luminal narrowing. No evidence of hemodynamically significant carotid or vertebral artery stenosis. DM type 2 (diabetes mellitus, type 2) Hematuria Bladder mass noted on recent CT- referred to urology History of myocardial infarction 1998 History of TIA (transient ischemic attack) x2 (most recent was approximately 1.5 years ago)- reason for plavix HLD (hyperlipidemia) HTN (hypertension) Iron deficiency anemia Lyme disease hx Memory difficulty Osteoarthritis Osteopenia Osteoporosis Renal cyst Spinal stenosis Surgical History History of cardiac catheterization 1998 - stent placed 1999 - no stents History of cataract surgery History of cholecystectomy History of colonoscopy History of dental surgery History of esophagogastroduodenoscopy (EGD) History of gastric bypass History of hysterectomy PONV (postoperative nausea and vomiting) Status post placement of implantable loop recorder Family History Family/Other Colorectal cancer Cousin Aunt Breast cancer Father Myocardial infarction Denies family history of Ovarian cancer Prostate cancer Social History Smoking Status: Former smoker Tobacco Type: Cigarettes Second Hand Exposure: No; Hx Alcohol Use: No Hx Substance Use: No Preferred Language: Yoruba Communication Ability: Effective Visual Impairment: Limited Hearing Ability: Normal Instructional Technology Instructor Required: No Beliefs That Will Affect Care: None marital status: Current Living Situation: Spouse current occupational status: retired How many Children do You have: 1 Feels Safe at Home: Yes Childhood Exposure to Second-Hand Smoke: No caffeine: Yes during the past year weight has: remained stable Dental Care, Regularly: No Physical Activity Frequency: Daily Seatbelt Use: always Sunscreen Use: No Do you think of yourself as: straight/heterosexual Gender Identity: Female Assistive Devices: Cane, Denture - Upper, Denture - Lower and Glasses Review of Systems All systems reviewed & are unremarkable except as noted in HPI & below. Physical Exam On physical examination of the left knee, she has a valgus deformity. She has pain of the distal lateral femoral condyle and over the lateral joint line.. Constitutional WD/WN, vitals as above Eyes PERRL, conjunctivae normal, anicteric sclerae ENMT external ear and nose normal, oropharynx normal Neck trachea midline, no thyromegaly Respiratory normal respiratory effort, lungs clear to auscultation Cardiovascular RRR, no murmur, no edema Gastrointestinal (Abdomen) normal bowel sounds, soft, nontender, no hepatosplenomegaly Skin no rashes, warm and dry Psychiatric A+Ox3, euthymic affect Results & Data Results & Data Laboratory Results . Diagnostic Findings X-rays of the left knee show advanced osteoarthritis with joint space narrowing osteophyte formation and [id number] articulation. Mostly involves the lateral compartment.. PG Care Time/CCT Total # of Minutes Spent Total Time Spent with Patient: Total time spent is greater than 50% in coordination of care (as documented) at patient's floor/unit and/or counseling patient: Coding Level of Care Code None Diagnoses Osteoarthritis of left knee M17.12
[~2022-09-14 07:45] MED LIST changes: +ACETAMINOPHEN 500 MG TAB PO SCH; -ASPI81TA28 PO; +BUPIVACAINE 0.5 % 5 MG/1 ML PF 10ML VIAL ONE; -BUPR200T2 PO; -CALC-51 PO; -CHOL1000 PO; -CYNI1000 IM; +FAMOTIDINE 20 MG TAB PO SCH; +GABAPENTIN 300 MG CAP PO SCH; -INSDGI SC; -LISI-1116 PO; +LR 500ML BOLUS, THEN 15ML/HR IV SCH; +LR 60ML/HR IV SCH; -METF-384 PO; -METO25TA3 PO; -MULT-506 PO; -NTRGSL/4 UT; +ORTHO JOINT MIX INFIL SCH; -RANITAB33 PO; +ROPIVACAINE 0.5% 5 MG/ML 30 ML VIAL ONE; -SIMV40TA2 PO; +TRANEXAMIC ACID 1,000 MG **IV Intra-op IV SCH; +TRANEXAMIC ACID 1,000 MG **IV Pre-op IV SCH; +ceFAZolin 2000MG 2,000 MG/15 ML SYR IV SCH; +dexAMETHasone 4 MG TAB PO SCH
[2022-09-14] MEDS ORDERED: PROPOFOL IV EMULSION 10 MG/ML 20 ML VIAL IV ONE (08:30)
[2022-09-14] MEDS ORDERED: DEXAMETHASONE SOD INJ 4 MG/ML VIAL ONE (08:30)
[2022-09-14] MEDS ORDERED: ONDANSETRON INJ 2 MG/ML 2 ML VIAL ONE (08:30)
[2022-09-14] MEDS ORDERED: fentaNYL citrate 100 MCG/2 ML VIAL ONE (08:31)
[2022-09-14] MEDS ORDERED: MIDAZOLAM HCL 1 MG/ML 2ML VIAL ONE (08:31)
[2022-09-14] MEDS ORDERED: ATROPINE SULFATE 0.1 MG/ML 10ML SYR IV PRN (09:24)
[2022-09-14] MEDS ORDERED: ePHEDrine sulfate 50 MG/ML AMP IV PRN (09:24)
[2022-09-14] MEDS ORDERED: fentaNYL citrate 100 MCG/2 ML VIAL IV PRN (09:24)
[2022-09-14] MEDS ORDERED: ONDANSETRON INJ 2 MG/ML 2 ML VIAL IV PRN ×2 (09:24→14:31)
[2022-09-14] MEDS ORDERED: ORTHO JOINT ANESTHETIC ONE (09:40)
[2022-09-14] MEDS ORDERED: GLYCOPYRROLATE 0.2 MG/ML VIAL ONE (10:53)
[2022-09-14] MEDS ORDERED: ePHEDrine sulfate 50 MG/ML AMP ONE (10:56)
--- NOTE | 2022-09-14 11:37 | Operative Report ---
PG Post Operative Report Pre & Post Diagnosis Operation Date: 09/14/22 10:25 Pre-Op Diagnosis: Left Knee Degenerative Joint Disease Post-Op Diagnosis: Left Knee Degenerative Joint Disease I identified the patient and participated in the time-out.: Yes Procedure Operation Date: 09/14/22 10:25 Actual Procedures p Left Total Knee Arthroplasty(Left) - Brandon Nagy DO Surgeon Brandon Nagy DO [employer] Machine Mechanic Brandon Messer PA-C Estimated Blood Loss 30 Findings Consistent with Post-Op Diagnosis Specimens Left femoral and tibial bone Description of Procedure Implants used: I used a [employer] Person[employer] total knee arthroplasty system with a size 5 standard femur, D tibia, 31 oval patella, and a size 13 medial congruent polyethylene bearing. All components were cemented in place with Biomet cement. Cristiane arrived [facility] for the above procedure. She was seen in the preoperative holding area and the operative extremity was identified and signed. She was given a preoperative antibiotic, TXA, a spinal anesthetic and an adductor nerve block. She was taken back to the operating room and laid on the table in supine position. She was given basic sedation. The operative knee was then prepped and draped in sterile fashion. A timeout was done, and the patient and the operative extremity was properly identified. A midline incision was made directly over the patella. Dissection was taken down to the extensor mechanism. A midvastus arthrotomy was used. The medial retinaculum was released and the fat pad was mostly excised. The knee was flexed and the ACL, PCL, and meniscus were removed. A drill was sent down the center of the femoral canal followed by an intramedullary dax. Off that dax a distal femoral cutting block was placed. 9 mm was resected off the distal femur at 5 of valgus. A posterior referencing AP sizing guide was then placed on the distal femur. The femur measured to be a size 5. 2 drill holes were placed in 3 of external rotation. A 4-in-1 cutting block was then impacted into place. Anterior, posterior, and chamfer cuts were then made. The proximal tibia was then exposed. An external tibial alignment guide was placed. A tibial cut guide was then anchored in place and the proximal tibia was then resected. The posterior aspect of the knee was then opened up and any additional meniscus fragments and osteophytes were removed. The tibia measured to be a size D. The tibial plate was then placed in the appropriate rotation and the tibia was drilled and punched. Trial components were then placed. I used a size 13 medial congruent polyethylene insert. The knee was brought through a full range of motion and felt to be stable. The peg holes for the femoral component were then drilled. The patella was then everted and 9 mm was resected off the posterior aspect of the patella. The patella measured to be a size 31 oval. 3 peg holes were then drilled. A trial patella was placed. The knee was once again brought through a full range of motion and felt to be stable. Trial components were then removed. The surrounding soft tissues were injected with 100 cc of an orthopedic pain control cocktail. All components were then cemented into place with Biomet cement. The final polyethylene insert was then snapped into place. Once cement was dry the tourniquet was deflated. Hemostasis was obtained. A dilute betadyne lavage was then done for 3 minutes. The joint was then irrigated with normal saline solution. The midvastus arthrotomy was then closed with #1 Vicryl suture. The skin was closed with 2-0 Vicryl, 3-0V lock suture, and calderon. A soft compressive dressing was placed. She was then transferred to a hospital bed and taken to the postanesthesia care unit in stable condition. She tolerated the procedure well. Brandon Messer PA-C, was present for the entire procedure. He was critical for patient positioning, prepping, draping, retraction exposure, wound closure and application of sterile dressing. I attest to the content of the Intraoperative Record and any orders documented therein. Any exceptions are noted below.
--- NOTE | 2022-09-14 12:57 | XRay Report ---
TWO VIEWS LEFT KNEE CLINICAL HISTORY: Postoperative examination. FINDINGS: AP and crosstable lateral portable views of the left knee are obtained. A left knee arthrop lasty is in near anatomic alignment. There has been undersurface remodeling of the patella. No acute fracture is seen. There are expected postoperative changes around the knee including skin clips, soft tissue edema, and subcutaneous gas. IMPRESSION: Expected postoperative changes status post left knee arthroplasty. No acute fracture is s een. ACT 112: Negative or not required by law. Electronically signed by: Vimal Marquez M.D. 09/14/2022 12:56 PM
--- NOTE | 2022-09-14 13:07 | Anesthesiology Progress Note ---
Date of Service September 14, 2022 Anesthesia Post Procedure Vital Signs Vital Signs: Temp Pulse Pulse Resp BP Pulse Ox O2 Del Method 09/14/22 12:50 62 16 133/52 L 94 Room Air 09/14/22 12:40 64 18 116/51 L 92 Room Air 09/14/22 12:30 70 18 145/52 H 92 Room Air 09/14/22 12:20 77 18 151/57 H 92 Room Air 09/14/22 12:10 67 21 148/60 H 100 Oxymask 09/14/22 12:01 97.7 F 65 18 131/69 100 Oxymask 09/14/22 08:19 98.2 F 56 L 20 134/52 L 98 Room Air O2 Flow Rate 09/14/22 12:50 09/14/22 12:40 09/14/22 12:30 09/14/22 12:20 09/14/22 12:10 10 09/14/22 12:01 10 09/14/22 08:19 Pain Intensity Left Knee: Pain Intensity: 3 Transfer of Care Handoff Completed per policy Notes Mental Status: alert / awake / arousable and participated in evaluation Patient Amnestic to Procedure: Yes Nausea / Vomiting: adequately controlled Pain: adequately controlled Airway Patency, RR, SpO2: stable & adequate BP & HR: stable & adequate Hydration State: stable & adequate Neuraxial Anesthesia: was administered and sensory block is resolving Anesthetic Complications: no major complications apparent and Pt Satisfied with anesthetic care
--- NOTE | 2022-09-14 14:09 | Communication Note ---
Date of Service: September 14, 2022 The patient stated having chest pain in PACU. A 12 lead EKG was ordered which was unremarkable compared to a previous EKG. Upon examination, the patient stated that her chest pain resolved. She stated that it was "probably nerves." The patient's vital signs were stable and stable to be discharged to her floor bed.
[2022-09-14] MEDS ORDERED: LORATADINE 10 MG TAB PO PRN (14:31)
[2022-09-14] MEDS ORDERED: NITROGLYCERIN SL 0.4 MG/TAB TAB SL PRN (14:31)
[2022-09-14] MEDS ORDERED: bisacodyL 10 MG SUPP PR PRN (14:31)
[2022-09-14] MEDS ORDERED: HYDROmorphone INJ 0.5 MG/0.5 ML SYR IV PRN (14:31)
[2022-09-14] MEDS ORDERED: PHARMACY GLYCEMIC MGMT CONSULT PRN (14:31)
[2022-09-14] MEDS ORDERED: METOCLOPRAMIDE HCL INJ 5 MG/ML 2 ML VIAL IV PRN (14:31)
[2022-09-14] MEDS ORDERED: MAGNESIUM HYDROXIDE SUSP 30 ML UDC PO PRN (14:31)
[2022-09-14] MEDS ORDERED: oxyCODONE HCL IR 5 MG TAB (IMMEDIATE RELEASE) PO PRN (14:31)
[2022-09-14] MEDS ORDERED: NALOXONE HCL 0.4 MG/1 ML VIAL/CARP IV PRN (14:31)
[2022-09-14] MEDS: SODIUM CHLORIDE 0.9% 1000ML 1,000 ML IV SCH ×2 (15:09→23:38)
[2022-09-14] MEDS ORDERED: GLUCAGON FOR INJ 1 MG VIAL IM PRN (15:30)
[2022-09-14] MEDS ORDERED: GLUCOSE 10 TAB/TUBE PO PRN (15:30)
[2022-09-14] MEDS ORDERED: CARBOHYDRATES FOR HYPOGLYCEMIA PO PRN (15:30)
[2022-09-14] MEDS ORDERED: DEXTROSE 50% 50 ML SYRINGE IV PRN (15:30)
[2022-09-14] MEDS ORDERED: GLUCOSE 40% GEL 15 GM TUBE PO PRN (15:30)
--- NOTE | 2022-09-14 15:30 | Pharmacy Report ---
Pharmacy Glycemic Short Note 2 - Date of Service September 14, 2022 - Glycemic Short BSG Results (Last 24 hours): 09/14/22 09/14/22 08:12 12:35 POC Glucose 93 165 H OUTPATIENT ANTIDIABETIC REGIMEN: * Metformin 1000 mg PO BID * HbA1c = 6% ASSESSMENT: * 72 y/o F admitted for L total knee arthroplasty. Patient has history of diabetes managed at home on oral Metformin only. * Will hold oral Metformin for now and use only basal/ bolus insulin for glycemic control. * BSGs have been at goal so far but patient did receive 4 mg IV Dexamethasone and 8 mg of PO Dexamethasone prior to surgery today. * Will hold basal insulin for now unless BSGs trends up. * Novolog ordered based on wt and stress of 2 PLAN FOR INPATIENT GLYCEMIC CONTROL: * Hold outpatient oral diabetes medications * Basal insulin * Hold today * Bolus insulin * NovoLog per scale ACHS or Q6hrs while NPO * Goal Range: Low 110 mg/dL - High 140 mg/dL * Correction Factor: 30 mg/dL/unit * Nutritional / Prandial insulin per carb ratio of 1 unit per 10 grams CHO consumed
--- NOTE | 2022-09-14 17:06 | Electrocardiogram Report ---
Test Reason : Blood Pressure : / mmHG Vent. 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
[2022-09-14] MEDS: ACETAMINOPHEN 500 MG TAB PO SCH ×2 (17:08→21:14)
[2022-09-14] MEDS: KETOROLAC TROMETHAMINE 15 MG/ML VIAL IV SCH ×2 (17:09→19:38)
[2022-09-14] MEDS: INSULIN ASPART PER UNIT SC SCH ×3 (17:10→20:46)
[2022-09-14] MEDS ORDERED: LANTUS PER UNIT CHARGE SQ ONE (17:15)
[2022-09-14] MEDS: ceFAZolin 2000MG 2,000 MG/15 ML SYR IV SCH (18:21)
[2022-09-14] MEDS: SACCHAROMYCES BOULARDII 250 MG CAP PO SCH (19:39)
[2022-09-14] MEDS: DOCUSATE SODIUM 100 MG CAP PO SCH (19:40)
[2022-09-14] MEDS ORDERED: SENNA 8.6 MG TAB PO SCH (21:00)
[2022-09-14] MEDS ORDERED: ATORVASTATIN 40 MG TAB PO SCH (21:00)
[2022-09-14] MEDS ORDERED: MAGNESIUM OXIDE 400 MG TAB PO SCH (21:00)
[2022-09-15] MEDS: ceFAZolin 2000MG 2,000 MG/15 ML SYR IV SCH (01:38)
[2022-09-15] MEDS: KETOROLAC TROMETHAMINE 15 MG/ML VIAL IV SCH ×2 (01:39→07:34)
[2022-09-15] MEDS: ACETAMINOPHEN 500 MG TAB PO SCH (05:10)
--- NOTE | 2022-09-15 07:15 | Orthopedic Progress Note ---
Date of Service September 15, 2022 Assessment & Plan (1) Status post left knee replacement: Overall she is doing very well. She is not having too much pain in the left knee. She will be seen by physical therapy today for ambulation and range of motion exercises. She can continue her aspirin and Plavix for DVT prophylaxis. She can be discharged home later today. She will follow-up with orthopedics in 2 weeks. Silverio Sauer was seen and examined at bedside this morning. Overall she seems to be doing okay. She is not having too much pain in the left knee. She has been up and ambulating into the hallways. She has no complaints.. Review of Systems All systems reviewed & are unremarkable except as noted in HPI & below. Physical Exam On physical examination of the left knee, the dressing is clean and dry. Her leg is out full extension. She has active dorsiflexion plantarflexion of her left ankle.. Results & Data Results & Data Laboratory Results . Diagnostic Findings Postoperative x-rays of the left knee show the prosthesis to be in anatomic alignment without any evidence of fracture, screws, or loosening. PG Care Time/CCT Total # of Minutes Spent Total Time Spent with Patient: Total time spent is greater than 50% in coordination of care (as documented) at patient's floor/unit and/or counseling patient: Coding Level of Care Code 33035 Post Operative Follow-Up Diagnoses Status post left knee replacement Z96.652
--- NOTE | 2022-09-15 07:16 | Discharge Summary ---
Date of Service September 15, 2022 Admission HPI (Per Admitting) Cristiane is a pleasant 72-year-old female who has been dealing with chronicworsening left knee pain. She is struggling more and more with it. X- rays and clinical examination have been diagnostic for advanced osteoarthritis of the left knee. After failing conservative treatment, she has elected to proceed with a left total knee arthroplasty. . Admission Exam (Per Admitting) On physical examination of the left knee, she has a valgus deformity. She has pain of the distal lateral femoral condyle and over the lateral joint line.. Principal Diagnosis Same as "Discharge Diagnosis" noted below under Discharge Instructions. Discharge Exam On physical examination of the left knee, the dressing is clean and dry. Her leg is out full extension. She has active dorsiflexion plantarflexion of her left ankle.. Discharge Data Procedures Performed Operation Date: 09/14/22 10:25 Actual Procedures p Left Total Knee Arthroplasty(Left) - Brandon Nagy DO Ordered Studies 09/14/22 05:00 US - OR guided needle placemen Routine Hospital Course (1) Status post left knee replacement: On September 14, 2022 Cristiane arrived at [facility] and underwent a left knee replacement without complication. She had a spinal anesthetic. Postoperatively she was started back on aspirin and Plavix for DVT prophylaxis and transferred to the general orthopedic floors. Her hospital course was uneventful. On postop day #1, her vital signs were stable and her pain was well controlled. She was able to participate well with physical therapy doing ambulation and range of motion exercises. She was then discharged home. She will follow-up with orthopedics in 2 weeks. PG Care Time/CCT Total # of Minutes Spent Total Time Spent with Patient: Total time spent is greater than 50% in coordination of care (as documented) at patient's floor/unit and/or counseling patient: Discharge Plan Discharge Items Patient Disposition: Home - Home Health Services Reason For Visit: DJD Left Knee Discharge Diagnosis: Left knee replacement Activity: As commented below Non-emergency contact: Surgeon Call non-emergency contact if: your wound has increased redness and your wound has increased drainage Follow-up/Referrals: Eli Gavin CRNP [Primary Care Provider] - Diet: Regular Addtl Attending Provider Instructions: Activity and Therapy Recommendations: * If you are using [facility] then therapy will be provided at your home until they feel you have accomplished all of your goals. * If you are using [facility] then Physical Therapy will be provided until they feel you are ready to start Outpatient Physical Therapy. * If you are not using home therapy then Outpatient Physical Therapy should start about 3-5 days from your day of surgery. Therapy will last about 6-10 weeks * It is important not to put a pillow under your knee when you are relaxing or sleeping. It is just as important to make sure you are getting your knee perfectly straight as it is to regain your knee bend. * You were shown a series of exercises in the hospital. Do these exercises three times each day including the exercises you were shown in physical therapy. * Get up and walk several times each day. For the first four weeks, try not to stand or walk for more than one hour at a time. If you do stand or walk for more than one hour, you will not hurt anything, but your leg will likely swell. * As you feel comfortable, you may change from the walker or crutches to a cane and then to independent walking. Medications: * Narcotic You will likely be sent home from the hospital with a prescription for the narcotic pain medication that worked best throughout your stay. * Aspirin Most patients will be required to take Aspirin 81mg twice a day for 6 weeks after surgery. This is obtained [id number] and a prescription is not necessary. * Other medications may be prescribed for specific circumstances. If you have any questions, please call the office at . * Resume previous home medications unless otherwise instructed TEDs/Elastic Stockings: The white elastic stockings help limit swelling and prevent blood clots from forming in your legs.~ The more you wear them, the more they work. Wear them for six weeks. Dressing Care: The dressing can be changed after physical therapy on postop day #1. Daily dry dressing changes for a few days, especially if the incision is still draining some. If the incision is not draining then you may leave the calderon open to air. If there is a little bit of drainage or if the calderon are getting stuck on your clothing then cover the incision with a dry dressing. The calderon will be removed at your 2 week follow-up appointment. Showering: You may shower 5 days from the day of surgery as long as the incision is no longer draining. You may shower with the calderon exposed. Let soapy water run over the calderon and pat them dry. Do not scrub or soak the incision. Things To Watch For: * Drainage from the incision site that occurs more than one week after your surgery. * Increased redness at the incision site. * Fever above 102 degrees Fahrenheit. * Unusual chest pain or shortness of breath. * Call [facility] at with any of the above problems Follow-Up Visit: Follow-up with Dr. Nagy's PA (Brandon Messer) 2-3 weeks after your day of surgery. He will remove your calderon and answer any questions. If you have any additional questions or concerns, Dr Nagy is usually in the office at the same time and will be available An appointment was probably scheduled when you signed-up for surgery in the office. If you have any questions call Office Instructions: More detailed instructions as well as Frequently Asked Questions were provided in a folder by our office when you signed-up for surgery. Please review these instructions when you get home. If you have any further questions or concerns, please feel free to call the office at [phone] Pending Studies at Discharge: No Stand-Alone Forms: [facility], Smoking Cessation Medications and DC Order Prescriptions: New oxycodone-acetaminophen 5-325 mg tablet 1 tab PO Q6H PRN (Reason: pain) Qty: 30 0RF Continued (DME) pen needle, diabetic [Unifine Pentips] 31 gauge x 5/16" needle See Dose Instructions .ROUTE .MEDSUPPLY Qty: 100 3RF Dose Instruction: As directed Rx Instructions: use daily lisinopril 10 mg tablet 10 mg PO QAM Qty: 90 3RF tramadol 50 mg tablet 50 mg PO Q8H PRN (Reason: pain) Qty: 30 0RF metoprolol succinate 25 mg tablet extended release 24 hr 25 mg PO QAM Qty: 90 3RF clopidogrel 75 mg tablet 75 mg PO QAM Qty: 90 3RF metformin 1,000 mg tablet 1,000 mg PO BID Qty: 180 3RF alendronate [Fosamax] 70 mg tablet 70 mg PO .COMPLEX Qty: 12 3RF Rx Instructions: 70 mg PO weekly; cyanocobalamin (vitamin B-12) 1,000 mcg/mL solution 1,000 mcg IM MONTHLY (DME) OneTouch Verio test strips Strip See Rx Instructions .Route Qty: 200 3RF Rx Instructions: test 1-2 times daily loratadine [Claritin] 10 mg tablet 10 mg PO DAILY PRN (Reason: itching) Qty: 30 0RF multivitamin [Daily Multi-Vitamin] tablet 1 tab PO QAM nitroglycerin 0.4 mg tablet, sublingual 0.4 mg SL DIRECTED PRN (Reason: Chest Pain) Rx Instructions: PLACE ONE TABLET UNDER THE TONGUE EVERY 5 MINUTES FOR UP TO 3 DOSES OVER 15 MINUTES IF NEEDED FOR CHEST PAIN cholecalciferol (vitamin D3) 3,000 unit tablet 3,000 units PO QAM aspirin 81 mg Tablet,Delayed Release (Dr/Ec) 81 mg PO QAM Qty: 21 0RF acetaminophen [Tylenol Extra Strength] 500 mg Tablet 1,000 mg PO Q6H PRN (Reason: Fever Or Pain) magnesium oxide 500 mg tablet 1,500 mg PO HS escitalopram oxalate 20 mg tablet 20 mg PO QAM Rx Instructions: pt aware dose change atorvastatin 40 mg tablet 40 mg PO QPM Saccharomyces boulardii [Florastor] 250 mg capsule 250 mg PO BID Qty: 20 0RF Rx Instructions: swallow whole Admission Data Admit Date/Time: 09/14/22 12:06 Attending Provider: rBandon Nagy Admit Provider: Brandon Nagy Primary Care Provider: Eli Gavin Other Providers: [facility],Home Health
[2022-09-15] MEDS: SACCHAROMYCES BOULARDII 250 MG CAP PO SCH (07:31)
[2022-09-15] MEDS: DOCUSATE SODIUM 100 MG CAP PO SCH (07:31)
[2022-09-15] MEDS ORDERED: CLOPIDOGREL BISULFATE 75 MG TAB PO SCH ×2 (08:00→09:00)
[2022-09-15] MEDS ORDERED: ASPIRIN 81 MG ECTAB PO SCH (09:00)
[2022-09-15] MEDS ORDERED: METOPROLOL SUCC 25MG EXT REL TAB PO SCH (09:00)
[2022-09-15] MEDS ORDERED: lisinopril 10 MG TAB PO SCH (09:00)
[2022-09-15] MEDS ORDERED: ESCITALOPRAM OXALATE 20 MG TAB PO SCH (09:00)
[2022-09-15] MEDS ORDERED: MULTIVITAMIN TAB PO SCH (09:00)
[2022-09-15] MEDS: INSULIN ASPART PER UNIT SC SCH (09:17)
[2022-09-18] MEDS ORDERED: ALENDRONATE SODIUM 70 MG TAB PO SCH (06:30)
== END 2022-09-15 13:22 | disposition home health service (06) ==
LOC: 3E 07:45 → ASU 07:45